=== PATIENT | male | born 1940 | race Caucasian/White ===

== ENCOUNTER → 2017-11-06 | Outpatient (CLI) | payer MEDICARE, OTHER ==
--- NOTE | 2017-11-06 08:10 | CT ---
EXAMINATION TYPE: CT chest wo con DATE OF EXAM: 11/06/2017 COMPARISON: 12/09/2012 HISTORY: Pulmonary Fibrosis CT DLP: 1036.7 mGycm. Automated Exposure Control for Dose Reduction was Utilized. TECHNIQUE: CT scan of the thorax is performed without IV contrast. FINDINGS: LUNGS: There are peripheral areas of groundglass consolidation involving both lungs. Interlobular sep katherine thickening noted at the lung bases. Mild central and basilar bronchiectasis noted. There is no pn eumothorax. 3 mm nodule left upper lobe. MEDIASTINUM: Lack of IV contrast is noted to limit evaluation for mediastinal and especially hilar ad enopathy. Heart is enlarged. Coronary artery calcification and atherosclerotic change of the aorta. A stefano appears of normal caliber.. OTHER: No additional significant abnormality is seen. IMPRESSION: 1. Findings compatible with chronic interstitial lung disease correlate for pulmonary fibrosis. 2. There are peripheral groundglass changes involving both lungs which can occasionally be seen with atelectasis correlate for alveolitis or pneumonitis. 3. Cardiomegaly with coronary artery calcification. 4. There is a 3 mm nodule within the left upper lobe on axial image 16 correlate with 6 month follow- up CT scan to confirm stability.
== END | disposition home or self-care (01) ==
LOC: RADCTMAIN 06:50
PROVIDERS: ATTEND Internal Medicine Critical Care Medicine
DX: R91.8 Other nonspecific abnormal finding of lung field (principal); I51.7 Cardiomegaly; I25.10 Atherosclerotic heart disease of native coronary artery without angina pectoris; Z88.8 Allergy status to other drugs, medicaments and biological substances
CPT/HCPCS: 71250

== ENCOUNTER → 2017-12-07 | Outpatient (CLI) | payer MEDICARE, OTHER ==
[2017-12-07 12:11] LABS: Basophils % (A) 0 %; Eosinophils # (A) 0.2 k/uL (0-0.7); Eosinophils % (A) 3 %; HCT 41.2 % (39.0-53.0); HGB 13.1 gm/dL (13.0-17.5); Hypochromasia Slight; Lymphocytes # (A) 1.7 k/uL (1.0-4.8); Lymphocytes % (A) 22 %; MCH 25.8 pg (25.0-35.0); MCHC 31.8 g/dL (31.0-37.0); MCV 81.3 fL (80.0-100.0); Mean Platelet Volume 8.3; Monocytes # (A) 0.5 k/uL (0-1.0); Monocytes % (A) 7 %; Neutrophils # (A) 5.2 k/uL (1.3-7.7); Neutrophils % (A) 67 %; Platelet Count 290 k/uL (150-450); RBC 5.07 m/uL (4.30-5.90); RDW 15.2 % (11.5-15.5); WBC 7.7 k/uL (3.8-10.6)
[2017-12-07 12:20] LABS: Potassium 4.5 mmol/L (3.5-5.1)
[2017-12-07 14:26] LABS: Appearance,Urine Clear (Clear); Bilirubin,Urine Negative (Negative); Blood,Urine Negative (Negative); Color,Urine Light Yellow; Glucose,Urine (UA) Negative (Negative); Ketones,Urine Negative (Negative); Leukocyte Esterase,Urine Negative (Negative); Nitrite,Urine Negative (Negative); Protein,Urine Negative (Negative); Urobilinogen,Urine <2.0 mg/dL (<2.0)
== END | disposition home or self-care (01) ==
LOC: LABPAT 11:35
PROVIDERS: ATTEND Thoracic Surgery (Cardiothoracic Vascular Surgery)
DX: Z01.812 Encounter for preprocedural laboratory examination (principal); J84.9 Interstitial pulmonary disease, unspecified
CPT/HCPCS: 36415; 80051; 81003; 82565; 84520; 85025

== ENCOUNTER 2017-12-14 05:45 | Inpatient (IN) | payer MEDICARE, OTHER ==
[~2017-12-14 05:45] MED LIST: DEXAMETHASONE SOD PHOSPHATE 10 MG/ML 1 ML VIAL IV ONE; ONDANSETRON ODT 4 MG TAB PO ONE; ceFAZolin IN SWFI 2 GM/20 ML SYRINGE IVP ONE
[2017-12-14] MEDS: LACTATED RINGERS 1,000 ML IV SCH (06:37)
[2017-12-14] MEDS ORDERED: LIDOCAINE 1% 20 ML VIAL (10MG/ML) FOR IV START INTRADERMA ONE (06:37)
[2017-12-14] MEDS ORDERED: GLYCOPYRROLATE 0.2 MG/ML 2 ML VIAL ONE (07:37)
[2017-12-14] MEDS ORDERED: PROPOFOL 10 MG/ML 20 ML VIAL IV ONE (07:37)
[2017-12-14] MEDS ORDERED: fentaNYL (PF) 50 MCG/ML 2 ML AMP ONE (07:37)
[2017-12-14] MEDS ORDERED: SUCCINYLCHOLINE CHLORIDE 100 MG/5 ML SYR IV ONE (07:37)
[2017-12-14] MEDS ORDERED: NEOSTIGMINE 1 MG/ML 10 ML VIAL ONE (07:37)
[2017-12-14] MEDS ORDERED: ePHEDrine SULFATE/0.9% NACL/PF 50 MG/5 ML SYRINGE IV ONE (07:37)
[2017-12-14] MEDS ORDERED: ROCURONIUM BROMIDE 10 MG/ML 10 ML VIAL IV ONE (07:37)
[2017-12-14] MEDS ORDERED: LIDOCAINE 1% INJ 10MG/ML (20 ML MDV) ONE (07:37)
[2017-12-14] MEDS ORDERED: MIDAZOLAM 2 MG/2 ML VIAL ONE (07:37)
[2017-12-14] MEDS ORDERED: BUPIVACAINE (PF) 0.5% 30 ML VIAL SQ ONE ×2 (08:17)
[2017-12-14] MEDS ORDERED: IPRATROPIUM-ALBUTEROL 3 ML NEB IH PRN (09:01)
[2017-12-14] MEDS ORDERED: BISACODYL 10 MG SUPP RECTAL PRN (09:01)
[2017-12-14] MEDS ORDERED: ONDANSETRON 4 MG/2 ML VIAL IVP PRN (09:01)
[2017-12-14] MEDS ORDERED: traMADol 50 MG TAB PO PRN (09:10)
--- NOTE | 2017-12-14 09:16 | P.OP ---
Date of Procedure: 12/14/17 Preoperative Diagnosis: Bilateral pulmonary infiltrates Postoperative Diagnosis: Same Procedure(s) Performed: Left thoracoscopic lung biopsy Anesthesia: GETA Surgeon: John Lee Estimated Blood Loss (ml): 10 IV fluids (ml): 700 Urine output (ml): 0 Pathology: other (Biopsies of left upper and left lower lobe was sent for pathology as well as cultures.) Disposition: PACU Indications for Procedure: 77-year-old male with exertional dyspnea and bilateral interstitial infiltrates and pulmonary fibrosis. Diagnostic biopsy was indicated for prognosis and possible therapy. Operative Findings: The lung was pink with scattered areas of anthracotic pigmentation. Lung compliance was poor. Description of Procedure: The patient was brought to the operating room, placed supine on the operating table, anesthetized and intubated with a double-lumen endotracheal tube. The airway was quite collapsible consistent with COPD. There were no endobronchial lesions noted. Double-lumen endotracheal tube was positioned with the bronchoscope and secured. Patient was turned in the right lateral decubitus position and the left chest sterilely prepped and draped. 3 one-inch incisions were made in the left chest and the left pleural space was entered. The left lung was deflated. Wedge biopsies of the inferior portion of the left lower and left upper lobe were obtained with multiple firings of Endo TERESA stapler. The lung specimens were split on the back table a small portion was sent for culture and the remainder for path. 28-Japanese chest tube was placed through separate stab incision and positioned posterior apically. Was secured with 0 Ethibond suture. Rib blocks were performed at the level of the incisions with half percent Marcaine. Incisions were closed with layers of Vicryl suture. Sterile dressings were applied and the patient was turned supine and extubated and transferred to recovery in stable condition.
--- NOTE | 2017-12-14 09:37 | XR ---
EXAMINATION TYPE: XR chest 1V DATE OF EXAM: 12/14/2017 COMPARISON: CT thorax dated 11/06/2017 HISTORY: Postop lung biopsy TECHNIQUE: Single frontal view of the chest is obtained. FINDINGS: There is a newly placed left-sided thoracostomy tube. No residual thorax is identified. Mi ld reactive pleural thickening is seen along the periphery of the costophrenic angle. There are overa ll low lung volumes and right basilar linear airspace disease that likely represents atelectasis. Car diomediastinal silhouette is exaggerated secondary to low lung volumes. Multilevel moderate degenerat esther changes of the thoracic spine and mild acromioclavicular arthropathy are seen. IMPRESSION: Interval insertion of the left-sided thoracostomy tube status post left-sided lung biops y with no residual pneumothorax. Right basilar airspace disease likely represents atelectasis.
[2017-12-14] MEDS: MORPHINE SULFATE 4 MG/ML SYRINGE IV PRN ×4 (10:34→12:10)
[2017-12-14] MEDS ORDERED: diphenhydrAMINE 50 MG/ML 1 ML VIAL IVP ONE (12:09)
[2017-12-14] MEDS: ACETAMINOPHEN IV (For NPO) 1,000 MG in EMPTY BAG 1 BAG IVPB SCH ×3 (12:42→23:06)
[2017-12-14] MEDS: KETOROLAC 30 MG/ML 1 ML VIAL IVP SCH ×3 (13:32→23:10)
[2017-12-14] MEDS: DEXTROSE 5%-0.45% NACL 1,000 ML IV SCH (14:05)
[2017-12-14] MEDS: IPRATROPIUM-ALBUTEROL 3 ML NEB IH SCH ×3 (14:06→20:06)
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
[2017-12-14] MEDS: ceFAZolin IN SWFI 2 GM/20 ML SYRINGE IVP SCH ×2 (18:17→23:07)
[2017-12-14] MEDS: GABAPENTIN 300 MG CAP PO SCH ×2 (18:18→21:35)
[2017-12-14] MEDS: HEPARIN SODIUM,PORCINE 5,000 UNIT/ML 1 ML VIAL SQ SCH ×2 (18:18→23:09)
[2017-12-14] MEDS ORDERED: traZODone HCL 100 MG TAB PO SCH (21:00)
[2017-12-15] MEDS: LACTATED RINGERS 1,000 ML IV SCH (06:04)
[2017-12-15] MEDS: KETOROLAC 30 MG/ML 1 ML VIAL IVP SCH ×2 (06:09→12:46)
[2017-12-15] MEDS: ACETAMINOPHEN IV (For NPO) 1,000 MG in EMPTY BAG 1 BAG IVPB SCH (06:10)
[2017-12-15 06:30] LABS: Basophils % (A) 0 %; Eosinophils # (A) 0.2 k/uL (0-0.7); Eosinophils % (A) 3 %; HCT 39.1 % (39.0-53.0); HGB 12.3 gm/dL (13.0-17.5); Hypochromasia Slight; Lymphocytes % (A) 12 %; MCH 25.9 pg (25.0-35.0); MCHC 31.5 g/dL (31.0-37.0); MCV 82.3 fL (80.0-100.0); Mean Platelet Volume 7.9; Monocytes # (A) 0.6 k/uL (0-1.0); Monocytes % (A) 7 %; Neutrophils # (A) 6.9 k/uL (1.3-7.7); Neutrophils % (A) 77 %; Platelet Count 237 k/uL (150-450); RBC 4.75 m/uL (4.30-5.90); RDW 15.2 % (11.5-15.5); WBC 8.9 k/uL (3.8-10.6)
[2017-12-15 06:47] LABS: Albumin 3.6 g/dL (3.5-5.0); Potassium 4.2 mmol/L (3.5-5.1); Total Bilirubin 0.6 mg/dL (0.2-1.3); Total Protein 6.1 g/dL (6.3-8.2)
[2017-12-15] MEDS ORDERED: PANTOPRAZOLE 40 MG TABLET PO SCH (07:30)
--- NOTE | 2017-12-15 07:46 | XR ---
EXAMINATION TYPE: XR chest 1V DATE OF EXAM: 12/15/2017 CLINICAL HISTORY: Left lung biopsy with chest tube progress study. TECHNIQUE: Single AP portable foraminal view of the chest is obtained. COMPARISON: Chest x-ray from one day earlier. CT chest November 06, 2017. FINDINGS: There is persistent left apical chest tube. There is chronic parenchymal change with worse donny left lower lung opacity. There is persistent improving patchy right basilar opacity. Cardiac herber houette size is stable and upper limits of normal. Osseous structures are intact. No sizable pneumoth orax is seen. IMPRESSION: Chronic parenchymal changes with increasing left mid to lower lung atelectasis and/or inf iltrate. Improving right basilar atelectasis and/or infiltrate is noted. Stable left apical chest tub e without sizable pneumothorax.
[2017-12-15 08:32] VITALS: TEMP 97.3
[2017-12-15] MEDS: IPRATROPIUM-ALBUTEROL 3 ML NEB IH SCH ×4 (08:49→15:38)
[2017-12-15] MEDS: GABAPENTIN 300 MG CAP PO SCH (08:58)
[2017-12-15] MEDS: HEPARIN SODIUM,PORCINE 5,000 UNIT/ML 1 ML VIAL SQ SCH (08:58)
[2017-12-15] MEDS: DEXTROSE 5%-0.45% NACL 1,000 ML IV SCH (08:59)
[2017-12-15] MEDS ORDERED: FUROSEMIDE 40 MG TAB PO SCH (09:00)
[2017-12-15] MEDS ORDERED: METOPROLOL TARTRATE 50 MG TAB PO SCH (09:00)
--- NOTE | 2017-12-15 09:50 | P.PN ---
Subjective Progress Note Date: 12/15/17 Principal diagnosis: Bilateral pulmonary infiltrates, interstitial lung disease / pulmonary fibrosis , history of coronary artery disease, history of CVA/TIA, hearing disorder, GERD , vitamin D deficiency, gout, hypertension, hyperlipidemia, history of myocardial infarction, and history of neuropathy. POD #1 left thoracoscopic lung biopsy. Patient is sitting up to the bedside chair eating his breakfast. He is in no acute distress. He denies any complaints of shortness of breath or pain at this time. His left pleural chest tube remains to low continuous wall suction - 20 cm H2O. No air leak present. He is tolerating use of his incentive spirometry and is achieving 1250 mL with encouragement. Objective - Vital Signs Vital signs: Vital Signs Temp 97.3 F L 12/15/17 08:00 Pulse 78 12/15/17 08:00 Resp 17 12/15/17 08:00 BP 142/84 12/15/17 08:00 Pulse Ox 92 L 12/15/17 08:00 Intake & Output 12/14/17 12/15/17 12/15/17 18:59 06:59 18:59 Intake Total 550 320 Output Total 225 605 150 Balance 325 -285 -150 Weight 101.5 kg Intake: IV 550 Intake, IV Titration 320 Amount Dextrose 5%-0.45% NaCl 1, 320 000 ml @ 40 mls/hr IV . Q24H [facility] Rx#:[id number] Output: Chest Tube Drainage 45 Left Lateral Chest 45 Drainage 210 Left Chest 210 Urine 200 350 150 Estimated Blood Loss 25 Other: Voiding Method Urinal Urinal # Voids 1 - Constitutional General appearance: Present: cooperative, no acute distress, obese - Respiratory Details: Lung sounds essentially clear to his bilateral upper lobes, few scattered crackles to his bilateral bases. Respirations are symmetrical and nonlabored. Oxygen saturation are 92% on 2 L nasal cannula. He is achieving 1250 mL on his incentive spirometry with encouragement. Left pleural chest tube remains intact to low continuous wall suction -20 cm H2O. There is no air leak present. Draining thin serosanguineous drainage. 210 mL output since surgery. - Cardiovascular Details: Regular rhythm and rate. S1 and S2 present, negative for S3, gallop or murmur. Remote telemetry showing normal sinus rhythm heart rate 90. No edema present. Knee-high sequential compression devices in place to his bilateral lower extremities. - Gastrointestinal Gastrointestinal Comment(s): Abdomen is soft, nontender nondistended. Active bowel sounds all 4 abdominal quadrants. Tolerating oral intake. - Genitourinary Genitourinary Comment(s): Voiding clear yellow urine. Adequate urine output. 500 mL output in the last 8 hours. - Integumentary Integumentary Comment(s): Skin is warm and dry. No clubbing or cyanosis present. Left chest incisions clean dry and approximated. No drainage or redness present. Dressings clean and dry. - Neurologic Neurologic: Present: CNII-XII intact - Musculoskeletal Musculoskeletal: Present: gait normal, strength equal bilaterally - Psychiatric Psychiatric: Present: A&O x's 3, appropriate affect - Allied health notes Allied health notes reviewed: nursing - Labs CBC & Chem 7: 12/15/17 05:39 12/15/17 05:39 Labs: Abnormal Lab Results - Last 24 Hours (Table) 12/15/17 12/15/17 Range/Units 05:39 05:39 Hgb 12.3 L (13.0-17.5) gm/dL Chloride 97 L (98-107) mmol/L BUN 25 H (9-20) mg/dL Glucose 138 H (74-99) mg/dL Alkaline Phosphatase 133 H (38-126) U/L Total Protein 6.1 L (6.3-8.2) g/dL Microbiology - Last 24 Hours (Table) 12/14/17 08:32 Acid Fast Bacilli Smear - Final Lung - Left Acid Fast Bacilli Culture - Preliminary 12/14/17 08:32 Acid Fast Bacilli Smear - Final Lung - Left Acid Fast Bacilli Culture - Preliminary 12/14/17 08:32 Gram Stain - Preliminary Lung - Left Tissue Culture - Preliminary 12/14/17 08:32 Gram Stain - Preliminary Lung - Left Tissue Culture - Preliminary 12/14/17 08:32 Anaerobic Culture - Preliminary Lung - Left 12/14/17 08:32 Anaerobic Culture - Preliminary Lung - Left - Imaging and Cardiology Chest x-ray: report reviewed, image reviewed Assessment and Plan (1) Interstitial lung disease Current Visit: Yes Status: Acute Code(s): J84.9 - INTERSTITIAL PULMONARY DISEASE, UNSPECIFIED SNOMED Code(s): 455778295 (2) Hypertension Current Visit: Yes Status: Acute Code(s): I10 - ESSENTIAL (PRIMARY) HYPERTENSION SNOMED Code(s): 90101868 (3) Hyperlipidemia Current Visit: Yes Status: Acute Code(s): E78.5 - HYPERLIPIDEMIA, UNSPECIFIED SNOMED Code(s): 75695184 (4) Gout Current Visit: Yes Status: Acute Code(s): M10.9 - GOUT, UNSPECIFIED SNOMED Code(s): 12505895 (5) GERD (gastroesophageal reflux disease) Current Visit: Yes Status: Acute Code(s): K21.9 - GASTRO-ESOPHAGEAL REFLUX DISEASE WITHOUT ESOPHAGITIS SNOMED Code(s): 537188107 (6) Neuropathy Current Visit: Yes Status: Acute Code(s): G62.9 - POLYNEUROPATHY, UNSPECIFIED SNOMED Code(s): 649765853 (7) History of coronary artery disease Current Visit: Yes Status: Acute Code(s): Z86.79 - PERSONAL HISTORY OF OTHER DISEASES OF THE CIRCULATORY SYSTEM SNOMED Code(s): 671473214 (8) History of myocardial infarction Current Visit: Yes Status: Acute Code(s): I25.2 - OLD MYOCARDIAL INFARCTION SNOMED Code(s): 571040266 (9) Hearing disorder Current Visit: Yes Status: Acute Code(s): H91.90 - UNSPECIFIED HEARING LOSS , UNSPECIFIED EAR SNOMED Code(s): 089457658 Plan: 1. We will place his left pleural chest tube to waterseal this morning, repeat chest x-ray 2 hours after and if there is no sign of air leak or pneumothorax we will discontinue his chest tube. 2. Encourage use of his incentive spirometry every hour while awake. 3. Pulmonary recommendations per Dr. Stone 4. More recommendations to follow based on the patient's clinical course. Possible discharge home today. Time with Patient: Greater than 30
--- NOTE | 2017-12-15 10:22 | P.PN ---
Subjective Progress Note Date: 12/15/17 Principal diagnosis: Interstitial lung disease, of unclear etiology, status post thoracoscopic lung biopsy Pulmonary consult dated 12/14/2017 77-year-old male who underwent a video-assisted thoracoscopic lung biopsy seen by Dr. John Lee. The patient came to me with complaints of shortness of breath and dry nonproductive cough. The symptoms have been present for quite some time. The patient was evaluated with a 6 minute walk distance a pulmonary function test and a high-resolution computed tomography scan. Everything suggested evidence of interstitial lung disease/pulmonary fibrosis. He says diagnosis, the patient was sent for a thoracoscopic lung biopsy. It was done today. Was on the left side. The patient is resting comfortably. No major complaints other than for some mild pain. Not short of breath. The patient has a history of gastroesophageal reflux disease hypertension vitamin D deficiency and gout. His current active medications are reviewed. On 12/15/2017 he seen in follow-up on selective care unit. He is sitting up in the chair, denies any acute distress, denies any worsening dyspnea. He is seems to be quite comfortable at rest. Chest x-ray from this morning shows chronic parenchymal changes with increasing left mid to lower lung atelectasis and/or infiltrate. There is improving right basilar atelectasis noted. And stable left apical chest tube without sizable pneumothorax. Cardiothoracic surgery is anticipated to remove the left sided chest tube today. Vital signs remain stable, is currently on room air with O2 sat at 92%. Patient's are even and nonlabored, lung sounds are positive for bibasilar mid to end expiratory velcro crackles. Left pleural chest tube remains to low continuous wall suction -20 cm water, no air leak present. Patient is able to achieve 1250 ML on his incentive spirometry. Denies any shortness of breath or pain at this time. Lung wedge biopsy still pending at this time Objective - Vital Signs Vital signs: Vital Signs Temp 97.3 F L 12/15/17 08:00 Pulse 78 12/15/17 08:00 Resp 17 12/15/17 08:00 BP 142/84 12/15/17 08:00 Pulse Ox 92 L 12/15/17 08:00 Intake & Output 12/14/17 12/15/17 12/15/17 18:59 06:59 18:59 Intake Total 550 320 Output Total 225 605 150 Balance 325 -285 -150 Weight 101.5 kg Intake: IV 550 Intake, IV Titration 320 Amount Dextrose 5%-0.45% NaCl 1, 320 000 ml @ 40 mls/hr IV . Q24H [facility] Rx#:[id number] Output: Chest Tube Drainage 45 Left Lateral Chest 45 Drainage 210 Left Chest 210 Urine 200 350 150 Estimated Blood Loss 25 Other: Voiding Method Urinal Urinal # Voids 1 - Exam No acute distress, oriented 3. HEENT examination is grossly unremarkable. Mucous membranes are moist. No oral lesions. Neck supple. Full range of motion. No adenopathy thyromegaly or neck vein distention. Cardiovascular examination reveals regular rhythm rate. S1-S2 normal. No S3 or S4. No discernible murmur noted. Lungs reveal bibasilar crackles. There are Velcro in quality. He is somewhat restricted in his breathing. No rhonchi or wheezes. Breath sounds are equal bilaterally.. Left pleural chest tube is in place to wall suction, -20 cm of water, no air leak present Abdomen soft bowel sounds are heard. No masses or tenderness. Extremities are intact. No cyanosis clubbing or edema. Skin is without rash or lesion. Neurologic examination is brief but nonfocal. - Labs CBC & Chem 7: 12/15/17 05:39 12/15/17 05:39 Labs: Abnormal Lab Results - Last 24 Hours (Table) 12/15/17 12/15/17 Range/Units 05:39 05:39 Hgb 12.3 L (13.0-17.5) gm/dL Chloride 97 L (98-107) mmol/L BUN 25 H (9-20) mg/dL Glucose 138 H (74-99) mg/dL Alkaline Phosphatase 133 H (38-126) U/L Total Protein 6.1 L (6.3-8.2) g/dL Microbiology - Last 24 Hours (Table) 12/14/17 08:32 Gram Stain - Preliminary Lung - Left Tissue Culture - Preliminary 12/14/17 08:32 Gram Stain - Preliminary Lung - Left Tissue Culture - Preliminary 12/14/17 08:32 Acid Fast Bacilli Smear - Final Lung - Left Acid Fast Bacilli Culture - Preliminary 12/14/17 08:32 Acid Fast Bacilli Smear - Final Lung - Left Acid Fast Bacilli Culture - Preliminary 12/14/17 08:32 Anaerobic Culture - Preliminary Lung - Left 12/14/17 08:32 Anaerobic Culture - Preliminary Lung - Left Assessment and Plan Plan: Assessment: Interstitial lung disease, of unclear etiology, postop day #1, status post thoracoscopic lung biopsy History of CAD History of hyperlipidemia History of chronic kidney disease History of elevated PSA Rule out pneumoconiosis versus asbestosis as the patient has a significant occupational history. Plan: Patient remains stable from pulmonary standpoint, lung wedge biopsy still pending at this time, denies any dyspnea, denies any pain. CT surgery is planned and put in the left pleural chest tube to waterseal, and possibly removing it later on today there is no pneumothorax. Encouraged to use of incentive spirometry. Patient will need outpatient follow-up with Dr. Stone in the office regarding the results of his lung wedge biopsy, and the preliminary biopsy report will be done at this facility, and the final report will be done at the [facility] by Dr. Fransico Zavala. I performed a history & physical examination of the patient and discussed their management with my nurse practitioner, Eli Ayala. I reviewed the nurse practitioner's note and agree with the documented findings and plan of care. Lung sounds are positive for bibasilar mid to end expiratory Velcro crackles. The findings and the impression was discussed with the patient. I attest to the documentation by the nurse practitioner. Time with Patient: Less than 30
--- NOTE | 2017-12-15 10:28 | XR ---
EXAMINATION TYPE: XR chest 2V DATE OF EXAM: 12/15/2017 COMPARISON: Chest x-ray from earlier today. HISTORY: Left lung biopsy progress study. Chest tube. TECHNIQUE: Frontal and lateral views of the chest are obtained. FINDINGS: There is persistent left apical chest tube. There is persistent bilateral lower lung opaci ties. No large pleural effusion or pneumothorax is seen bilaterally. The cardiac silhouette size is s table and upper limits of normal. Multilevel spurring and spine is redemonstrated. IMPRESSION: Persistent left greater than right bilateral lower lung atelectasis and/or infiltrate. L eft-sided chest tube without sizable pneumothorax. No significant change from earlier today.
[2017-12-15 12:03] VITALS: BP 118/64; PULSE 71; RESP 15
--- NOTE | 2017-12-20 10:03 | P.DS ---
Providers Date of admission: 12/14/17 05:45 Expected date of discharge: 12/15/17 Attending physician: John Lee Consults: 12/14/17 09:01 Consult Physician Routine Consulting Provider: Phoenix Stone Reason/Comments: Pulmonary management Do you want consulting provider notified?: Already Contacted Primary care physician: Chago Fuller - Discharge Diagnosis(es) (1) Interstitial lung disease Current Visit: Yes Status: Acute (2) Hypertension Current Visit: Yes Status: Acute (3) Hyperlipidemia Current Visit: Yes Status: Acute (4) Gout Current Visit: Yes Status: Acute (5) GERD (gastroesophageal reflux disease) Current Visit: Yes Status: Acute (6) Neuropathy Current Visit: Yes Status: Acute (7) History of coronary artery disease Current Visit: Yes Status: Acute (8) History of myocardial infarction Current Visit: Yes Status: Acute (9) Hearing disorder Current Visit: Yes Status: Acute Hospital Course: FINAL DIAGNOSIS: 1. Bilateral pulmonary infiltrates 2. Interstitial lung disease/pulmonary fibrosis 3. History of coronary artery disease 4. History of CVA/TIA 5. Hearing disorder 6. GERD 7. Vitamin D deficiency 8. Hypertension 9. Hyperlipidemia 10. History of myocardial infarction 11. History of neuropathy PRINCIPAL PROCEDURE: 1. Left thoracoscopic lung biopsy HISTORY OF PRESENT ILLNESS: This is a 77-year-old gentleman who is followed by Dr. Phoenix Stone from pulmonary medicine on an outpatient basis. Recently, the patient has had complaints of progressive shortness of breath with a dry nonproductive cough. 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 A computed tomography scan of his chest was completed on an outpatient basis which demonstrated patchy areas of pulmonary fibrosis consistent with interstitial lung disease. Subsequently due to the patient's progressive shortness of breath and computed tomography scan results a consult was placed for cardiothoracic surgery for possible lung biopsy and diagnosis. Dr. Lee met with the patient and reviewed the computed tomography scan results with the patient and recommended an elective left thoracoscopic lung biopsy. HOSPITAL COURSE: The patient was admitted to the hospital and after obtaining consent he was taken to the operating room where he underwent elective left thoracoscopic lung biopsy performed by Dr. John Lee. The patient was recovered and subsequently transferred to [address] [place] [address] where he was further monitored. Patient's oxygen was weaned off and he was up ambulating in the hallway with minimal assistance. The patient has received written and verbal instructions regarding his medications, any activity restrictions, signs and symptoms requiring physician noted complications and his follow-up appointments. COMPLICATIONS: There were no postoperative complications. CONSULTATIONS: 1. Dr. Stone for pulmonary management. Plan - Discharge Summary Discharge Rx Participant: Yes New Discharge Prescriptions: No Action Nitroglycerin Sl Tabs [Nitrostat] 0.4 mg SUBLINGUAL Q5M PRN PRN Reason: Chest Pain Metoprolol Tartrate [Lopressor] 50 mg PO QAM Gabapentin 600 mg PO TID Omeprazole 40 mg PO QAM traZODone HCL 100 mg PO HS Furosemide [Lasix] 40 mg PO QAM Ergocalciferol (Vitamin D2) [Vitamin D2] 50,000 unit PO SA Allopurinol [Zyloprim] 100 mg PO BID Aspirin EC [Ecotrin Low Dose] 81 mg PO DAILY Discharge Medication List Metoprolol Tartrate [Lopressor] 50 mg PO QAM 03/26/14 [History] Nitroglycerin Sl Tabs [Nitrostat] 0.4 mg SUBLINGUAL Q5M PRN 03/26/14 [History] Gabapentin 600 mg PO TID 07/14/14 [History] Omeprazole 40 mg PO QAM 07/10/17 [History] Allopurinol [Zyloprim] 100 mg PO BID 12/12/17 [History] Ergocalciferol (Vitamin D2) [Vitamin D2] 50,000 unit PO SA 12/12/17 [History] Furosemide [Lasix] 40 mg PO QAM 12/12/17 [History] traZODone HCL 100 mg PO HS 12/12/17 [History] Aspirin EC [Ecotrin Low Dose] 81 mg PO DAILY 12/14/17 [History] Follow up Appointment(s)/Referral(s): John Lee MD [STAFF PHYSICIAN] - 01/11/18 2:00 pm Phoenix Stone DO [Doctor of Osteopathic Medicine] - 12/22/17 11:00 am Patient Instructions/Handouts: Chronic Lung Disease and Infection Prevention ( DC), Video Assisted Thoracoscopic Surgery (DC) Discharge Disposition: HOME WITH HOME HEALTH SERVICES
== END 2017-12-15 16:36 | disposition home health service (06) | DRG 164 ==
LOC: 2ORMAIN 05:45 → 6SEL 13:45
PROVIDERS: ADMIT Thoracic Surgery (Cardiothoracic Vascular Surgery); ATTEND Thoracic Surgery (Cardiothoracic Vascular Surgery)
PROC: 0BBJ0ZX Excision of Left Lower Lung Lobe, Open Approach, Diagnostic (ICD-10-PCS; principal; 2017-12-14 07:30)
PROC: 0BBG0ZX Excision of Left Upper Lung Lobe, Open Approach, Diagnostic (ICD-10-PCS; principal; 2017-12-14 07:30)
DX: J84.10 Pulmonary fibrosis, unspecified (principal); J98.11 Atelectasis; E78.5 Hyperlipidemia, unspecified; G62.9 Polyneuropathy, unspecified; H91.90 Unspecified hearing loss, unspecified ear; I12.9 Hypertensive chronic kidney disease with stage 1 through stage 4 chronic kidney disease, or unspecified chronic kidney disease; I25.10 Atherosclerotic heart disease of native coronary artery without angina pectoris; I25.2 Old myocardial infarction; K21.9 Gastro-esophageal reflux disease without esophagitis; M10.9 Gout, unspecified; N18.9 Chronic kidney disease, unspecified; Z79.899 Other long term (current) drug therapy; Z83.3 Family history of diabetes mellitus; Z86.73 Personal history of transient ischemic attack (TIA), and cerebral infarction without residual deficits; Z87.891 Personal history of nicotine dependence; Z96.641 Presence of right artificial hip joint; Z77.090 Contact with and (suspected) exposure to asbestos; Z88.8 Allergy status to other drugs, medicaments and biological substances; Z80.3 Family history of malignant neoplasm of breast; Z79.1 Long term (current) use of non-steroidal anti-inflammatories (NSAID); Z79.82 Long term (current) use of aspirin; E66.9 Obesity, unspecified; Z68.30 Body mass index [BMI] 30.0-30.9, adult; E55.9 Vitamin D deficiency, unspecified; Z86.14 Personal history of Methicillin resistant Staphylococcus aureus infection; Z95.5 Presence of coronary angioplasty implant and graft
CPT/HCPCS: 71045; 71046; 80053; 85025; 87070; 87075; 87077; 87116; 87186; 87205; 87206; 88307; 94640; 94760

== ENCOUNTER 2018-03-20 09:34 | Emergency (ER) | payer MEDICARE, OTHER ==
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
[2018-03-20 12:36] VITALS: BP 176/90; PULSE 54; RESP 16; TEMP 97.1
== END 2018-03-20 12:37 | disposition home or self-care (01) ==
LOC: EC 09:34
DX: M54.2 Cervicalgia (principal); R53.1 Weakness; I25.10 Atherosclerotic heart disease of native coronary artery without angina pectoris; H91.90 Unspecified hearing loss, unspecified ear; E78.5 Hyperlipidemia, unspecified; I10 Essential (primary) hypertension; I25.2 Old myocardial infarction; G62.9 Polyneuropathy, unspecified; Z86.73 Personal history of transient ischemic attack (TIA), and cerebral infarction without residual deficits; Z87.19 Personal history of other diseases of the digestive system; Z86.14 Personal history of Methicillin resistant Staphylococcus aureus infection; Z87.891 Personal history of nicotine dependence; Z95.5 Presence of coronary angioplasty implant and graft; Z96.641 Presence of right artificial hip joint; Z98.890 Other specified postprocedural states; Z79.82 Long term (current) use of aspirin; Z79.899 Other long term (current) drug therapy; V49.59XA Passenger injured in collision with other motor vehicles in traffic accident, initial encounter
CPT/HCPCS: 70450; 72125; 99284

== ENCOUNTER 2018-05-26 13:58 | Inpatient (IN) | payer MEDICARE, OTHER ==
[2018-05-26] MEDS ORDERED: VANCOMYCIN IV PER PHARMACY 1 EACH MISC MISCELLANE PRN (15:14)
[2018-05-26] MEDS ORDERED: HYDROcodone/APAP 5-325MG 1 EACH TAB PO STA (15:17)
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
[2018-05-26] MEDS ORDERED: VANCOMYCIN 1,750 MG in SODIUM CHLORIDE 0.9% 500 ML 500 ML IVPB STA (15:22)
[2018-05-26 15:48] LABS: Basophils % (A) 0 %; Eosinophils # (A) 0.4 k/uL (0-0.7); Eosinophils % (A) 4 %; HCT 43.1 % (39.0-53.0); HGB 13.5 gm/dL (13.0-17.5); Hypochromasia Slight; Lymphocytes # (A) 2.1 k/uL (1.0-4.8); Lymphocytes % (A) 23 %; MCH 25.9 pg (25.0-35.0); MCHC 31.4 g/dL (31.0-37.0); MCV 82.6 fL (80.0-100.0); Mean Platelet Volume 8.9; Monocytes # (A) 0.6 k/uL (0-1.0); Monocytes % (A) 7 %; Neutrophils # (A) 5.9 k/uL (1.3-7.7); Neutrophils % (A) 64 %; Platelet Count 296 k/uL (150-450); RBC 5.22 m/uL (4.30-5.90); RDW 15.4 % (11.5-15.5); WBC 9.2 k/uL (3.8-10.6)
[2018-05-26 15:55] LABS: Potassium 4.6 mmol/L (3.5-5.1)
[2018-05-26 16:00] LABS: Albumin 3.8 g/dL (3.5-5.0); C Reactive Protein 8.4 mg/L (<10.0); Calcium 9.7 mg/dL (8.4-10.2); Total Bilirubin 0.4 mg/dL (0.2-1.3); Total Protein 6.7 g/dL (6.3-8.2)
--- NOTE | 2018-05-26 16:31 | XR ---
EXAMINATION TYPE: XR ankle limited LT, XR tibia fibula LT DATE OF EXAM: 05/26/2018 CLINICAL HISTORY: Open wound outer left leg. TECHNIQUE: Frontal and lateral images of the left leg and ankle are obtained. COMPARISON: None. FINDINGS: No acute fracture or dislocation in left tibia or fibula is seen. Some demineralization is present. There is mild tricompartment joint space loss and spurring at level of knee. Posterior vascu lar calcification is present. Some demineralization is seen. There is no acute fracture/dislocation evident in the left ankle. The ankle mortise appears within normal limits. Small inferior calcaneal spur is noted. Mild diffuse subcutaneous edema is present. Ir regularity over lateral malleolus likely reflects open wound or ulcer. No suspicious adjacent cortica l destruction or periosteal reaction is noted to suggest acute osteomyelitis. IMPRESSION: As above.
[2018-05-26] MEDS ORDERED: NALOXONE 0.4 MG/ML 1 ML VIAL IV PRN (17:06)
[2018-05-26 19:57] VITALS: BMI 28.8
[2018-05-26] MEDS ORDERED: MELATONIN 5 MG TABLET PO PRN (20:17)
[2018-05-26] MEDS ORDERED: ATORVASTATIN 40 MG TAB PO SCH (21:00)
[2018-05-26] MEDS ORDERED: traZODone HCL 50 MG TAB PO SCH (21:00)
[2018-05-26] MEDS: METOPROLOL TARTRATE 50 MG TAB PO SCH (21:58)
[2018-05-26] MEDS: GABAPENTIN 300 MG CAP PO SCH (21:58)
[2018-05-27] MEDS: HYDROcodone/APAP 5-325MG 1 EACH TAB PO PRN ×4 (00:10→19:58)
[2018-05-27] MEDS: SODIUM CHLORIDE 0.9% 1,000 ML IV SCH ×2 (05:45→13:11)
[2018-05-27 06:50] LABS: Basophils % (A) 1 %; Eosinophils # (A) 0.2 k/uL (0-0.7); Eosinophils % (A) 4 %; HCT 39.4 % (39.0-53.0); HGB 12.4 gm/dL (13.0-17.5); Lymphocytes # (A) 1.2 k/uL (1.0-4.8); Lymphocytes % (A) 20 %; MCH 25.5 pg (25.0-35.0); MCHC 31.4 g/dL (31.0-37.0); MCV 81.2 fL (80.0-100.0); Mean Platelet Volume 8.2; Monocytes # (A) 0.4 k/uL (0-1.0); Monocytes % (A) 6 %; Neutrophils % (A) 68 %; Platelet Count 260 k/uL (150-450); RBC 4.85 m/uL (4.30-5.90); RDW 15.4 % (11.5-15.5); WBC 5.9 k/uL (3.8-10.6)
[2018-05-27 07:03] LABS: Anion Gap 5 mmol/L; Blood Urea Nitrogen 20 mg/dL (9-20); Calcium 8.9 mg/dL (8.4-10.2); Carbon Dioxide 28 mmol/L (22-30); Chloride 107 mmol/L (98-107); Glucose 95 mg/dL (74-99); Potassium 4.2 mmol/L (3.5-5.1); Sodium 140 mmol/L (137-145)
[2018-05-27] MEDS: METOPROLOL TARTRATE 50 MG TAB PO SCH ×2 (08:34→20:04)
[2018-05-27] MEDS: GABAPENTIN 300 MG CAP PO SCH ×3 (08:34→23:01)
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
[2018-05-27] MEDS: VANCOMYCIN 1,750 MG in SODIUM CHLORIDE 0.9% 500 ML 500 ML IVPB SCH ×3 (15:39)
[2018-05-27] MEDS: ATORVASTATIN 40 MG TAB PO SCH (20:03)
[2018-05-27] MEDS: traZODone HCL 50 MG TAB PO SCH (20:04)
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
[2018-05-28] MEDS: SODIUM CHLORIDE 0.9% 1,000 ML IV SCH ×2 (05:11→21:47)
[2018-05-28 07:57] LABS: Calcium 9.1 mg/dL (8.4-10.2); Potassium 4.4 mmol/L (3.5-5.1)
[2018-05-28] MEDS: COLLAGENASE 250 UNIT/GM OINTMENT 30 GM TUBE TOPICAL SCH (08:23)
[2018-05-28] MEDS: VANCOMYCIN 1,750 MG in SODIUM CHLORIDE 0.9% 500 ML 500 ML IVPB SCH ×2 (08:23→23:37)
[2018-05-28] MEDS: GABAPENTIN 300 MG CAP PO SCH ×3 (08:24→21:47)
[2018-05-28] MEDS: METOPROLOL TARTRATE 50 MG TAB PO SCH ×2 (08:24→21:46)
[2018-05-28] MEDS: ENOXAPARIN 40 MG/0.4 ML SYRINGE SQ SCH (08:24)
--- NOTE | 2018-05-28 19:31 | P.PN ---
Subjective Progress Note Date: 05/28/18 Principal diagnosis: Left lower extremity cellulitis Mr. Panchal is a 78-year-old male with a past medical history of coronary artery disease, hyperlipidemia, hypertension, [place], Pulmonary fibrosis coming to the hospital with a chief complaint of a nonhealing ulcer on his left foot. The patient states that he has the left foot ulcer for more than couple of years and he has been living with wound care clinic and also it seems to be healing but keeps coming back again. For the past 1 week patient states that his ulcer has been worsening and his pain has been progressively worsening that he had to come to the ER. Today patient is sitting up in his bed appears to be in acute distress. Patient states that he has been getting dressing for his lower extremity cellulitis. Patient denies having any fevers chills or rigors. No cough or difficulty in breathing. No chest pain or palpitations. No abdominal pain nausea vomiting or diarrhea. No dysuria or hematuria. Patient's medications have been reviewed Objective - Vital Signs Vital signs: Vital Signs Temp 97.3 F L 05/28/18 12:00 Pulse 59 L 05/28/18 12:00 Resp 22 05/28/18 12:00 BP 147/81 05/28/18 12:00 Pulse Ox 97 05/28/18 12:00 Intake & Output 05/28/18 05/28/18 05/29/18 06:59 18:59 06:59 Intake Total 1080 Balance 1080 Intake: Intake, IV Titration 720 Amount Sodium Chloride 0.9% 1, 720 000 ml @ 60 mls/hr IV . [id number] [facility] Rx#:[id number] Oral 360 Other: Voiding Method Toilet Toilet Urinal Urinal # Voids 2 3 # Bowel Movements 2 - Exam GEN. APPEARANCE: alert, in no apparent distress HEAD EXAM: atraumatic, normocephalic, normal inspection EYE EXAM: normal appearance, PERRL, EOMI. Absent: scleral icterus, conjunctival injection, periorbital swelling NECK EXAM: normal inspection. Absent: tenderness, meningismus, full ROM, lymphadenopathy RESPIRATORY EXAM: Bilateral breath sounds positive. Few crackles at the lower lung bases bilaterally CARDIOVASCULAR EXAM: S1 and S2 heard. No additional sounds. GI/ABDOMINAL EXAM: soft, normal bowel sounds. Absent: distended, tenderness, guarding, rebound, rigid EXTREMITIES EXAM: Right lower extremity within normal limits. Left lower extremity- an ulcer with slough on the lateral aspect of the left foot measuring 6-8 cm in length and also a small one on the medial aspect proximal to the ankle. NEUROLOGICAL EXAM: alert, oriented X3, no focal deficits - Labs CBC & Chem 7: 05/27/18 06:22 05/28/18 06:40 Labs: Microbiology - Last 24 Hours (Table) 05/26/18 15:35 Blood Culture - Preliminary Blood No Growth after 48 hours 05/28/18 00:29 Gram Stain - Preliminary Ankle - Left Wound Culture - Preliminary 05/28/18 00:29 Gram Stain - Preliminary Ankle - Left Wound Culture - Preliminary Assessment and Plan Assessment: ASSESSMENT Left lower extremity cellulitis requiring IV antibiotics History of coronary artery disease Hypertension Hyperlipidemia Hard of hearing Pulmonary fibrosis Chronic left lower extremity nonhealing ulcer PLAN: Patient has been started on IV vancomycin for the nonhealing ulcer of his left lower extremity. ID Dr. Senior has been consulted- who recommends continuing the IV vancomycin until wound cultures are back. Patient has been resumed on his home medications. Further recommendations to follow depending on the progress of the patient.
[2018-05-28] MEDS: traZODone HCL 50 MG TAB PO SCH (21:46)
[2018-05-28] MEDS: ATORVASTATIN 40 MG TAB PO SCH (21:46)
[2018-05-28] MEDS: HYDROcodone/APAP 5-325MG 1 EACH TAB PO PRN (21:50)
--- NOTE | 2018-05-28 22:30 | PN ---
PROGRESS NOTE DATE OF SERVICE: 05/28/2018. REASON FOR FOLLOWUP: Left leg wound and cellulitis. INTERVAL HISTORY: The patient is currently afebrile. He is breathing comfortably. Denies having any chest pain, shortness of breath, cough, abdominal pain. No pain to the left leg area. Redness is slightly decreased. EXAMINATION: Blood pressure is 150/98 with a pulse of 57, temperature 97, he is 95% on room air. GENERAL DESCRIPTION: An elderly male lying in bed in no distress. RESPIRATORY SYSTEM: Unlabored breathing. Clear to auscultation anteriorly. HEART: S1, S2 regular rate and rhythm. ABDOMEN: Soft. EXTREMITIES: Left leg swelling and redness slightly decreased. No drainage. LABS: BUN of 17, creatinine 0.95. Wound cultures currently pending. DIAGNOSTIC IMPRESSION AND PLAN: Patient with left leg nonhealing wound with secondary cellulitis, previous history of MRSA infection. The patient is to continue with vancomycin while waiting for the culture to finalize. Local care to continue with Santyl followed by moist dressing. Continue supportive care. MMODL / IJN: [id number] /
[2018-05-28] MEDS ORDERED: VANCOMYCIN TROUGH DUE 1 EACH MISC MISCELLANE ONE (23:00)
[2018-05-29] MEDS: HYDROcodone/APAP 5-325MG 1 EACH TAB PO PRN ×2 (01:21→20:57)
[2018-05-29 08:11] LABS: Calcium 9.2 mg/dL (8.4-10.2); Potassium 4.6 mmol/L (3.5-5.1)
[2018-05-29] MEDS: ENOXAPARIN 40 MG/0.4 ML SYRINGE SQ SCH (09:38)
[2018-05-29] MEDS: GABAPENTIN 300 MG CAP PO SCH ×3 (09:38→20:57)
[2018-05-29] MEDS: METOPROLOL TARTRATE 50 MG TAB PO SCH ×2 (09:39→20:58)
[2018-05-29] MEDS: COLLAGENASE 250 UNIT/GM OINTMENT 30 GM TUBE TOPICAL SCH (09:51)
[2018-05-29] MEDS: SODIUM CHLORIDE 0.9% 1,000 ML IV SCH (16:07)
[2018-05-29] MEDS: VANCOMYCIN 1,750 MG in SODIUM CHLORIDE 0.9% 500 ML 500 ML IVPB SCH (16:07)
[2018-05-29] MEDS: traZODone HCL 50 MG TAB PO SCH (20:58)
[2018-05-29] MEDS: ATORVASTATIN 40 MG TAB PO SCH (20:58)
--- NOTE | 2018-05-29 23:28 | P.PN ---
Subjective Progress Note Date: 05/29/18 Principal diagnosis: Left lower extremity cellulitis Mr. Panchal is a 78-year-old male with a past medical history of coronary artery disease, hyperlipidemia, hypertension, [place], Pulmonary fibrosis coming to the hospital with a chief complaint of a nonhealing ulcer on his left foot. The patient states that he has the left foot ulcer for more than couple of years and he has been living with wound care clinic and also it seems to be healing but keeps coming back again. For the past 1 week patient states that his ulcer has been worsening and his pain has been progressively worsening that he had to come to the ER. On 05/29/18 - Today patient is sitting up in his bed appears to be in acute distress. Patient denies having any fevers chills or rigors. Pt states improvement in breathing and LE swelling. No cough or difficulty in breathing. No chest pain or palpitations. No abdominal pain nausea vomiting or diarrhea. No dysuria or hematuria. Patient's medications have been reviewed Objective - Vital Signs Vital signs: Vital Signs Temp 97.2 F L 05/29/18 12:36 Pulse 58 L 05/29/18 12:36 Resp 18 05/29/18 12:36 BP 143/80 05/29/18 12:36 Pulse Ox 95 05/29/18 12:36 Intake & Output 05/28/18 05/29/18 05/29/18 18:59 06:59 18:59 Intake Total 1670 Output Total 200 0 Balance 1470 0 Weight 99.337 kg Intake: Intake, IV Titration 480 Amount Sodium Chloride 0.9% 1, 480 000 ml @ 60 mls/hr IV . [id number] [facility] Rx#:[id number] Oral 1190 Output: Urine 200 Stool 0 Other: Voiding Method Toilet Toilet Toilet Urinal Urinal Urinal # Voids 3 4 3 # Bowel Movements 2 1 - Exam GEN. APPEARANCE: alert, in no apparent distress HEAD EXAM: atraumatic, normocephalic, normal inspection EYE EXAM: normal appearance, PERRL, EOMI. Absent: scleral icterus, conjunctival injection, periorbital swelling NECK EXAM: normal inspection. Absent: tenderness, meningismus, full ROM, lymphadenopathy RESPIRATORY EXAM: Bilateral breath sounds positive. Few crackles at the lower lung bases bilaterally CARDIOVASCULAR EXAM: S1 and S2 heard. No additional sounds. GI/ABDOMINAL EXAM: soft, normal bowel sounds. Absent: distended, tenderness, guarding, rebound, rigid EXTREMITIES EXAM: Right lower extremity within normal limits. Left lower extremity- an ulcer with slough on the lateral aspect of the left foot measuring 6-8 cm in length and also a small one on the medial aspect proximal to the ankle. NEUROLOGICAL EXAM: alert, oriented X3, no focal deficits - Labs CBC & Chem 7: 05/27/18 06:22 05/29/18 06:53 Labs: Abnormal Lab Results - Last 24 Hours (Table) 05/29/18 Range/Units 06:53 Chloride 108 H (98-107) mmol/L Microbiology - Last 24 Hours (Table) 05/28/18 00:29 Gram Stain - Preliminary Ankle - Left Wound Culture - Preliminary Presumptive MRSA Strep agalactiae - (group b) Gram Neg Bacilli 05/28/18 00:29 Gram Stain - Preliminary Ankle - Left Wound Culture - Preliminary Presumptive MRSA Strep agalactiae - (group b) 05/26/18 15:35 Blood Culture - Preliminary Blood No Growth after 48 hours Assessment and Plan Assessment: ASSESSMENT Left lower extremity cellulitis requiring IV antibiotics History of coronary artery disease Hypertension Hyperlipidemia Hard of hearing Pulmonary fibrosis Chronic left lower extremity nonhealing ulcer PLAN: Patient has been started on IV vancomycin for the nonhealing ulcer of his left lower extremity. ID Dr. Senior has been consulted- who recommends continuing the IV vancomycin until wound cultures are back.Cultures showing ? MRSA . Patient has been resumed on his home medications. Further recommendations based on the clinical course.
--- NOTE | 2018-05-29 23:49 | PN ---
PROGRESS NOTE DATE OF SERVICE: 05/29/2018 REASON FOR FOLLOWUP: Left leg wound with secondary cellulitis. INTERVAL HISTORY: The patient is currently afebrile. He is feeling slightly better, breathing comfortably. Denies having any chest pain, shortness of breath or cough. No abdominal pain or any worsening pain to the left leg area. PHYSICAL EXAMINATION: Blood pressure is 139/85 with a pulse of 63, temperature 97.1. He is 95% on room air. General description is an elderly male lying in bed in no distress. RESPIRATORY SYSTEM: Unlabored breathing. Clear to auscultation anteriorly. HEART: S1, S2. Regular rate and rhythm. ABDOMEN: Soft. No tenderness. Left leg wound is currently dressed. No obvious drainage on the dressing. The redness has decreased. LABS: Wound culture with MRSA presumptive. BUN of 19, creatinine 1.01. Vancomycin trough is 16.3. DIAGNOSTIC IMPRESSION AND PLAN: Patient with left leg wound with secondary cellulitis, culture positive for methicillin- resistant Staphylococcus aeruginosa. Patient at this time will continue on vancomycin while waiting for the final ID and sensitivity of this pathogen to determine discharge antibiotics. Continue with supportive care. MMODL / IJN: [id number] /
[2018-05-30 07:25] LABS: Calcium 9.1 mg/dL (8.4-10.2); Potassium 4.7 mmol/L (3.5-5.1)
[2018-05-30] MEDS: SODIUM CHLORIDE 0.9% 1,000 ML IV SCH (08:00)
[2018-05-30] MEDS: VANCOMYCIN 1,750 MG in SODIUM CHLORIDE 0.9% 500 ML 500 ML IVPB SCH ×2 (08:02→23:55)
[2018-05-30] MEDS: ENOXAPARIN 40 MG/0.4 ML SYRINGE SQ SCH (08:02)
[2018-05-30] MEDS: GABAPENTIN 300 MG CAP PO SCH ×3 (08:03→21:51)
[2018-05-30] MEDS: METOPROLOL TARTRATE 50 MG TAB PO SCH ×2 (08:03→21:52)
[2018-05-30] MEDS: HYDROcodone/APAP 5-325MG 1 EACH TAB PO PRN ×2 (08:03→21:50)
[2018-05-30] MEDS: COLLAGENASE 250 UNIT/GM OINTMENT 30 GM TUBE TOPICAL SCH (10:05)
[2018-05-30] MEDS: CIPROFLOXACIN HCL 500 MG TAB PO SCH ×2 (13:00→21:51)
[2018-05-30] MEDS: ATORVASTATIN 40 MG TAB PO SCH (21:50)
[2018-05-30] MEDS: traZODone HCL 50 MG TAB PO SCH (21:51)
--- NOTE | 2018-05-30 23:11 | PN ---
PROGRESS NOTE DATE OF SERVICE: 05/30/2018 REASON FOR FOLLOWUP: Left leg wound and cellulitis. INTERVAL HISTORY: The patient is currently afebrile. He is breathing comfortably. Denies having any chest pain, shortness of breath, cough, abdominal pain, or any worsening pain to the left leg area. EXAMINATION: Blood pressure 147/78 with a pulse of 75, temperature 97.1. He is 95% on room air. General description is an elderly male up in the bed in no distress. RESPIRATORY SYSTEM: Unlabored breathing, clear to auscultation anteriorly. HEART: S1, S2. Regular rate and rhythm. ABDOMEN: Soft, no tenderness. Left leg with wound and did have some but the redness is improved, no drainage. LABS: BUN of 19, creatinine 1.0. Vancomycin trough . Wound culture shows MRSA and Klebsiella. DIAGNOSTIC IMPRESSION AND PLAN: Patient with left leg wound with secondary cellulitis with multiple pathogen superficial wound. Recommend keeping the patient on IV vancomycin for the next 24-48 hours and hopefully finish therapy with oral Bactrim DS that should cover both the pathogens. Local care to continue with Santyl followed by moist dressing as that has led to more maceration of the wound. Continue supportive care. Family present at the bedside. Questions answered. MMJORGEL / IJN: [id number] /
[2018-05-31] MEDS: SODIUM CHLORIDE 0.9% 1,000 ML IV SCH ×2 (03:38→18:09)
[2018-05-31 05:56] VITALS: RESP 16
[2018-05-31] MEDS: ENOXAPARIN 40 MG/0.4 ML SYRINGE SQ SCH (07:46)
[2018-05-31] MEDS: CIPROFLOXACIN HCL 500 MG TAB PO SCH ×2 (07:46→21:27)
[2018-05-31] MEDS: METOPROLOL TARTRATE 50 MG TAB PO SCH ×2 (07:46→21:27)
[2018-05-31] MEDS: GABAPENTIN 300 MG CAP PO SCH ×3 (07:46→21:27)
[2018-05-31 09:50] LABS: Calcium 9.8 mg/dL (8.4-10.2); Potassium 4.9 mmol/L (3.5-5.1)
[2018-05-31] MEDS: COLLAGENASE 250 UNIT/GM OINTMENT 30 GM TUBE TOPICAL SCH (11:06)
[2018-05-31] MEDS: VANCOMYCIN 1,750 MG in SODIUM CHLORIDE 0.9% 500 ML 500 ML IVPB SCH (15:19)
[2018-05-31] MEDS: HYDROcodone/APAP 5-325MG 1 EACH TAB PO PRN (19:24)
[2018-05-31] MEDS: traZODone HCL 50 MG TAB PO SCH (21:27)
[2018-05-31] MEDS: ATORVASTATIN 40 MG TAB PO SCH (21:27)
--- NOTE | 2018-05-31 23:45 | PN ---
PROGRESS NOTE DATE OF SERVICE: 05/31/2018. REASON FOR FOLLOWUP: Left leg wound with secondary cellulitis. INTERVAL HISTORY: The patient is currently afebrile. He is breathing comfortably. Denies having any chest pain, shortness of breath, cough, abdominal pain, or any worsening pain to the left leg area. EXAMINATION: Blood pressure 145/75 with a pulse of 72. Temperature 97.4. He is 95% on room air. General description is an elderly male up in the bed in no distress. Respiratory system: Unlabored breathing. Clear to auscultation anteriorly. Heart S1, S2. Regular rate and rhythm. Abdomen soft, no tenderness. The left leg is currently dressed up. No obvious drainage on the dressing. LABS: No new labs have been obtained today. DIAGNOSTIC IMPRESSION AND PLAN: Patient with left leg wound with secondary cellulitis. Culture with multiple pathogens, including strep MRSA and Klebsiella. All of them sensitive . Plan will be to finish therapy with oral Bactrim DS. Local care with Santyl and with close outpatient followup. Continue supportive care. MMODL / IJN: [id number] /
--- NOTE | 2018-06-01 02:51 | P.PN ---
Subjective Progress Note Date: 05/30/18 Principal diagnosis: Left lower extremity cellulitis Mr. Panchal is a 78-year-old male with a past medical history of coronary artery disease, hyperlipidemia, hypertension, [place], Pulmonary fibrosis coming to the hospital with a chief complaint of a nonhealing ulcer on his left foot. The patient states that he has the left foot ulcer for more than couple of years and he has been living with wound care clinic and also it seems to be healing but keeps coming back again. For the past 1 week patient states that his ulcer has been worsening and his pain has been progressively worsening that he had to come to the ER. On 05/29/18 - Today patient is sitting up in his bed appears to be in acute distress. Patient denies having any fevers chills or rigors. Pt states improvement in breathing and LE swelling. 05/30/2018 Patient denied any new complaints today. Cellulitis is improving. Patient is being continued on vancomycin. Ciprofloxacin was added due to culture report. ID is following. No cough or difficulty in breathing. No chest pain or palpitations. No abdominal pain nausea vomiting or diarrhea. No dysuria or hematuria. Patient's medications have been reviewed Objective - Vital Signs Vital signs: Vital Signs Temp 97.2 F L 05/30/18 11:58 Pulse 54 L 05/30/18 11:58 Resp 18 05/30/18 11:58 BP 142/86 05/30/18 11:58 Pulse Ox 94 L 05/30/18 04:58 Intake & Output 05/30/18 05/30/18 05/31/18 06:59 18:59 06:59 Intake Total 500 Output Total 1 Balance 500 -1 Intake: Intake, IV Titration 500 Amount Vancomycin 1,750 mg In 500 Sodium Chloride 0.9% 500 ml 500 ml @ 167 mls/hr IVPB Q16H [facility] Rx#: [id number] Output: Stool 1 Other: Voiding Method Toilet Toilet Urinal Urinal # Voids 3 1 # Bowel Movements 1 - Exam GEN. APPEARANCE: alert, in no apparent distress HEAD EXAM: atraumatic, normocephalic, normal inspection EYE EXAM: normal appearance, PERRL, EOMI. Absent: scleral icterus, conjunctival injection, periorbital swelling NECK EXAM: normal inspection. Absent: tenderness, meningismus, full ROM, lymphadenopathy RESPIRATORY EXAM: Bilateral breath sounds positive. Few crackles at the lower lung bases bilaterally CARDIOVASCULAR EXAM: S1 and S2 heard. No additional sounds. GI/ABDOMINAL EXAM: soft, normal bowel sounds. Absent: distended, tenderness, guarding, rebound, rigid EXTREMITIES EXAM: Right lower extremity within normal limits. Left lower extremity- an ulcer with slough on the lateral aspect of the left foot measuring 6-8 cm in length and also a small one on the medial aspect proximal to the ankle. NEUROLOGICAL EXAM: alert, oriented X3, no focal deficits - Labs CBC & Chem 7: 05/27/18 06:22 05/31/18 08:20 Labs: Microbiology - Last 24 Hours (Table) 05/26/18 15:35 Blood Culture - Preliminary Blood No Growth after 96 hours 05/28/18 00:29 Gram Stain - Final Ankle - Left Wound Culture - Final Methicillin resist S. aureus Strep agalactiae - (group b) 05/28/18 00:29 Gram Stain - Final Ankle - Left Wound Culture - Final Methicillin resist S. aureus Strep agalactiae - (group b) Klebsiella oxytoca Assessment and Plan Assessment: ASSESSMENT Left lower extremity cellulitis requiring IV antibiotics History of coronary artery disease Hypertension Hyperlipidemia Hard of hearing Pulmonary fibrosis Chronic left lower extremity nonhealing ulcer PLAN: Patient has been started on IV vancomycin for the nonhealing ulcer of his left lower extremity. ID Dr. Senior has been consulted- who recommends continuing the IV vancomycin until wound cultures are back.Cultures showing ? MRSA . Added ciprofloxacin due to Klebsiella. Patient has been resumed on his home medications. Further recommendations based on the clinical course. Time with Patient: Greater than 30
--- NOTE | 2018-06-01 02:52 | P.PN ---
Subjective Progress Note Date: 05/31/18 Principal diagnosis: Left lower extremity cellulitis Mr. Panchal is a 78-year-old male with a past medical history of coronary artery disease, hyperlipidemia, hypertension, [place], Pulmonary fibrosis coming to the hospital with a chief complaint of a nonhealing ulcer on his left foot. The patient states that he has the left foot ulcer for more than couple of years and he has been living with wound care clinic and also it seems to be healing but keeps coming back again. For the past 1 week patient states that his ulcer has been worsening and his pain has been progressively worsening that he had to come to the ER. On 05/29/18 - Today patient is sitting up in his bed appears to be in acute distress. Patient denies having any fevers chills or rigors. Pt states improvement in breathing and LE swelling. 05/30/2018 Patient denied any new complaints today. Cellulitis is improving. Patient is being continued on vancomycin. Ciprofloxacin was added due to culture report. ID is following. 05/31/2018 Patient denied any new complaints today. Left lower extremity Cellulitis is improving. Patient is being continued on vancomycin and ciprofloxacin. ID recommends 1-2 days of IV antibiotic therapy. Otherwise no acute overnight issues. No cough or difficulty in breathing. No chest pain or palpitations. No abdominal pain nausea vomiting or diarrhea. No dysuria or hematuria. Patient's medications have been reviewed Objective - Vital Signs Vital signs: Vital Signs Temp 97.4 F L 05/31/18 21:00 Pulse 72 05/31/18 21:00 Resp 16 05/31/18 21:00 BP 145/75 05/31/18 21:00 Pulse Ox 95 05/31/18 21:00 Intake & Output 05/31/18 05/31/18 06/01/18 06:59 18:59 06:59 Intake Total 1040 360 Output Total 1 300 Balance 1040 359 -300 Intake: Intake, IV Titration 1040 Amount Sodium Chloride 0.9% 1, 540 000 ml @ 60 mls/hr IV . [id number] [facility] Rx#:[id number] Vancomycin 1,750 mg In 500 Sodium Chloride 0.9% 500 ml 500 ml @ 167 mls/hr IVPB Q16H [facility] Rx#: [id number] Oral 360 Output: Urine 300 Stool 1 Other: Voiding Method Toilet Toilet Toilet Urinal Urinal # Voids 3 4 # Bowel Movements 1 - Exam GEN. APPEARANCE: alert, in no apparent distress HEAD EXAM: atraumatic, normocephalic, normal inspection EYE EXAM: normal appearance, PERRL, EOMI. Absent: scleral icterus, conjunctival injection, periorbital swelling NECK EXAM: normal inspection. Absent: tenderness, meningismus, full ROM, lymphadenopathy RESPIRATORY EXAM: Bilateral breath sounds positive. Few crackles at the lower lung bases bilaterally CARDIOVASCULAR EXAM: S1 and S2 heard. No additional sounds. GI/ABDOMINAL EXAM: soft, normal bowel sounds. Absent: distended, tenderness, guarding, rebound, rigid EXTREMITIES EXAM: Right lower extremity within normal limits. Left lower extremity- an ulcer with slough on the lateral aspect of the left foot measuring 6-8 cm in length and also a small one on the medial aspect proximal to the ankle. NEUROLOGICAL EXAM: alert, oriented X3, no focal deficits - Labs CBC & Chem 7: 05/27/18 06:22 05/31/18 08:20 Labs: Abnormal Lab Results - Last 24 Hours (Table) 05/31/18 Range/Units 08:20 Glucose 152 H (74-99) mg/dL Microbiology - Last 24 Hours (Table) 05/26/18 15:35 Blood Culture - Preliminary Blood No Growth after 120 hours 05/28/18 00:29 Gram Stain - Final Ankle - Left Wound Culture - Final Methicillin resist S. aureus Strep agalactiae - (group b) Assessment and Plan Assessment: ASSESSMENT Left lower extremity cellulitis requiring IV antibiotics History of coronary artery disease Hypertension Hyperlipidemia Hard of hearing Pulmonary fibrosis Chronic left lower extremity nonhealing ulcer PLAN: Patient has been started on IV vancomycin for the nonhealing ulcer of his left lower extremity. ID Dr. Senior has been consulted- who recommends continuing the IV vancomycin until wound cultures are back.Cultures showing ? MRSA . Added ciprofloxacin due to Klebsiella. Patient has been resumed on his home medications. Further recommendations based on the clinical course.
[2018-06-01] MEDS: VANCOMYCIN 1,750 MG in SODIUM CHLORIDE 0.9% 500 ML 500 ML IVPB SCH (07:58)
[2018-06-01] MEDS: CIPROFLOXACIN HCL 500 MG TAB PO SCH (07:59)
[2018-06-01] MEDS: ENOXAPARIN 40 MG/0.4 ML SYRINGE SQ SCH (07:59)
[2018-06-01] MEDS: GABAPENTIN 300 MG CAP PO SCH (08:00)
[2018-06-01] MEDS: METOPROLOL TARTRATE 50 MG TAB PO SCH (08:00)
[2018-06-01] MEDS: SODIUM CHLORIDE 0.9% 1,000 ML IV SCH (08:01)
[2018-06-01] MEDS: COLLAGENASE 250 UNIT/GM OINTMENT 30 GM TUBE TOPICAL SCH (09:59)
[2018-06-01 12:12] VITALS: BP 165/79; PULSE 53; TEMP 97.9
--- NOTE | 2018-06-01 15:13 | PN ---
PROGRESS NOTE DATE OF SERVICE: 06/01/2018 REASON FOR FOLLOWUP: Left leg wound with secondary cellulitis MRSA. INTERVAL HISTORY: The patient was seen on rounds early this afternoon. The patient has been afebrile. He is breathing comfortably. Denies having any chest pain, shortness of breath, cough, no abdominal pain, or any worsening pain to the left leg area. PHYSICAL EXAMINATION: Blood pressure 165/79 with a pulse of 53 temperature 97.9 he is 95% on room air. General description is an elderly male, lying in bed in no distress. RESPIRATORY SYSTEM: Unlabored breathing, clear to auscultation anteriorly. HEART: S1, S2. Regular rate and rhythm. ABDOMEN: Soft, no tenderness. Left leg wound with minimal stiffness. Soft tissue surrounding redness has improved. LABS: BUN of 17, creatinine 1.0. DIAGNOSTIC IMPRESSION AND PLAN: Patient with left leg wound with secondary cellulitis, culture with methicillin- resistant Staphylococcus aureus and Klebsiella. Patient to finish therapy with oral Bactrim DS 1 b.i.d. for 10 days local to continue with Cristianyl. Will follow up in the office in 1 week. Continue supportive care. MMODL / IJN: [id number] /
== END 2018-06-01 13:28 | disposition home health service (06) | DRG 593 ==
LOC: EC 13:58 → 5MS5E 17:06 → 3NMEDONC 05-27 12:24 → 5MS5E 05-27 12:24 → 3NMEDONC 05-30 11:02
PROVIDERS: ADMIT Internal Medicine; ATTEND Internal Medicine
DX: L97.529 Non-pressure chronic ulcer of other part of left foot with unspecified severity (principal); L03.116 Cellulitis of left lower limb; E78.5 Hyperlipidemia, unspecified; H91.90 Unspecified hearing loss, unspecified ear; I10 Essential (primary) hypertension; I25.10 Atherosclerotic heart disease of native coronary artery without angina pectoris; J84.10 Pulmonary fibrosis, unspecified; L42 Pityriasis rosea; Z96.641 Presence of right artificial hip joint; B96.1 Klebsiella pneumoniae [K. pneumoniae] as the cause of diseases classified elsewhere; B95.62 Methicillin resistant Staphylococcus aureus infection as the cause of diseases classified elsewhere; Z80.9 Family history of malignant neoplasm, unspecified; Z83.3 Family history of diabetes mellitus; Z86.14 Personal history of Methicillin resistant Staphylococcus aureus infection; Z86.73 Personal history of transient ischemic attack (TIA), and cerebral infarction without residual deficits; Z87.891 Personal history of nicotine dependence; I25.2 Old myocardial infarction; Z79.1 Long term (current) use of non-steroidal anti-inflammatories (NSAID); Z79.82 Long term (current) use of aspirin; Z79.891 Long term (current) use of opiate analgesic; Z79.899 Other long term (current) drug therapy
CPT/HCPCS: 36415; 80048; 80053; 80202; 83605; 85025; 86140; 87040; 87070; 87077; 87186; 87205; 96365; 96366; 99284

== ENCOUNTER → 2018-12-10 | Outpatient (CLI) | payer MEDICARE, OTHER ==
--- NOTE | 2018-12-10 10:07 | US ---
Exam: Ultrasound venous Doppler duplex lower extremity left, LOWER EXTREMITY VENOUS INSUFFICIENCY DATE: 12/10/2018. HISTORY: 78 year-old male right leg pain, left leg pain FINDINGS: SIDE PERFORMED: Left Patient has extensive swelling from pop fossa and inferior. 1) Color flow is present and patency is documented in the following vessels. No DVT or SVT is noted . EIV Common Femoral Vein Deep Femoral Vein Femoral Vein Popliteal Vein Proximal Calf Veins, patent color flow but too small to doppler Greater Saph Vein Upper Small Saph Vein 2) There is venous reflux noted at the following venous levels: Left: mild reflux seen at EIV, CFV, FV and SSV IMPRESSION: No evidence for DVT within the left lower extremity imaged from the groin to the upper calf. Mild ean ous reflux in the left lower extremity as above.
--- NOTE | 2018-12-12 10:10 | P.ARTDOP ---
Arterial Doppler LOWER EXTREMITY ARTERIAL DOPPLER: DATE OF SERVICE: 12/10/2018 Reason for study: Right leg pain. Doppler waveforms: Multiphasic bilaterally throughout. Pulse volume recording: []. Pressure gradients: None. Ankle-brachial indices: Greater than 1 bilaterally. Toe pressures: 118 on the right, 69 on the left Impression: Normal study.
== END ==
LOC: RADUSWWP 08:10
PROVIDERS: ATTEND Internal Medicine Infectious Disease
DX: I87.2 Venous insufficiency (chronic) (peripheral) (principal)
CPT/HCPCS: 93923

== ENCOUNTER 2019-01-15 10:20 | Observation (INO) | payer MEDICARE, OTHER ==
[2019-01-15] MEDS ORDERED: SODIUM CHLORIDE 0.9% 500 ML 500 ML IV SCH (10:45)
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
[2019-01-15 11:50] LABS: Calcium 9.3 mg/dL (8.4-10.2); Potassium 4.5 mmol/L (3.5-5.1); Total Bilirubin 0.5 mg/dL (0.2-1.3); Total Protein 6.9 g/dL (6.3-8.2)
[2019-01-15 11:51] LABS: Basophils # (A) 0.1 k/uL (0-0.2); Basophils % (A) 1 %; Eosinophils # (A) 0.4 k/uL (0-0.7); Eosinophils % (A) 6 %; HCT 35.8 % (39.0-53.0); HGB 11.1 gm/dL (13.0-17.5); Hypochromasia Slight; Lymphocytes # (A) 1.5 k/uL (1.0-4.8); Lymphocytes % (A) 20 %; MCH 25.5 pg (25.0-35.0); MCHC 30.9 g/dL (31.0-37.0); MCV 82.3 fL (80.0-100.0); Monocytes # (A) 0.5 k/uL (0-1.0); Monocytes % (A) 7 %; Neutrophils # (A) 4.7 k/uL (1.3-7.7); Neutrophils % (A) 65 %; Platelet Count 284 k/uL (150-450); RBC 4.35 m/uL (4.30-5.90); RDW 14.4 % (11.5-15.5); WBC 7.1 k/uL (3.8-10.6)
--- NOTE | 2019-01-15 11:53 | XR ---
EXAMINATION TYPE: XR tibia fibula LT DATE OF EXAM: 01/15/2019 CLINICAL HISTORY: Lower chimney pain and open wounds TECHNIQUE: Two views of the left leg are obtained. 3 views of the left foot were obtained. COMPARISON: None. FINDINGS: There is no acute fracture or dislocation seen in the left tibia, fibula normal left foot. The left knee and ankle joints appear aligned. The overlying soft tissue appears unremarkable. The re is no specific periosteal reaction of the posterior distal tibial metaphysis. Distal soft tissue s welling over the metaphysis of the tibia and fibula and ankle are noted. No radiopaque foreign body i s seen. Very small tibiotalar joint effusion is present. Small plantar heel spur is seen. There is di ffuse osseous demineralization. No subcutaneous emphysema. No focal erosion of the left foot. Flexion deformities of the toes limit evaluation although there appears to be moderate arthropathy of the fo refoot. IMPRESSION: 1. No acute fracture or dislocation of the left tibia, fibula, or left foot. 2. Multifocal soft tissue swelling of the distal left lower extremity and ankle and nonspecific perio steal reaction of the posterior distal tibial metaphysis. No cortical erosions. Diffuse osseous demin eralization. .
[2019-01-15 11:54] LABS: INR 0.9 (<1.2); Prothrombin Time 9.9 sec (9.0-12.0)
[2019-01-15] MEDS ORDERED: NALOXONE 0.4 MG/ML 1 ML VIAL IV PRN (12:46)
[2019-01-15] MEDS ORDERED: HYDROmorphone 0.5 MG/0.5 ML SYRINGE IVP PRN (12:46)
[2019-01-15] MEDS ORDERED: ACETAMINOPHEN TAB 325 MG TAB PO PRN (12:46)
[2019-01-15] MEDS: SODIUM CHLORIDE 0.9% 1,000 ML IV SCH (12:53)
[2019-01-15] MEDS ORDERED: VANCOMYCIN IV PER PHARMACY 1 EACH MISC MISCELLANE PRN (13:58)
[2019-01-15] MEDS ORDERED: VANCOMYCIN 2,000 MG in SODIUM CHLORIDE 0.9% 500 ML 500 ML IVPB ONE (15:00)
[2019-01-15] MEDS: SILVER GEL 44.4 APPLIC/44.4 ML TUBE TOPICAL SCH (18:28)
[2019-01-15] MEDS ORDERED: ONDANSETRON 4 MG/2 ML VIAL IVP STA (18:37)
[2019-01-15] MEDS ORDERED: diphenhydrAMINE 50 MG/ML 1 ML VIAL IVP STA (18:37)
[2019-01-15] MEDS ORDERED: NITROGLYCERIN SL TABS 0.4 MG TAB SUBLINGUAL PRN (22:01)
[2019-01-15] MEDS ORDERED: IBUPROFEN 400 MG TAB PO PRN (22:01)
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
[2019-01-15] MEDS: traZODone HCL 100 MG TAB PO SCH (22:53)
[2019-01-15] MEDS: GABAPENTIN 300 MG CAP PO SCH (22:53)
[2019-01-15] MEDS: METOPROLOL TARTRATE 50 MG TAB PO SCH (22:53)
[2019-01-15] MEDS: ATORVASTATIN 40 MG TAB PO SCH (22:53)
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
[2019-01-16] MEDS: HYDROcodone/APAP 10-325MG 1 EACH TAB PO PRN ×2 (00:54→17:31)
[2019-01-16] MEDS: SODIUM CHLORIDE 0.9% 1,000 ML IV SCH ×2 (04:52→16:05)
[2019-01-16] MEDS: VANCOMYCIN 1,750 MG in SODIUM CHLORIDE 0.9% 500 ML 500 ML IVPB SCH ×3 (05:27→23:09)
[2019-01-16] MEDS: GABAPENTIN 300 MG CAP PO SCH ×3 (07:23→22:29)
[2019-01-16] MEDS: ASPIRIN 81 MG PO SCH (07:23)
[2019-01-16] MEDS: FUROSEMIDE 40 MG TAB PO SCH (07:23)
[2019-01-16] MEDS: TAMSULOSIN 0.4 MG CAP.ER.24H PO SCH (07:23)
[2019-01-16] MEDS: PANTOPRAZOLE 40 MG TABLET PO SCH (07:23)
[2019-01-16] MEDS: METOPROLOL TARTRATE 50 MG TAB PO SCH ×2 (07:24→22:29)
[2019-01-16] MEDS: SILVER GEL 44.4 APPLIC/44.4 ML TUBE TOPICAL SCH (07:26)
[2019-01-16 15:46] VITALS: BMI 29.0
[2019-01-16] MEDS: traZODone HCL 100 MG TAB PO SCH (22:29)
[2019-01-16] MEDS: ATORVASTATIN 40 MG TAB PO SCH (22:29)
[2019-01-17] MEDS: HYDROcodone/APAP 10-325MG 1 EACH TAB PO PRN ×3 (03:46→20:27)
[2019-01-17] MEDS: SODIUM CHLORIDE 0.9% 1,000 ML IV SCH ×2 (06:11→20:37)
--- NOTE | 2019-01-17 06:39 | PN ---
PROGRESS NOTE DATE OF SERVICE: 01/16/2019 PRESENTING COMPLAINT: Left foot wound. INTERVAL HISTORY: This patient presented with left foot wound from underlying peripheral arterial disease. Wound care is per Dr. De La Paz. The patient is sitting up in a chair. Did tolerate a diet. The patient's daughter is visiting. REVIEW OF SYSTEMS: Done for constitutional, cardiovascular, GI, pulmonary; relevant findings as above. CURRENT MEDICATIONS: Current medications are reviewed that include IV ceftriaxone and vancomycin. PHYSICAL EXAMINATION: On examination, temperature 98.6, pulse 71, respiration 20, blood pressure 104/50, pulse ox 97% on 2 L. GENERAL APPEARANCE: Sitting up, awake. EYES: Pupils equal. Conjunctivae normal. NECK: JVD not raised. Mass not palpable. RESPIRATORY: Effort normal. LUNGS: Decreased breath sounds. CARDIOVASCULAR: First and second sounds normal. No edema. ABDOMEN: Soft, nontender. Liver and spleen not palpable. PSYCHIATRY: Alert and oriented x3. Mood and affect normal. Left foot in a dressing and Pardeep wrap. INVESTIGATIONS: No blood work from today. Wound is growing presumptive MRSA. ASSESSMENT: 1. Acute on chronic left foot wound and ulcers from peripheral arterial disease with initial cultures growing presumptive methicillin-resistant Staphylococcus aureus. 2. Coronary artery disease, prior history of stent. 3. Chronic obstructive pulmonary disease in an ex-smoker. 4. Chronic pulmonary fibrosis. 5. Hyperlipidemia. 6. Essential hypertension. 7. Peripheral neuropathy, idiopathic. 8. Chronic gait dysfunction, uses a walker. PLAN: Continue current medication and treatment plan. Check labs in the morning. Wound care to continue per Dr. De La Paz. We will also consult Vascular Surgery to see if anything can be done to improve his vascular status. MMODL / IJN: [id number] /
[2019-01-17] MEDS: PANTOPRAZOLE 40 MG TABLET PO SCH (07:39)
[2019-01-17] MEDS: METOPROLOL TARTRATE 50 MG TAB PO SCH ×2 (07:39→20:28)
[2019-01-17] MEDS: ASPIRIN 81 MG PO SCH (07:40)
[2019-01-17] MEDS: FUROSEMIDE 40 MG TAB PO SCH (07:40)
[2019-01-17] MEDS: GABAPENTIN 300 MG CAP PO SCH ×3 (07:40→20:29)
[2019-01-17] MEDS: TAMSULOSIN 0.4 MG CAP.ER.24H PO SCH (07:40)
[2019-01-17] MEDS: SILVER GEL 44.4 APPLIC/44.4 ML TUBE TOPICAL SCH (07:41)
[2019-01-17 09:03] LABS: Basophils # (A) 0.1 k/uL (0-0.2); Basophils % (A) 1 %; Eosinophils # (A) 0.5 k/uL (0-0.7); Eosinophils % (A) 8 %; HCT 35.4 % (39.0-53.0); HGB 10.5 gm/dL (13.0-17.5); Hypochromasia Marked; Lymphocytes # (A) 1.5 k/uL (1.0-4.8); Lymphocytes % (A) 21 %; MCH 25.5 pg (25.0-35.0); MCHC 29.8 g/dL (31.0-37.0); MCV 85.6 fL (80.0-100.0); Mean Platelet Volume 7.9; Monocytes # (A) 0.4 k/uL (0-1.0); Monocytes % (A) 6 %; Neutrophils # (A) 4.5 k/uL (1.3-7.7); Neutrophils % (A) 62 %; Platelet Count 236 k/uL (150-450); RBC 4.13 m/uL (4.30-5.90); RDW 14.2 % (11.5-15.5); WBC 7.1 k/uL (3.8-10.6)
[2019-01-17 09:12] LABS: Calcium 9.1 mg/dL (8.4-10.2); Potassium 4.9 mmol/L (3.5-5.1)
[2019-01-17] MEDS: traZODone HCL 100 MG TAB PO SCH (20:28)
[2019-01-17] MEDS: ATORVASTATIN 40 MG TAB PO SCH (20:28)
--- NOTE | 2019-01-17 23:59 | PN ---
PROGRESS NOTE DATE OF SERVICE: 01/17/2019 PRESENTING COMPLAINT: Left foot wound. INTERVAL HISTORY: This patient presents with acute left foot wound from underlying peripheral artery disease. Pain is controlled. Wound care to continue per Dr. De La Paz. Otherwise, tolerating a diet. No new issues. Daughter is visiting. REVIEW OF SYSTEMS: Done for constitutional, cardiovascular, GI and pulmonary, musculoskeletal: Relevant findings as above. CURRENT MEDICATIONS: Reviewed that include IV ceftriaxone. PHYSICAL EXAMINATION: Temperature 98.2, pulse 54, respiration 20, blood pressure 130/71, pulse ox 93 percent on room air. GENERAL: He was sitting up, comfortable. EYES pupils normal. Conjunctivae normal. NECK JVD not raised. Mass not palpable. RESPIRATORY effort normal. LUNGS: Decreased breath sounds. CARDIOVASCULAR: First and seconds normal. No edema. ABDOMEN: Soft, nontender. Liver and spleen not palpable. PSYCHIATRY: Alert and oriented x3. Mood and affect normal. INVESTIGATIONS: White count 7.1, hemoglobin 10.5, potassium 4.9, BUN 21, creatinine is 0.97. Wound cultures suggestive for MRSA. ASSESSMENT: 1. Acute on chronic left foot wound ulcer from peripheral artery disease with initial cultures growing presumptive MRSA. 2. Coronary artery prior history of stent. 3. Chronic obstructive pulmonary disease in an ex-smoker. 4. Chronic pulmonary fibrosis. 5. Hyperlipidemia. 6. Essential hypertension. 7. Peripheral neuropathy idiopathic. 8. Chronic gait dysfunction uses a walker. PLAN: Continue current medication and treatment plan. Antibiotics will be coordinated by Dr. De La Paz. We will wait opinion by Dr. Parks. MMODL / IJN: [id number] /
[2019-01-18 06:05] VITALS: BP 130/71; PULSE 58; RESP 20; TEMP 98.5
[2019-01-18] MEDS: GABAPENTIN 300 MG CAP PO SCH (07:58)
[2019-01-18] MEDS: FUROSEMIDE 40 MG TAB PO SCH (07:58)
[2019-01-18] MEDS: TAMSULOSIN 0.4 MG CAP.ER.24H PO SCH (07:59)
[2019-01-18] MEDS: METOPROLOL TARTRATE 50 MG TAB PO SCH (07:59)
[2019-01-18] MEDS: PANTOPRAZOLE 40 MG TABLET PO SCH (07:59)
[2019-01-18] MEDS: ASPIRIN 81 MG PO SCH (07:59)
[2019-01-18] MEDS: SILVER GEL 44.4 APPLIC/44.4 ML TUBE TOPICAL SCH (08:00)
[2019-01-18] MEDS: SODIUM CHLORIDE 0.9% 1,000 ML IV SCH (08:00)
[2019-01-18 10:24] LABS: Calcium 9.9 mg/dL (8.4-10.2); Potassium 4.8 mmol/L (3.5-5.1)
[2019-01-18] MEDS: HYDROcodone/APAP 10-325MG 1 EACH TAB PO PRN (11:41)
--- NOTE | 2019-01-24 19:31 | DS ---
DISCHARGE SUMMARY DATE OF ADMISSION: January 15, 2019. DATE OF DISCHARGE: January 18, 2019. FINAL DIAGNOSES: 1. Acute on chronic left foot wound ulcer from peripheral artery disease with initial cultures growing possible MRSA. 2. Coronary artery disease, history of stent. 3. Chronic obstructive pulmonary disease in an ex-smoker. 4. Chronic pulmonary fibrosis. 5. Hyperlipidemia. 6. Essential hypertension. 7. Peripheral neuropathy idiopathic. 8. Chronic gait dysfunction uses a walker. HOSPITAL COURSE: A 78-year-old patient follows with [facility] with multiple medical problems. Does go to the Wound Care Center, has wounds on the left lower extremity that started getting worse and started draining. Wound was managed by Dr. De La Paz. Cultures finally came back showing MRSA and Alcaligenes faecalis. The patient is doing better by the time of discharge. Keen to go home. CONSULTATION: Dr. Demetris De La Paz from [place]. PHYSICAL EXAMINATION: Temperature 98.5, pulse 58, respiration 20, blood pressure 130/71, pulse ox 96 percent on room air. Lungs decreased breath sounds. Wound of the left lower extremity. INVESTIGATIONS: White count 7.1, hemoglobin 10.5, BUN 23, creatinine 1.03. DISCHARGE MEDICATIONS: 1. Nitrostat 0.4 sublingual q.5 p.r.n. 2. Omeprazole 40 mg daily. 3. Aspirin 81 mg p.o. daily. 4. Lipitor 40 mg at bedtime. 5. Lopressor 50 mg b.i.d. 6. Trazodone 150 mg q.h.s. 7. Lasix 40 mg p.o. daily. 8. Gabapentin 600 mg t.i.d. 9. [place] 10 1 tablet t.i.d. p.r.n. 10.Flomax 0.4 mg p.o. daily. 11.Tylenol 1000 mg q.6 p.r.n. 12.Motrin 400 mg q.6 p.r.n. 13.Bactrim DS 1 tablet p.o. q.12. Local wound care per Dr. De La Paz. Follow up with Dr. De La Paz in 1 week. Follow up with Dr. [facility] on January 22, 2019. Aquacel AG gel daily to left lower leg dressing. Copy to visiting physician Dr. Fuller. MMODL / IJN: [id number] /
== END 2019-01-18 14:25 | disposition home health service (06) ==
LOC: EC 10:20 → UNDOADMOB 12:42 → 4MS4W 12:42 → INTOOBSV 01-17 18:39 → OBSVTOIN 01-17 18:39 → UNDODISOB 01-18 14:25
PROVIDERS: ADMIT Hospitalist; ATTEND Hospitalist
DX: L97.829 Non-pressure chronic ulcer of other part of left lower leg with unspecified severity (principal); L97.529 Non-pressure chronic ulcer of other part of left foot with unspecified severity; L08.9 Local infection of the skin and subcutaneous tissue, unspecified; I73.9 Peripheral vascular disease, unspecified; I10 Essential (primary) hypertension; J84.10 Pulmonary fibrosis, unspecified; J44.9 Chronic obstructive pulmonary disease, unspecified; I25.10 Atherosclerotic heart disease of native coronary artery without angina pectoris; G62.9 Polyneuropathy, unspecified; E78.5 Hyperlipidemia, unspecified; N42.9 Disorder of prostate, unspecified; R26.9 Unspecified abnormalities of gait and mobility; Z79.82 Long term (current) use of aspirin; Z79.84 Long term (current) use of oral hypoglycemic drugs; Z79.1 Long term (current) use of non-steroidal anti-inflammatories (NSAID); Z79.899 Other long term (current) drug therapy; Z88.1 Allergy status to other antibiotic agents; Z86.73 Personal history of transient ischemic attack (TIA), and cerebral infarction without residual deficits; I25.2 Old myocardial infarction; Z86.718 Personal history of other venous thrombosis and embolism; Z86.14 Personal history of Methicillin resistant Staphylococcus aureus infection; Z95.5 Presence of coronary angioplasty implant and graft; Z96.641 Presence of right artificial hip joint; Z87.828 Personal history of other (healed) physical injury and trauma; Z83.3 Family history of diabetes mellitus; Z80.9 Family history of malignant neoplasm, unspecified
CPT/HCPCS: 96361 ×3; 96366 ×3; 96367; 96375 ×2; 96365; 99285; 36415; 80053; 80048 ×2; 83605; 85025 ×2; 85610; 85730; 87040; 87070; 87205; 87077; 87186; 73590; 73630; G0378 ×4; J3370; J1200; J2405; J0696 ×4; J1170

== ENCOUNTER 2019-02-08 11:06 | Observation (INO) | payer MEDICARE, OTHER ==
[2019-02-08] MEDS ORDERED: SODIUM CHLORIDE 0.9% 500 ML 500 ML IV STA (11:51)
[2019-02-08] MEDS ORDERED: SODIUM CHLORIDE 0.9% 1,000 ML IV STA (11:51)
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
[2019-02-08 12:36] LABS: Basophils % (A) 1 %; Eosinophils # (A) 0.5 k/uL (0-0.7); Eosinophils % (A) 6 %; HCT 38.8 % (39.0-53.0); HGB 11.9 gm/dL (13.0-17.5); Lymphocytes # (A) 1.5 k/uL (1.0-4.8); Lymphocytes % (A) 20 %; MCH 25.9 pg (25.0-35.0); MCHC 30.7 g/dL (31.0-37.0); MCV 84.3 fL (80.0-100.0); Mean Platelet Volume 8.9; Monocytes # (A) 0.4 k/uL (0-1.0); Monocytes % (A) 5 %; Neutrophils % (A) 66 %; Platelet Count 312 k/uL (150-450); RDW 14.6 % (11.5-15.5); WBC 7.6 k/uL (3.8-10.6)
[2019-02-08 12:47] LABS: INR 0.9 (<1.2); Prothrombin Time 10.1 sec (9.0-12.0)
--- NOTE | 2019-02-08 12:52 | XR ---
EXAMINATION TYPE: XR chest 2V DATE OF EXAM: 02/08/2019 COMPARISON: 12/15/2017 HISTORY: 78-year-old male with weakness TECHNIQUE: AP and lateral views FINDINGS: Heart upper limits of normal in size. Mild patchy density throughout the peripheral mid and lower farooq gs redemonstrated. No sizable pleural effusion. IMPRESSION: Similar patchy and interstitial peripheral mid and lower lung densities. Some differential considerat ions include underlying chronic fibrosis, NSIP, SUPERVISORY HISTORIAN, eosinophilic pneumonia, and atypical infections. Clinically correlate.
[2019-02-08 12:53] LABS: Albumin 4.5 g/dL (3.5-5.0); Potassium 4.2 mmol/L (3.5-5.1); Total Bilirubin 0.2 mg/dL (0.2-1.3); Total Protein 7.5 g/dL (6.3-8.2)
--- NOTE | 2019-02-08 12:55 | CT ---
EXAMINATION TYPE: CT brain wo con DATE OF EXAM: 02/08/2019 COMPARISON: March 20, 2018 HISTORY: Rt sided weakness CT DLP: 1099.[address] of the brain was performed. The ventricles, basal cisterns and sulci overlying the cerebral convexities demonstrate mild enlargem ent. There is no evidence for intracranial hemorrhage or sulcal effacement. There is decreased attenuation about the periventricular white matter and deep white matter of both c erebral hemispheres, compatible with chronic small vessel ischemia. Differential diagnosis does inclu de demyelination. No mass effects are seen.No midline shift. Osseous calvarium is intact. If symptoms persist consider MRI. IMPRESSION: 1. Age related atrophic and chronic small vessel ischemic change without acute intracranial process s een at this time.
[2019-02-08] MEDS ORDERED: ASPIRIN 325 MG TAB PO STA (13:24)
[2019-02-08] MEDS ORDERED: ACETAMINOPHEN TAB 325 MG TAB PO PRN (13:25)
[2019-02-08] MEDS ORDERED: NALOXONE 0.4 MG/ML 1 ML VIAL IV PRN (13:25)
[2019-02-08] MEDS ORDERED: ERGOCALCIFEROL 50,000 UNIT CAP PO SCH (13:30)
[2019-02-08 13:43] LABS: Appearance,Urine Clear (Clear); Bilirubin,Urine Negative (Negative); Blood,Urine Negative (Negative); Color,Urine Light Yellow; Glucose,Urine (UA) Negative (Negative); Ketones,Urine Negative (Negative); Leukocyte Esterase,Urine Negative (Negative); Nitrite,Urine Negative (Negative); Protein,Urine Negative (Negative); Specific Gravity,Urine 1.012 (1.001-1.035); Urobilinogen,Urine <2.0 mg/dL (<2.0)
[2019-02-08] MEDS ORDERED: 0.9% NACL WITH KCL 20 MEQ/L 1,000 ML IV SCH (15:00)
[2019-02-08] MEDS ORDERED: SODIUM CHLORIDE 0.9% 1,000 ML IV SCH (15:00)
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
--- NOTE | 2019-02-08 20:14 | CT ---
EXAMINATION TYPE: CT angio head neck with contrast and with 3-D reconstruction renderings DATE OF EXAM: 02/08/2019 HISTORY: CVA. COMPARISON: CT 02/08/2019 at 12:[address] DLP: 455.7 mGycm. Automated Exposure Control for Dose Reduction was Utilized. TECHNIQUE: CTA scan of the neck is performed with IV Contrast, patient injected with 50ml mL of Isov ue 370, axial images are obtained, coronal and sagittal reformatted images are reviewed. Three-D addis nstructed images are created on an independent workstation and reviewed. FINDINGS: The bilateral carotid arterial systems are bilaterally tortuous, and significant for hemod ynamically significant stenosis involving the proximal right ICA. There are no other hemodynamically significant stenoses. The intracranial anterior circulation is widely patent and without focal stenos is or aneurysm. 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 The left vertebral artery appears to terminate as the left PICA, congenital variant scarlett orion. The intracranial posterior circulation is patent, negative for focal stenosis or aneurysm. The venous structures within the neck and the dural venous sinuses are widely patent. No incidental soft tissue neck findings or incidental intracranial/intraspinal findings. IMPRESSION: Moderate-plus CHUNG origin stenosis noted.
[2019-02-08 23:34] VITALS: RESP 18
[2019-02-08] MEDS: HYDROcodone/APAP 10-325MG 1 EACH TAB PO PRN (23:49)
[2019-02-09] MEDS ORDERED: ERGOCALCIFEROL 50,000 UNIT CAP PO SCH (00:24)
[2019-02-09 04:39] LABS: Cholesterol 101 mg/dL (<200); HDL Cholesterol 34 mg/dL (40-60); LDL Cholesterol,Calculated 41 mg/dL (0-99); Triglycerides 129 mg/dL (<150)
[2019-02-09] MEDS: ALBUTEROL NEBULIZED 2.5 MG/3 ML INHALATION SCH ×4 (04:58→19:17)
[2019-02-09] MEDS: ATORVASTATIN 40 MG TAB PO SCH ×2 (06:55→21:18)
[2019-02-09] MEDS: METOPROLOL TARTRATE 50 MG TAB PO SCH ×3 (06:55→21:18)
[2019-02-09] MEDS: GABAPENTIN 300 MG CAP PO SCH ×4 (06:55→21:18)
[2019-02-09] MEDS: traZODone HCL 50 MG TAB PO SCH ×2 (06:56→21:17)
[2019-02-09] MEDS: NINTEDANIB ESYLATE 150 MG PO SCH ×2 (07:12→07:13)
[2019-02-09] MEDS ORDERED: FAMOTIDINE 20 MG TAB PO SCH (09:00)
[2019-02-09] MEDS ORDERED: FUROSEMIDE 40 MG TAB PO SCH (09:00)
[2019-02-09] MEDS: CYANOCOBALAMIN 500 MCG TAB PO SCH (09:02)
[2019-02-09] MEDS: HYDROcodone/APAP 10-325MG 1 EACH TAB PO PRN ×2 (09:03→17:04)
[2019-02-09] MEDS: TAMSULOSIN 0.4 MG CAP.ER.24H PO SCH (09:03)
[2019-02-09] MEDS: ASPIRIN 81 MG PO SCH (09:03)
--- NOTE | 2019-02-09 14:05 | MR ---
EXAMINATION TYPE: MR brain wo con DATE OF EXAM: 02/09/2019 1:50 PM. COMPARISON: NONE. HISTORY: Right sided weakness. Technique: Multiplanar, multiecho imaging of the brain was obtained without intravenous contrast. FINDINGS: There is a partially empty sella. Midline structures are otherwise unremarkable. There is a normal craniocervical junction. Echoplanar diffusion imaging is normal. There are normal vascular flow voids. The orbits are normal. There is no evidence of a CP angle mass lesion. There is no acute focal lesion, mass effect or midline shift identified. I do not see evidence of int racranial blood. A 2 mm high signal lesion is noted in the FLAIR dataset but not noticed any other se quence. I'm uncertain the etiology and significance of this. There is a 1 cm retention cyst or polyp involving the anterior aspect of the right sphenoid sinus. IMPRESSION: 1. NO ACUTE INTRACRANIAL ABNORMALITY. 2. PARTIALLY EMPTY SELLA. 3. RETENTION CYST OR POLYP IN THE ANTERIOR ASPECT OF THE RIGHT SPHENOID SINUS.
[2019-02-09] MEDS: LACTATED RINGERS 1,000 ML IV SCH (15:30)
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
--- NOTE | 2019-02-09 18:08 | CONS ---
CONSULTATION This is a 78-year-old gentleman known to me from the past from the office. The patient presented with history of TIA affecting right arm with complete recovery and some facial numbness. According to the patient, this lasted for a short time, then patient has been admitted. No history of amaurosis fugax. No history of diplopia. No history of dysphagia. The patient had a stroke workup including a CT of the head, which was age-related small-vessel disease. The patient had MRI and no acute focal lesion seen. CT of the neck showed right side has stenosis. Left side has no significant stenosis. PAST MEDICAL HISTORY: History of coronary artery disease, history of COPD, TIA in the past, history of deep vein thrombosis, history of hypertension, history of myocardial infarction. PHYSICAL EXAMINATION: Patient was seen in his room. He is sitting. His vital signs stable. The patient has neck no bruit appreciated. Chest has a few crackles at the lung bases. ABDOMEN: Soft. Femorals are present. Patient has a very strong motor function of the right and left lower extremity. IMPRESSION: History of transient ischemic attack affecting right arm with complete recovery. Patient was seen by Neurology, started on antiplatelet therapy and statin therapy. The patient is scheduled to have control of the blood pressure and stroke education has been given by the Neurology. We will follow with you. At this point, left carotid has no hemodynamically significant stenosis. Right side has some stenosis. We will discuss with Internal Medicine. We will follow with you. The patient also has a history of chronic wound of the left lower extremity under care of Dr. De La Paz for local wound care. Thank you very much for the consultation. MMODL / ERICN: [id number] /
[2019-02-10] MEDS: HYDROcodone/APAP 10-325MG 1 EACH TAB PO PRN ×2 (03:29→09:50)
[2019-02-10] MEDS: NINTEDANIB ESYLATE 150 MG PO SCH ×2 (03:30→08:42)
[2019-02-10] MEDS: LACTATED RINGERS 1,000 ML IV SCH (06:58)
[2019-02-10 07:20] LABS: African American GFR (CKD) >90 (>60 ml/min/1.73 sqM); Anion Gap 10 mmol/L; Blood Urea Nitrogen 26 mg/dL (9-20); Calcium 9.6 mg/dL (8.4-10.2); Carbon Dioxide 26 mmol/L (22-30); Chloride 102 mmol/L (98-107); Glucose 108 mg/dL (74-99); Potassium 4.4 mmol/L (3.5-5.1); Sodium 138 mmol/L (137-145)
--- NOTE | 2019-02-10 07:29 | ECHOF ---
Referral Reason:CVA MEASUREMENTS -------- HEIGHT: 182.9 cm WEIGHT: 89.8 kg BP: RVIDd: 3.5 cm (< 3.3) IVSd: 1.0 cm (0.6 - 1.1) LVIDd: 5.2 cm (3.9 - 5.3) LVPWd: 1.1 cm (0.6 - 1.1) IVSs: 1.4 cm LVIDs: 3.5 cm LVPWs: 1.6 cm LA Diam: 3.3 cm (2.7 - 3.8) LAESV Index (A-L): 28.49 ml/m Ao Diam: 3.0 cm (2.0 - 3.7) AV Cusp: 2.0 cm (1.5 - 2.6) MV EXCURSION: 12.364 mm (> 18.000) MV EF SLOPE: 47 mm/s (70 - 150) EPSS: 1.4 cm MV E [place]: 0.96 m/s MV DecT: 185 ms MV A [place]: 0.97 m/s MV E/A Ratio: 0.99 AV maxP.66 mmHg AV meanP.30 mmHg AR PHT: 1032 ms RAP: 5.00 mmHg RVSP: 35.45 mmHg FINDINGS -------- Sinus rhythm. This was a technically adequate study. The left ventricular size is normal. There is borderline concentric left ventricular hypertrophy. Overall left ventricular systolic function is normal with, an EF between 55 - 60 %. The right ventricle is mildly enlarged. Normal LA size by volume 22+/-6 ml/m2. The right atrium is normal in size. Interatrial and interventricular septum intact. There is mild aortic valve sclerosis. There is mild aortic regurgitation. There is mild aortic st enosis present. Peak/mean gradient across the Aortic Valve is 14.66mmHg / 7.30mmHg. The mitral valve leaflets are mildly thickened. Mild mitral annular calcification present. Mild m itral regurgitation is present. Mild tricuspid regurgitation present. There is mild pulmonary hypertension. The right ventricular systolic pressure, as measured by Doppler, is 35.45mmHg. The pulmonic valve was not well visualized. The aortic root size is normal. Normal inferior vena cava with normal inspiratory collapse consistent with estimated right atrial pre ssure of 5 mmHg. There is no pericardial effusion. CONCLUSIONS -------- 1. Sinus rhythm. 2. This was a technically adequate study. 3. The left ventricular size is normal. 4. There is borderline concentric left ventricular hypertrophy. 5. Overall left ventricular systolic function is normal with, an EF between 55 - 60 %. 6. The right ventricle is mildly enlarged. 7. Normal LA size by volume 22+/-6 ml/m2. 8. The right atrium is normal in size. 9. Interatrial and interventricular septum intact. 10. There is mild aortic valve sclerosis. 11. There is mild aortic regurgitation. 12. There is mild aortic stenosis present. 13. Peak/mean gradient across the Aortic Valve is 14.66mmHg / 7.30mmHg. 14. The mitral valve leaflets are mildly thickened. 15. Mild mitral annular calcification present. 16. Mild mitral regurgitation is present. 17. Mild tricuspid regurgitation present. 18. There is mild pulmonary hypertension. 19. The right ventricular systolic pressure, as measured by Doppler, is 35.45mmHg. 20. The pulmonic valve was not well visualized. 21. The aortic root size is normal. 22. Normal inferior vena cava with normal inspiratory collapse consistent with estimated right atrial pressure of 5 mmHg. 23. There is no pericardial effusion. CABINET WORKER: Luisa Cruz RDCS
[2019-02-10] MEDS: CYANOCOBALAMIN 500 MCG TAB PO SCH (08:42)
[2019-02-10] MEDS: TAMSULOSIN 0.4 MG CAP.ER.24H PO SCH (08:42)
[2019-02-10] MEDS: ASPIRIN 81 MG PO SCH (08:42)
[2019-02-10] MEDS: GABAPENTIN 300 MG CAP PO SCH (08:42)
[2019-02-10] MEDS: METOPROLOL TARTRATE 50 MG TAB PO SCH (08:42)
[2019-02-10] MEDS ORDERED: FAMOTIDINE 20 MG TAB PO SCH (09:00)
[2019-02-10] MEDS: ALBUTEROL NEBULIZED 2.5 MG/3 ML INHALATION SCH ×2 (09:11→13:57)
[2019-02-10 11:10] VITALS: BP 117/56; TEMP 97.6
[2019-02-10 14:04] VITALS: PULSE 72
[2019-02-10 14:05] VITALS: BMI 27.3
--- NOTE | 2019-02-11 00:20 | P.DS ---
Providers Date of admission: 02/08/19 13:25 Expected date of discharge: 02/10/19 Attending physician: Khalif Gorman Consults: 02/08/19 13:25 Consult Physician Stat Consulting Provider: Cristin Ortega Consult Reason/Comments: TIA Do you want consulting provider notified?: Yes 02/09/19 10:24 Consult Physician Routine Consulting Provider: Garett Parks Consult Reason/Comments: ICA stenosis Do you want consulting provider notified?: Yes Primary care physician: Chago Fuller Hospital Course: Discharge diagnoses: -acute renal failure probably prerenal crit has gone from 1.03-1.39 -Chronic left foot wound from peripheral artery disease -Coronary artery disease with history of stent -COPD in an ex-smoker -Chronic pulmonary fibrosis -Hyperlipidemia -Essential hypertension -Peripheral neuropathy idiopathic -Chronic kidney dysfunction uses a walker -Right internal carotid artery stenosis moderate --This patient presents with increased generalized weakness. His weakness on the right side is not new. Hence I'm not too concerned about her new neurological deficit. Neurologically workup was initiated in the ER. Patient's symptoms probably more from asthenia from acute renal failure. Hospital course: This is a pleasant 78-year-old patient of Dr. fuller from visiting physicians. Chronic stable medical conditions include coronary coronary artery disease, COPD, hyperlipidemia, hypertension, pulmonary fibrosis, peripheral neuropathy. Patient also could've wound of the left lower extremity for which she follows with Dr. De La Paz.. Patient has good chronic weakness on the right arm and the right leg from prior episodes of stroke. Patient lives with several family members. Just felt unwell and out of sorts yesterday. No fever no chills. Appetite was decreased. Just felt rundown. There is no increased weakness on the right side. No change in bowel or urine pattern. Patient denies weakness was felt to be from acute renal failure. Was given fluids. Patient went back to his baseline. Patient should have a neurological workup. Did have a MRI of the brain, 2-D echo, CT of the brain. Workup was unremarkable. Patient was seen by neurologist. Patient feels back to his baseline. Patient's creatinine on admission was 1.39. Hydration did come down to 0.90. Lasix was discontinued. [employer]: Dr. Ortega/neurologist Physical examination: VITAL SIGNS: 97.6, 85, 18, 117/56, 93% room air r GENERAL: Average built, sitting up at the age of the bed, comfortable. EYES: Pupils equal. Conjunctiva normal. HEENT: External appearance of nose and ears normal, oral cavity grossly normal. NECK: JVD not raised; masses not palpable. HEART: First and second heart sounds are normal; no edema. LUNGS: Respiratory rate normal; decreased breath sounds. ABDOMEN: Soft, nontender, liver spleen not palpable, no masses palpable. PSYCH: Alert and oriented x3; mood and affect normal. NEUROLOGICAL: Cranial nerves grossly intact; no facial asymmetry, weakness on the right side power 4/5 Extremities: Dressing over the left foot. Investigations, reviewed in the clinical context: White count 7.6, hemoglobin 11.9, potassium 4.2, when necessary 23, creatinine 1.39 Patient. Creatinine was 23/1.03 on January 18 Chest x-ray film personally reviewed by me shows some pulmonary infiltrates Computed tomography scan of the brain shows age related changes CT angiogram of the head and neck shows moderate plus right internal coronary artery origin stenosis Disposition: Home Patient Condition at Discharge: Fair Plan - Discharge Summary Discharge Rx Participant: No New Discharge Prescriptions: Continue Nitroglycerin Sl Tabs [Nitrostat] 0.4 mg SUBLINGUAL Q5M PRN PRN Reason: Chest Pain Omeprazole 40 mg PO QAM Aspirin EC [Ecotrin Low Dose] 81 mg PO DAILY Metoprolol Tartrate [Lopressor] 50 mg PO BID Atorvastatin Calcium [Lipitor] 40 mg PO HS traZODone HCL 150 mg PO HS HYDROcodone/APAP 10-325MG [[place] 10-325] 1 tab PO TID PRN PRN Reason: Pain Gabapentin 600 mg PO TID Tamsulosin [Flomax] 0.4 mg PO DAILY Albuterol Nebulized [Ventolin Nebulized] 2.5 mg INHALATION RT-TID Ergocalciferol (Vitamin D2) [Drisdol] 50,000 unit PO Q7D Cyanocobalamin (Vitamin B-12) [Vitamin B-12] 1,000 mcg PO DAILY Melatonin 5 mg PO HS PRN PRN Reason: Insomnia Nintedanib Esylate [Ofev] 150 mg PO BID Discontinued Furosemide [Lasix] 40 mg PO DAILY Discharge Medication List Nitroglycerin Sl Tabs [Nitrostat] 0.4 mg SUBLINGUAL Q5M PRN 03/26/14 [History] Omeprazole 40 mg PO QAM 07/10/17 [History] Aspirin EC [Ecotrin Low Dose] 81 mg PO DAILY 12/14/17 [History] Atorvastatin Calcium [Lipitor] 40 mg PO HS 03/20/18 [History] Metoprolol Tartrate [Lopressor] 50 mg PO BID 03/20/18 [History] traZODone HCL 150 mg PO HS 03/20/18 [History] Gabapentin 600 mg PO TID 05/26/18 [History] HYDROcodone/APAP 10-325MG [[place] 10-325] 1 tab PO TID PRN 05/26/18 [History] Tamsulosin [Flomax] 0.4 mg PO DAILY 11/06/18 [History] Albuterol Nebulized [Ventolin Nebulized] 2.5 mg INHALATION RT-TID 02/08/19 [History] Cyanocobalamin (Vitamin B-12) [Vitamin B-12] 1,000 mcg PO DAILY 02/08/19 [History] Ergocalciferol (Vitamin D2) [Drisdol] 50,000 unit PO Q7D 02/08/19 [History] Melatonin 5 mg PO HS PRN 02/08/19 [History] Nintedanib Esylate [Ofev] 150 mg PO BID 02/08/19 [History] Follow up Appointment(s)/Referral(s): Chago Fuller MD [Primary Care Provider] - 1-2 days (Offices are closed, please call to make a follow up appointment when offices open Monday.) Garett Parks MD [STAFF PHYSICIAN] - 1 Week (Offices are closed, please call to make a follow up appointment when offices open Monday. ) Patient Instructions/Handouts: Transient Ischemic Attack (DC), COPD (Chronic Obstructive Pulmonary Disease) (DC) Discharge Disposition: HOME SELF-CARE
[2019-02-13] MEDS ORDERED: ERGOCALCIFEROL 50,000 UNIT CAP PO SCH (09:00)
== END 2019-02-10 15:48 | disposition home or self-care (01) ==
LOC: EC 11:06 → SUPCPDRO 11:06 → 3SCARD 13:25 → INTOOBSV 13:25
PROVIDERS: ADMIT Hospitalist; ATTEND Hospitalist
DX: G45.9 Transient cerebral ischemic attack, unspecified (principal); E78.5 Hyperlipidemia, unspecified; I65.21 Occlusion and stenosis of right carotid artery; J44.9 Chronic obstructive pulmonary disease, unspecified; I12.9 Hypertensive chronic kidney disease with stage 1 through stage 4 chronic kidney disease, or unspecified chronic kidney disease; I25.10 Atherosclerotic heart disease of native coronary artery without angina pectoris; N17.9 Acute kidney failure, unspecified; I73.9 Peripheral vascular disease, unspecified; J84.10 Pulmonary fibrosis, unspecified; G62.9 Polyneuropathy, unspecified; Z95.5 Presence of coronary angioplasty implant and graft; Z87.891 Personal history of nicotine dependence; I25.2 Old myocardial infarction; N18.9 Chronic kidney disease, unspecified; Z79.82 Long term (current) use of aspirin; Z79.899 Other long term (current) drug therapy; Z83.3 Family history of diabetes mellitus; Z96.641 Presence of right artificial hip joint; Z86.73 Personal history of transient ischemic attack (TIA), and cerebral infarction without residual deficits
CPT/HCPCS: 96361 ×3; 96360; 99285; 36415; 94640 ×4; 93005; 93306; 80061; 80053; 80048; 82550; 83605; 84443; 84484; 85025; 85610; 85730; 81003; 71046; 70496; 70450; 70498; 70551; G0378 ×3; Q9967

== ENCOUNTER 2019-12-01 23:14 | Inpatient (IN) | payer MEDICARE, OTHER ==
[2019-12-02] MEDS ORDERED: SODIUM CHLORIDE 0.9% 1,000 ML IV STA (00:03)
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
[2019-12-02 00:22] LABS: Basophils # (A) 0.1 k/uL (0-0.2); Basophils % (A) 1 %; Eosinophils # (A) 0.4 k/uL (0-0.7); Eosinophils % (A) 5 %; HCT 43.3 % (39.0-53.0); Hypochromasia Slight; Lymphocytes # (A) 2.1 k/uL (1.0-4.8); Lymphocytes % (A) 23 %; MCH 24.7 pg (25.0-35.0); Mean Platelet Volume 11.3; Monocytes # (A) 0.8 k/uL (0-1.0); Monocytes % (A) 8 %; Neutrophils # (A) 5.7 k/uL (1.3-7.7); Neutrophils % (A) 62 %; Platelet Count 279 k/uL (150-450); RBC 5.28 m/uL (4.30-5.90); RDW 15.1 % (11.5-15.5); WBC 9.3 k/uL (3.8-10.6)
--- NOTE | 2019-12-02 00:27 | XR ---
EXAMINATION TYPE: XR chest 1V DATE OF EXAM: 12/02/2019 COMPARISON: 01/31/2019 HISTORY: Mass. Fall. TECHNIQUE: FINDINGS: There is coarse interstitial infiltrates and atelectasis in the mid and lower lung byrne. There is no heart failure. Heart size is normal. There is no pleural effusion or pneumothorax. There is poor inspiration. IMPRESSION: Increased pulmonary interstitial infiltrates and atelectasis consistent with combined fib rosis and atelectasis that is worse than old exam. No heart failure seen.
--- NOTE | 2019-12-02 00:28 | XR ---
EXAMINATION TYPE: XR pelvis AP view DATE OF EXAM: 12/02/2019 COMPARISON: 03/26/2014 HISTORY: Fall. Pain. TECHNIQUE: FINDINGS: There is right hip prosthesis. Pelvic ring appears intact. Sacroiliac joints appear normal. Proximal left femur and hip joint appear intact. IMPRESSION: No acute abnormality of the pelvis. No fracture seen. No change compared to old exam.
[2019-12-02 00:30] LABS: INR 0.9 (<1.2); Partial Thromboplastin Time 22.1 sec (22.0-30.0); Prothrombin Time 9.7 sec (9.0-12.0)
--- NOTE | 2019-12-02 00:40 | CT ---
EXAMINATION TYPE: CT brain tamikoine wo con DATE OF EXAM: 12/02/2019 COMPARISON: 03/20/2018 HISTORY: head and neck pain after fall. CT DLP: 825.8 mGycm Automated exposure control for dose reduction was used. There is cerebral cortical atrophy. There is no mass effect nor midline shift. There is no sign of in tracranial hemorrhage. There is no evidence of cortical infarct. Calvarium is intact. Cervical vertebra have normal alignment. There is degenerative disc space narrowing throughout the ce rvical spine. Facet joints are intact. The skull base is intact. There is no evidence of cervical spi ne fracture. IMPRESSION: Multilevel spondylotic changes in the cervical spine. No fracture. Multilevel cervical bony spinal st enosis due to endplate spur formation. Cerebral atrophy. No acute intracranial abnormality. No change compared to old exam.
--- NOTE | 2019-12-02 00:43 | CT ---
EXAMINATION TYPE: CT facial bones wo con DATE OF EXAM: 12/02/2019 COMPARISON: None HISTORY: head and neck pain after fall. CT DLP: 451.7 mGycm Automated exposure control for dose reduction was used. Images were obtained from the bottom of the mandible to the top of the frontal sinuses with no contra st. The mandibular ring is intact. Temporomandibular joints appear intact. The maxilla is intact. There is no evidence of a blowout fracture. Zygomatic arches appear normal. Or bital margins are intact. There is no evidence of retro-orbital mass. I see no focal bone destruction . There is normal aeration of the temporal bones. There is fairly normal aeration of the paranasal si nuses. There is 1 cm mucous retention cyst in the right side sphenoid sinus. Nasal bone is intact. Th ere is some spurring at the temporomandibular joints. There is mild subcutaneous soft tissue swelling over the right frontal bone. IMPRESSION: No evidence of acute traumatic injury of the facial bones.
[2019-12-02 00:49] LABS: Albumin 4.1 g/dL (3.5-5.0); Calcium 9.9 mg/dL (8.4-10.2); Magnesium 1.8 mg/dL (1.6-2.3); Phosphorus 3.1 mg/dL (2.5-4.5); Potassium 4.9 mmol/L (3.5-5.1); Total Bilirubin 0.4 mg/dL (0.2-1.3)
[2019-12-02] MEDS ORDERED: HEPARIN SODIUM,PORCINE 5,000 UNIT/ML 1 ML VIAL IV PRN (01:36)
[2019-12-02] MEDS ORDERED: ASPIRIN 81 MG PO STA (01:36)
[2019-12-02] MEDS ORDERED: HEPARIN SODIUM,PORCINE 5,000 UNIT/ML 1 ML VIAL IV ONE (01:36)
[2019-12-02] MEDS ORDERED: NITROGLYCERIN SL TABS 0.4 MG TAB SUBLINGUAL PRN ×3 (01:36→16:00)
[2019-12-02] MEDS ORDERED: HEPARIN SOD,PORK IN 0.45% NACL 25,000 UNIT in 0.45% NACL 1 250ML.BAG IV SCH (01:45)
[2019-12-02 05:36] LABS: Mean Platelet Volume 10.3; Platelet Count 220 k/uL (150-450)
[2019-12-02] MEDS ORDERED: MELATONIN 5 MG TABLET PO PRN (08:23)
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
[2019-12-02] MEDS ORDERED: ASPIRIN 325 MG TAB PO STA (08:43)
[2019-12-02] MEDS ORDERED: SODIUM CHLORIDE 0.9% 1,000 ML in EMPTY BAG 1 BAG IV ONE (08:43)
[2019-12-02] MEDS ORDERED: ATORVASTATIN 80 MG TAB PO STA (08:43)
[2019-12-02] MEDS ORDERED: ALPRAZolam 0.5 MG TAB PO PRN (08:43)
[2019-12-02] MEDS ORDERED: ALPRAZolam 0.25 MG TAB PO PRN (08:43)
[2019-12-02] MEDS ORDERED: NON FORMULARY DRUG (Aspirin Ec 81 MG) PO SCH (09:00)
[2019-12-02] MEDS: NINTEDANIB ESYLATE 150 MG PO SCH ×2 (10:14→20:50)
[2019-12-02] MEDS: CYANOCOBALAMIN 500 MCG TAB PO SCH (10:18)
[2019-12-02] MEDS: PANTOPRAZOLE 40 MG TABLET PO SCH (10:18)
[2019-12-02] MEDS: METOPROLOL TARTRATE 50 MG TAB PO SCH ×2 (10:18→20:48)
[2019-12-02] MEDS: TAMSULOSIN 0.4 MG CAP.ER.24H PO SCH (10:18)
[2019-12-02] MEDS: GABAPENTIN 300 MG CAP PO SCH ×3 (10:18→20:49)
--- NOTE | 2019-12-02 10:37 | CONS ---
CONSULTATION Mr. Panchal is an 79-year-old male with a history of coronary artery disease, history of cerebrovascular accident, history of hypertension, hyperlipidemia, who presented after a fall. He had elevation of his troponin. According to him, he did not have syncope. It appears to be an orthostatic hypotension fall. No chest discomfort. No change in his breathing. No palpitation. He was in sinus mechanism on presentation. His past history is remarkable for history of stenting, although the details of that and not available to me. He has no history of recent CHF in the past. His systolic function was normal. MEDICATION: His medications at home include aspirin, Lipitor 40 mg daily, vitamin D, vitamin B, gabapentin, , metoprolol tartrate 50 mg twice a day, omeprazole, Flomax and trazodone. REVIEW OF SYSTEMS: RESPIRATORY SYSTEM: He has no documented history of asthma, emphysema or bronchitis. GI SYSTEM: No recent GI bleeding. No peptic ulcer disease. SYSTEM: No dysuria or hematuria. NERVOUS SYSTEM: He had a history of TIA. Past history is remarkable for the history of coronary artery disease as well history of ulceration on the left leg and history of pulmonary fibrosis with chronic dyspnea on exertion. The patient is limited in his activity. He has peripheral neuropathy. PHYSICAL EXAMINATION: He is an 79-year-old male, alert, oriented, in no apparent distress. Blood pressure 140/60 with a heart rate in the 60s. HEAD: Normocephalic. EYES: Sclerae nonicteric. NECK: Good upstroke, no bruit, no jugular venous distention. LUNGS: Clear to auscultation. HEART: Regular rate and rhythm. S1, S2. No S3. No rub appreciated. ABDOMEN: Soft, nontender, positive bowel sounds, no organomegaly. EXTREMITIES: No edema on the right side, evidence of dressing on the left side. LAB DATA: Revealed a troponin of 1.00 and then 0.820. BUN and creatinine of 25 and 0.93, potassium 4.9, hemoglobin of 13. EKG revealed a sinus mechanism, normal axis, intervals, left ventricular hypertrophy with nonspecific ST-T wave changes. Face CAT scan shows no evidence of fractures. Chest x-ray shows pulmonary interstitial infiltrate consistent with his fibrosis. No evidence of heart failure. IMPRESSION: 1. Elevation of troponin with no clear chest discomfort, rule out [id number] myocardial infarction. 2. Falls, could be related to hypotension. 3. History of pulmonary fibrosis. 4. History of transient ischemic attack. .. 5. History of coronary artery disease, status post stenting. 6. Hypertension. 7. Hyperlipidemia. RECOMMENDATION: I would recommend to obtain an echocardiogram with Doppler to evaluate the left ventricular systolic function. I had a long discussion with him about both options of clinical observation versus cardiac catheterization. The patient is in favor of cardiac catheterization. The procedures, risks, and complications were discussed with the patient who is in full understanding and agreement. Will proceed with the procedure today and depending on the results of testing, further recommendation will be made. Thank you for this consult. Will follow with you. MMODL / IJN: [id number] /
[2019-12-02] MEDS: ALBUTEROL HFA INHALER INHALATION SCH ×2 (11:32→20:07)
--- NOTE | 2019-12-02 12:01 | ECHOF ---
Referral Reason:elevTrop MEASUREMENTS -------- HEIGHT: 182.9 cm WEIGHT: 76.7 kg BP: 116/56 RVIDd: 3.7 cm (< 3.3) IVSd: 1.4 cm (0.6 - 1.1) LVIDd: 4.6 cm (3.9 - 5.3) LVPWd: 1.5 cm (0.6 - 1.1) IVSs: 1.5 cm LVIDs: 3.3 cm LVPWs: 2.1 cm LAESV Index (A-L): 43.00 ml/m Ao Diam: 3.5 cm (2.0 - 3.7) AV Cusp: 2.0 cm (1.5 - 2.6) MV EXCURSION: 18.048 mm (> 18.000) MV EF SLOPE: 98 mm/s (70 - 150) EPSS: 0.6 cm MV E [place]: 1.01 m/s MV DecT: 194 ms MV A [place]: 1.11 m/s MV E/A Ratio: 0.92 AR PHT: 475 ms RAP: 5.00 mmHg RVSP: 50.35 mmHg FINDINGS -------- Sinus rhythm. This was a technically adequate study. The left ventricular size is normal. There is moderate concentric left ventricular hypertrophy. O verall left ventricular systolic function is normal with, an EF between 55 - 60 %. Increased Lap Gr jer II Diastolic Dysfunction. The right ventricle is mildly enlarged. LA is moderately dilated 34-39 ml/m2 The right atrial size is normal. Interatrial and interventricular septum intact. There is mild aortic valve sclerosis. There is mild aortic regurgitation. There is no evidence of aortic stenosis. Xaii-pi-dnnchpic mitral regurgitation is present. Moderate tricuspid regurgitation present. There is moderate pulmonary hypertension. The right ean tricular systolic pressure, as measured by Doppler, is 50.35mmHg. There is no pulmonic regurgitation present. The aortic root size is normal. IVC Not well visulized. There is no pericardial effusion. CONCLUSIONS -------- 1. Sinus rhythm. 2. This was a technically adequate study. 3. The left ventricular size is normal. 4. There is moderate concentric left ventricular hypertrophy. 5. Overall left ventricular systolic function is normal with, an EF between 55 - 60 %. 6. Increased Lap Grade II Diastolic Dysfunction. 7. The right ventricle is mildly enlarged. 8. LA is moderately dilated 34-39 ml/m2 9. The right atrial size is normal. 10. Interatrial and interventricular septum intact. 11. There is mild aortic valve sclerosis. 12. There is mild aortic regurgitation. 13. There is no evidence of aortic stenosis. 14. Fieb-rs-goxathbk mitral regurgitation is present. 15. Moderate tricuspid regurgitation present. 16. There is moderate pulmonary hypertension. 17. The right ventricular systolic pressure, as measured by Doppler, is 50.35mmHg. 18. There is no pulmonic regurgitation present. 19. The aortic root size is normal. 20. IVC Not well visulized. 21. There is no pericardial effusion. PROTECTIVE SERVICE SPECIALIST: Gladys Pires RDCS
[2019-12-02 12:09] LABS: Appearance,Urine Clear (Clear); Bacteria,Urine Rare /hpf; Bilirubin,Urine Negative (Negative); Blood,Urine Negative (Negative); Color,Urine Yellow; Glucose,Urine (UA) Negative (Negative); Ketones,Urine Negative (Negative); Leukocyte Esterase,Urine Moderate (Negative); Nitrite,Urine Negative (Negative); PH, Urine 5.5 (5.0-8.0); Protein,Urine Negative (Negative); RBC,Urine 1 /hpf (0-5); Specific Gravity,Urine 1.019 (1.001-1.035); Squamous Epithelial Cell,Urine <1 /hpf (0-4); Urobilinogen,Urine <2.0 mg/dL (<2.0); WBC,Urine 23 /hpf (0-5)
[2019-12-02] MEDS ORDERED: IV FLUID CONTINUATION 1,000 ML IV ONE (14:38)
[2019-12-02] MEDS ORDERED: VERAPAMIL 2.5 MG/ML 2 ML AMP ONE (14:46)
[2019-12-02] MEDS ORDERED: fentaNYL (PF) 50 MCG/ML 2 ML AMP ONE (14:46)
[2019-12-02] MEDS ORDERED: LIDOCAINE 1% INJ 10MG/ML (20 ML MDV) ONE (14:46)
[2019-12-02] MEDS ORDERED: fentaNYL (PF) 50 MCG/ML 2 ML AMP IV ONE (14:48)
[2019-12-02] MEDS ORDERED: LIDOCAINE 1% INJ 10MG/ML (20 ML MDV) SQ ONE (14:49)
[2019-12-02] MEDS ORDERED: VERAPAMIL SYRINGE (5 MG/10 ML) INTRAARTER ONE ×2 (14:50→14:52)
[2019-12-02] MEDS ORDERED: MIDAZOLAM 2 MG/2 ML VIAL IV ONE (14:57)
[2019-12-02] MEDS ORDERED: TICAGRELOR 90 MG TAB ONE (15:06)
[2019-12-02] MEDS ORDERED: BIVALIRUDIN BOLUS 250 MG/50 ML IV ONE (15:07)
[2019-12-02] MEDS ORDERED: BIVALIRUDIN 250 MG in SODIUM CHLORIDE 0.9% 50 ML IV ONE (15:09)
[2019-12-02] MEDS ORDERED: TICAGRELOR 90 MG TAB PO ONE (15:09)
[2019-12-02] MEDS ORDERED: NITROGLYCERIN 1000MCG/10ML SYRINGE INTRACORON ONE ×2 (15:11→15:35)
[2019-12-02] MEDS ORDERED: IOPAMIDOL-370 125ML BTL INJ ONE (15:32)
[2019-12-02] MEDS ORDERED: IOPAMIDOL-370 100ML BTL INJ ONE ×2 (15:36→15:44)
[2019-12-02] MEDS ORDERED: RX INFO: IV CONTRAST WAS GIVEN 1 EACH MISC MISCELLANE PRN (16:00)
[2019-12-02] MEDS ORDERED: MAG HYDROX/AL HYDROX/SIMETH 30 ML CUP PO PRN (16:00)
[2019-12-02] MEDS ORDERED: SODIUM CHLORIDE 0.9% 1,000 ML IV SCH (16:00)
[2019-12-02] MEDS ORDERED: ATROPINE SULFATE 0.1 MG/ML 10ML SYRINGE IV PRN (16:00)
[2019-12-02] MEDS ORDERED: ZOLPIDEM 5 MG TAB PO PRN (16:00)
--- NOTE | 2019-12-02 16:19 | CC ---
CARDIAC CATHETERIZATION REPORT Mr. Panchal is an 79-year-old male with a known history of coronary artery disease, history of hyperlipidemia, who presented to the emergency room after a fall and had elevation of his troponin. There was no significant EKG changes. Because of his presentation recommendation made regarding cardiac catheterization. The procedures, risks, and complications were discussed with the patient who is in full understanding and agreement. PROCEDURE: Patient was brought to the labor trainer in a fasting semi-sedated state after receiving fentanyl and Benadryl and achieving moderate conscious sedated state. Using Xylocaine anesthesia and Seldinger technique, a 6-Haitian sheath was introduced in the right radial artery. Selective right and left coronary angiography was performed using 5- Haitian 3.5 bend right and left Carina catheter, multiple views of the coronary artery including hemiaxial views were obtained. Following that a 5-Haitian left Carina was used to cross the aortic valve and left ventricular end-diastolic pressure was calculated. Following that, catheters were removed, images were reviewed. FINDINGS: LEFT MAIN: This is a large-sized vessel, bifurcating into left circumflex, left anterior descending artery. Left main coronary artery has no evidence of high-grade stenosis. LEFT ANTERIOR DESCENDING ARTERY: This is a large-sized vessel, reaching toward the apex, tapers down distal third, giving rise to 2 diagonal branch, after the takeoff of first diagonal branch in the proximal segment, there is 99% stenosis. The rest of the vessel has no high-grade stenosis. LEFT CIRCUMFLEX: This is a large nondominant vessel, giving rise to two obtuse marginal branches. The stented segment in the left circumflex is patent with no evidence of significant in-stent stenosis. RIGHT CORONARY ARTERY: This is a large dominant vessel, bifurcating distally into PDA and posterolateral segment and branches. The mid right coronary artery has 20% to 30% plaque. It bifurcates distally PDA and a PLV. The PDA is subtotally occluded with minimal antegrade flow. COLLATERALS: There is collateral from the left anterior descending artery toward the right PDA. LEFT VENTRICULOGRAM: Left ventriculogram was not performed. HEMODYNAMICS: There was no gradient across the aortic valve. The left ventricular end- diastolic pressure was 16 mmHg. CONCLUSION: 1. Critical stenosis involving the proximal LAD. 2. Subtotally occluded right PDA. 3. Patent stent in the left circumflex. RECOMMENDATION: In view of finding anatomy, I recommend proceeding with angioplasty and stenting of the left anterior descending artery and the right coronary artery. The procedures, risks, and complication were discussed with the patient who is in full understanding and agreement. MMJORGEL / IJN: [id number] /
--- NOTE | 2019-12-02 16:21 | PTCA ---
PERCUTANEOUSTRANS CORORONARY ANGIOGRAPHY Mr. Panchal is an 79-year-old male with known history of coronary artery disease who presented with a fall and evidence of non ST-segment elevation by enzymatic changes. In view of that, he underwent cardiac catheterization, was found to have critical stenosis involving the proximal LAD and subtotally occluded right PDA. Recommendation was made regarding angioplasty and stenting. The procedures, risks, and complication were discussed with the patient who is in full understanding and agreement. PROCEDURE: A 6-Egyptian FL 3.5 guiding catheter introduced into the system after cannulating the left main, a 0.014 balanced medium weight J-wire was advanced across the LAD and positioned distally. Subsequently, a 2.5 x 12 mm Trek balloon was advanced and multiple inflation at 10 atmospheres were done. Following that, the balloon was removed and 3.0 x 15 mm Xience Susana stent was deployed, postdilated at 16 atmospheres after the last inflation, after appropriate wait, the balloon and the guidewire were withdrawn back in the guiding catheter. Images were obtained and repeated. Those images reveal stable successful stenting. At that point, the guiding catheter, the balloon and the guidewire removed and a 6-Egyptian FR4 guiding catheter introduced into the system. After cannulating the right coronary ostium, a 0.014 balanced medium J-wire was advanced across the subtotal occlusion, positioned distally with the help of a straight Fine Cross. Following that, the Fine Cross was removed and a 2.4 x 12 mm Mini Trek balloon was advanced and multiple inflation at 10 atmospheres were done. Following that, the balloon was removed and a 2.5 x 18 mm Xience Susana stent was deployed, post dilated at 16 atmospheres. After the last inflation, after appropriate wait, the balloon and the guidewire were withdrawn back in the guiding catheter. Images were obtained and repeated. Those images reveal stable successful stenting. At that point, the guiding catheter, the balloon and the guidewire were removed. The sheath was removed. Hemostasis was obtained with deployment of a TR band. There was no immediate complication. Patient is returned to his room in stable condition. Of note, the patient received Angiomax per protocol as well as oral loading dose of Brilinta. He had EKG changes with the inflation of the LAD, but no significant chest discomfort. RESULTS: 1. Successful stenting of the proximal LAD with reduction of stenosis from 99% to 0%. 2. Successful stenting of the right PDA with reduction of stenosis from 99% to 0%. RECOMMENDATION: Patient will be continued on aspirin, Brilinta, statin. Aggressive risks modification will be continued. The results were discussed with the patient who was in full understanding and agreement. Duration of the procedure is 62 minutes. TALIA / ERICN: [id number] / MTDGina
--- NOTE | 2019-12-02 16:28 | LTR ---
DATE OF SERVICE: 12/02/2019 RE: Ashok Panchal Dear Dr. Patel; I had the pleasure to perform cardiac catheterization and coronary angioplasty and stenting on Mr. Panchal at [facility] on December 02, 2019 and a full copy of the procedure note will be forwarded to you. In brief, he was found to have critical stenosis involving the proximal LAD and the right PDA and underwent successful stenting of both vessels. I am hopeful that this procedure will stabilize his status and thank you again for allowing me to participate in this patient's care. Please feel free to call for any questions. Sincerely yours, MD TALIA Jenkins / ERICN: [id number] /
[2019-12-02] MEDS: traZODone HCL 100 MG TAB PO SCH (20:47)
[2019-12-02] MEDS: TICAGRELOR 90 MG TAB PO SCH (20:48)
[2019-12-03] MEDS: PANTOPRAZOLE 40 MG TABLET PO SCH (06:39)
[2019-12-03 07:22] LABS: HCT 38.9 % (39.0-53.0); HGB 12.5 gm/dL (13.0-17.5); MCH 26.7 pg (25.0-35.0); MCHC 32.1 g/dL (31.0-37.0); Mean Platelet Volume 10.5; Platelet Count 249 k/uL (150-450); RBC 4.68 m/uL (4.30-5.90); RDW 15.4 % (11.5-15.5); WBC 9.5 k/uL (3.8-10.6)
[2019-12-03 07:43] LABS: Albumin 3.5 g/dL (3.5-5.0); Calcium 9.3 mg/dL (8.4-10.2); Potassium 4.5 mmol/L (3.5-5.1); Total Bilirubin 0.6 mg/dL (0.2-1.3); Total Protein 6.5 g/dL (6.3-8.2)
[2019-12-03] MEDS: ALBUTEROL HFA INHALER INHALATION SCH ×3 (08:14→20:29)
--- NOTE | 2019-12-03 08:18 | P.PN ---
Subjective Progress Note Date: 12/03/19 Principal diagnosis: CAD and mobility issues This is a continue progress note an 79-year-old white male essentially been for acute coronary syndrome. Status post PTCA. The patient is now resting in bed. We need to test ambulation due to history of falls. Question element of need of rehab. Objective - Vital Signs Vital signs: Vital Signs Temp 98.5 F 12/03/19 04:00 Pulse 61 12/03/19 04:00 Resp 17 12/03/19 04:00 BP 121/67 12/03/19 04:00 Pulse Ox 98 12/03/19 04:00 Intake & Output 12/02/19 12/03/19 12/03/19 18:59 06:59 18:59 Intake Total 558 300 Output Total 650 725 Balance -92 -425 Weight 77.3 kg Intake: IV 117 Intake, IV Titration 201 300 Amount Heparin Sod,Pork in 0.45% 47 NaCl 25,000 unit In 0.45 % NaCl 1 250ml.bag @ 12 UNITS/KG/HR 9.253 mls/hr IV .Q24H [facility] Rx#: [id number] Sodium Chloride 0.9% 1, 300 000 ml @ 100 mls/hr IV . Q10H [facility] Rx#:[id number] Sodium Chloride 0.9% 1, 154 000 ml In Empty Bag 1 bag @ 1 ML/KG/HR 77 mls/hr IV .Q13H ONE Rx#: [id number] Oral 240 Output: Urine 650 725 Other: Voiding Method Urinal Urinal # Voids 1 1 # Bowel Movements 1 - Constitutional General appearance: Present: average body habitus - EENT Eyes: Absent: abnormal pupil - Neck Neck: Absent: lymphadenopathy - Respiratory Respiratory: bilateral: CTA - Cardiovascular Rhythm: regular Heart sounds: normal: S1, S2 Abnormal Heart Sounds: Absent: S3 Gallop - Gastrointestinal General gastrointestinal: Absent: tenderness - Integumentary Integumentary: Absent: cellulitis - Neurologic Neurologic: Present: CNII-XII intact. Absent: focal deficits - Musculoskeletal Musculoskeletal: Present: generalized weakness - Labs CBC & Chem 7: 12/03/19 06:39 12/03/19 06:39 Labs: Abnormal Lab Results - Last 24 Hours (Table) 12/02/19 12/03/19 12/03/19 Range/Units 11:55 06:39 06:39 Hgb 12.5 L (13.0-17.5) gm/dL Hct 38.9 L (39.0-53.0) % Sodium 136 L (137-145) mmol/L Carbon Dioxide 20 L (22-30) mmol/L Glucose 109 H (74-99) mg/dL Ur Leukocyte Esterase Moderate H (Negative) Urine WBC 23 H (0-5) /hpf Urine Bacteria Rare H (None) /hpf Microbiology - Last 24 Hours (Table) 12/02/19 11:55 Urine Culture - Preliminary Urine,Voided Assessment and Plan (1) Facial laceration Current Visit: Yes Status: Acute Code(s): S01.81XA - LACERATION W/O FOREIGN BODY OF OTH PART OF HEAD, INIT ENCNTR SNOMED Code(s): 466881671 (2) Recurrent falls Current Visit: Yes Status: Acute Code(s): R29.6 - REPEATED FALLS SNOMED Code(s): 214225927 (3) History of myocardial infarction Current Visit: No Status: Acute Code(s): I25.2 - OLD MYOCARDIAL INFARCTION SNOMED Code(s): 238880087 (4) Hyperlipidemia Current Visit: No Status: Acute Code(s): E78.5 - HYPERLIPIDEMIA, UNSPECIFIED SNOMED Code(s): 42069215 (5) Hypertension Current Visit: No Status: Acute Code(s): I10 - ESSENTIAL (PRIMARY) HYPERTENSION SNOMED Code(s): 12708288 Plan: Rule out myocardial infarction. Discharge planning for possible rehab. Consult PT and OT if not done. status post PTCA. Anticipate discharge in next 24 hours if ambulating properly
[2019-12-03] MEDS ORDERED: ASPIRIN 81 MG PO SCH (09:00)
[2019-12-03] MEDS ORDERED: ASPIRIN 325 MG TAB PO SCH (09:00)
[2019-12-03] MEDS: GABAPENTIN 300 MG CAP PO SCH ×3 (09:17→20:08)
[2019-12-03] MEDS: TAMSULOSIN 0.4 MG CAP.ER.24H PO SCH (09:18)
[2019-12-03] MEDS: CYANOCOBALAMIN 500 MCG TAB PO SCH (09:18)
[2019-12-03] MEDS: METOPROLOL TARTRATE 50 MG TAB PO SCH ×2 (09:18→20:09)
[2019-12-03] MEDS: SULFAMETHOX-TMP 800-160MG 1 EACH TAB PO SCH ×2 (09:18→20:08)
[2019-12-03] MEDS: ASPIRIN 81 MG PO SCH (09:18)
[2019-12-03] MEDS: TICAGRELOR 90 MG TAB PO SCH ×2 (09:19→20:09)
--- NOTE | 2019-12-03 09:38 | PN ---
PROGRESS NOTE Mr. Panchal is an 79-year-old male with known history of coronary artery disease who presented with a fall and elevation of troponin, underwent cardiac catheterization was found to have critical stenosis in the proximal LAD as well as subtotally occluded right PDA, underwent stenting of both vessels. He is doing well this morning. He is feeling weak, but no chest pain. His breathing is stable. He denies any dizziness or palpitation and he is hemodynamically stable, in sinus mechanism. He continues on aspirin 81 mg daily, Lipitor 80 mg daily, gabapentin 600 mg 3 times a day, metoprolol tartrate 50 mg twice a day, Brilinta 90 mg twice a day, Flomax and trazodone. PHYSICAL EXAMINATION: Blood pressure 120/60 with a heart rate in the 60s. LUNGS: Clear. HEART: Regular rate and rhythm, S1, S2. No S3 with systolic murmur, no diastolic murmur, no rub. ABDOMEN: Soft, nontender. EXTREMITIES: No edema. Dressing noted on the left leg. Right radial pulse intact. EKG revealed no acute changes. LAB DATA: Revealed BUN and creatinine 20 and 1.01, potassium 4.5. Echocardiogram performed yesterday revealed an ejection fraction of 55%-60% with mild to moderate mitral and moderate tricuspid regurgitation with moderate pulmonary hypertension. IMPRESSION: 1. Status post stenting of the LAD and to the right coronary artery with a patent stent to the left circumflex. 2. Kjz-CQ-faczxldhb myocardial infarction. 3. Hyperlipidemia. 4. Falls. 5. Neuropathy. RECOMMENDATION: From the cardiac standpoint, will continue present therapy. If he is stable, he may be able to be discharged home today and follow up as an outpatient. MMODL / IJN: [id number] /
[2019-12-03 09:47] VITALS: BMI 23.1
[2019-12-03] MEDS: NINTEDANIB ESYLATE 150 MG PO SCH ×2 (13:34→19:54)
[2019-12-03] MEDS: traZODone HCL 100 MG TAB PO SCH (20:08)
[2019-12-03] MEDS: ATORVASTATIN 80 MG TAB PO SCH (20:08)
[2019-12-03] MEDS ORDERED: ATORVASTATIN 40 MG TAB PO SCH (21:00)
[2019-12-04] MEDS: PANTOPRAZOLE 40 MG TABLET PO SCH (06:04)
[2019-12-04] MEDS: ALBUTEROL HFA INHALER INHALATION SCH ×3 (08:23→19:54)
--- NOTE | 2019-12-04 08:23 | P.DS ---
Providers Date of admission: 12/02/19 01:36 Attending physician: Lenard Patel Consults: 12/02/19 01:36 Consult Physician Urgent Consulting Provider: Indu Chavez Consult Reason/Comments: nstemi Do you want consulting provider notified?: Yes 12/02/19 16:01 Consult Physician Routine Consulting Provider: [facility] Consult Reason/Comments: Post Interventional patient Do you want consulting provider notified?: Already Contacted Primary care physician: Lenard Patel - Discharge Diagnosis(es) (1) Facial laceration Current Visit: Yes Status: Acute (2) Recurrent falls Current Visit: Yes Status: Acute (3) History of myocardial infarction Current Visit: No Status: Acute (4) Hyperlipidemia Current Visit: No Status: Acute (5) Hypertension Current Visit: No Status: Acute Hospital Course: The patient is an 79-year-old white male essentially been for acute coronary syndrome and had appropriate PTCA. Due to his multiple falls and general immobility and cognitive decline, he will be transferred to [facility] for appropriate rehab for gait training and strength improvement. He has had multiple falls at home and will follow-up with me once he is discharged from [facility]. Patient Condition at Discharge: Stable Plan - Discharge Summary Discharge Rx Participant: No New Discharge Prescriptions: New Ticagrelor [Brilinta] 90 mg PO BID #180 tab Atorvastatin [Lipitor] 80 mg PO HS #90 tab Mag Hydrox/Al Hydrox/Simeth [Maalox] 30 ml PO Q4HR PRN ml PRN Reason: Heartburn Nintedanib Esylate [Ofev] 150 mg PO BID Albuterol Inhaler [Ventolin Hfa Inhaler] 2 puff INHALATION RT-TID puff Cyanocobalamin [Vitamin B-12] 1,000 mcg PO DAILY #30 tab Ergocalciferol [Vitamin D2 (DRISDOL)] 50,000 unit PO Q7D #5 cap Continue Nitroglycerin Sl Tabs [Nitrostat] 0.4 mg SUBLINGUAL Q5M PRN PRN Reason: Chest Pain Omeprazole 40 mg PO DAILY Aspirin EC [Ecotrin Low Dose] 81 mg PO DAILY Metoprolol Tartrate [Lopressor] 50 mg PO BID traZODone HCL 150 mg PO HS Gabapentin 600 mg PO DAILY PRN PRN Reason: Pain Tamsulosin [Flomax] 0.4 mg PO DAILY Melatonin 5 mg PO HS PRN PRN Reason: Insomnia Ibuprofen 800 mg PO Q8H PRN PRN Reason: Pain Furosemide [Lasix] 40 mg PO DAILY Discontinued Atorvastatin Calcium [Lipitor] 40 mg PO HS Cholecalciferol [Vitamin D3 (25 Mcg = 1000 Iu)] 1,000 unit PO DAILY Discharge Medication List Nitroglycerin Sl Tabs [Nitrostat] 0.4 mg SUBLINGUAL Q5M PRN 03/26/14 [History] Omeprazole 40 mg PO DAILY 07/10/17 [History] Aspirin EC [Ecotrin Low Dose] 81 mg PO DAILY 12/14/17 [History] Metoprolol Tartrate [Lopressor] 50 mg PO BID 03/20/18 [History] traZODone HCL 150 mg PO HS 03/20/18 [History] Gabapentin 600 mg PO DAILY PRN 05/26/18 [History] Tamsulosin [Flomax] 0.4 mg PO DAILY 11/06/18 [History] Melatonin 5 mg PO HS PRN 02/08/19 [History] Furosemide [Lasix] 40 mg PO DAILY 12/02/19 [History] Ibuprofen 800 mg PO Q8H PRN 12/02/19 [History] Atorvastatin [Lipitor] 80 mg PO HS #90 tab 12/03/19 [Rx] Ticagrelor [Brilinta] 90 mg PO BID #180 tab 12/03/19 [Rx] Albuterol Inhaler [Ventolin Hfa Inhaler] 2 puff INHALATION RT-TID puff 12/04/19 [Rx] Cyanocobalamin [Vitamin B-12] 1,000 mcg PO DAILY #30 tab 12/04/19 [Rx] Ergocalciferol [Vitamin D2 (DRISDOL)] 50,000 unit PO Q7D #5 cap 12/04/19 [Rx] Mag Hydrox/Al Hydrox/Simeth [Maalox] 30 ml PO Q4HR PRN ml 12/04/19 [Rx] Nintedanib Esylate [Ofev] 150 mg PO BID 12/04/19 [Rx] Follow up Appointment(s)/Referral(s): Indu Chavez MD [STAFF PHYSICIAN] - 1 Week ([employer]) [facility] [NON-STAFF] - (After discharge, you will follow-up with your appraiser personal property. Once you have obtained a prescription for cardiac rehab, please call [phone] to set up an evaluation.) Lenard Patel MD [Primary Care Provider] - 1-2 days Patient Instructions/Handouts: *Surgery [facility] - After Heart Catheterization - Broiler Supervisor Instructions, Heart Healthy Diet (DC), Fall Prevention for Older Adults (DC)
[2019-12-04] MEDS: METOPROLOL TARTRATE 50 MG TAB PO SCH ×2 (08:30→22:09)
[2019-12-04] MEDS: ASPIRIN 81 MG PO SCH (08:30)
[2019-12-04] MEDS: GABAPENTIN 300 MG CAP PO SCH ×3 (08:30→22:09)
[2019-12-04] MEDS: TAMSULOSIN 0.4 MG CAP.ER.24H PO SCH (08:30)
[2019-12-04] MEDS: CYANOCOBALAMIN 500 MCG TAB PO SCH (08:30)
[2019-12-04] MEDS: SULFAMETHOX-TMP 800-160MG 1 EACH TAB PO SCH ×2 (08:31→22:09)
[2019-12-04] MEDS: TICAGRELOR 90 MG TAB PO SCH ×2 (08:31→22:09)
[2019-12-04] MEDS: NINTEDANIB ESYLATE 150 MG PO SCH ×2 (09:11→22:00)
--- NOTE | 2019-12-04 10:31 | PN ---
PROGRESS NOTE Mr. Panchal is an 79-year-old male who presented with a fall and was found to have evidence of non STEMI, underwent cardiac catheterization and stenting of the proximal LAD and the right PDA. He is doing well this morning. He feels weak, fatigued. He is scheduled to be transferred to rehab. He is denying any chest pain. No dizziness. No palpitation. No nausea. He continues to be on aspirin once a day, Lipitor 80 mg daily, gabapentin 600 mg 3 times a day, metoprolol tartrate 50 mg twice a day, tamsulosin, Brilinta 90 mg daily, trazodone. PHYSICAL EXAMINATION: Blood pressure 111/60 with a heart rate in the 60s. LUNGS: Clear. HEART: Regular rate and rhythm, S1, S2. No S3. No rub. ABDOMEN: Soft nontender. EXTREMITIES: No edema. IMPRESSION: 1. Non ST-segment elevation myocardial infarction with stenting of the LAD and the right PDA. 2. Episode of fall. 3. Hyperlipidemia. 4. Neuropathy. RECOMMENDATION: Patient will be transferred to rehab today. He will be followed as an outpatient in the office and depending on his progress, further recommendation will be made. MMODL / IJN: [id number] /
[2019-12-04] MEDS: ATORVASTATIN 80 MG TAB PO SCH (22:09)
[2019-12-04] MEDS: traZODone HCL 100 MG TAB PO SCH (22:09)
[2019-12-05] MEDS: PANTOPRAZOLE 40 MG TABLET PO SCH (06:58)
[2019-12-05] MEDS: ALBUTEROL HFA INHALER INHALATION SCH ×2 (07:45→12:13)
[2019-12-05 09:15] VITALS: TEMP 97.8
[2019-12-05] MEDS: TAMSULOSIN 0.4 MG CAP.ER.24H PO SCH (09:16)
[2019-12-05] MEDS: SULFAMETHOX-TMP 800-160MG 1 EACH TAB PO SCH (09:16)
[2019-12-05] MEDS: ASPIRIN 81 MG PO SCH (09:16)
[2019-12-05] MEDS: TICAGRELOR 90 MG TAB PO SCH (09:16)
[2019-12-05] MEDS: METOPROLOL TARTRATE 50 MG TAB PO SCH (09:16)
[2019-12-05] MEDS: CYANOCOBALAMIN 500 MCG TAB PO SCH (09:16)
[2019-12-05] MEDS: GABAPENTIN 300 MG CAP PO SCH (09:17)
[2019-12-05] MEDS: NINTEDANIB ESYLATE 150 MG PO SCH (09:17)
--- NOTE | 2019-12-05 10:48 | PN ---
PROGRESS NOTE Mr. Panchal is an 79-year-old male who presented with a fall and non ST-segment elevation myocardial infarction, was found to have critical stenosis involving the proximal LAD and the right PDA, underwent stenting of both vessels. He is doing well this morning. His breathing is stable. He denies any chest pain. No dizziness. He feels weak. He is scheduled to be transferred to rehab. He continues to be on aspirin once a day, Lipitor 80 mg daily, metoprolol tartrate 50 mg twice a day, Brilinta 90 mg twice a day. PHYSICAL EXAMINATION: Blood pressure 133/70 with a heart rate in the 80s. LUNGS: Clear. HEART: Regular rate and rhythm. S1, S2. No S3. No rub. ABDOMEN: Soft, obese, nontender. EXTREMITIES: No edema. IMPRESSION: 1. Status post fall with generalized weakness and neuropathy. 2. Non ST-segment elevation myocardial infarction and stenting of the proximal LAD and the right PDA. 3. Hyperlipidemia. 4. Neuropathy. RECOMMENDATION: From the cardiac standpoint, he will be transferred to rehab and then followed in the office in one week. MMODL / IJN: [id number] /
[2019-12-05 11:02] VITALS: BP 121/73; PULSE 69; RESP 18
[2019-12-09] MEDS ORDERED: ERGOCALCIFEROL 50,000 UNIT CAP PO SCH (09:00)
== END 2019-12-05 14:11 | DRG 247 ==
LOC: EC 23:14 → 3SCARD 12-02 01:36
PROVIDERS: ADMIT Family Medicine; ATTEND Family Medicine
PROC: 0HQ1XZZ Repair Face Skin, External Approach (ICD-10-PCS; 2019-12-02)
PROC: 027135Z Dilation of Coronary Artery, Two Arteries with Two Drug-eluting Intraluminal Devices, Percutaneous Approach (ICD-10-PCS; principal; 2019-12-02 14:30)
PROC: 4A023N7 Measurement of Cardiac Sampling and Pressure, Left Heart, Percutaneous Approach (ICD-10-PCS; 2019-12-02 14:30)
PROC: B2111ZZ Fluoroscopy of Multiple Coronary Arteries using Low Osmolar Contrast (ICD-10-PCS; 2019-12-02 14:30)
DX: I21.4 Non-ST elevation (NSTEMI) myocardial infarction (principal); L97.829 Non-pressure chronic ulcer of other part of left lower leg with unspecified severity; I25.10 Atherosclerotic heart disease of native coronary artery without angina pectoris; R29.6 Repeated falls; J44.9 Chronic obstructive pulmonary disease, unspecified; E78.5 Hyperlipidemia, unspecified; J84.10 Pulmonary fibrosis, unspecified; G62.9 Polyneuropathy, unspecified; S01.81XA Laceration without foreign body of other part of head, initial encounter; I11.9 Hypertensive heart disease without heart failure; N42.9 Disorder of prostate, unspecified; I25.2 Old myocardial infarction; W01.0XXA Fall on same level from slipping, tripping and stumbling without subsequent striking against object, initial encounter; Z71.3 Dietary counseling and surveillance; Z79.82 Long term (current) use of aspirin; Z79.899 Other long term (current) drug therapy; Z86.73 Personal history of transient ischemic attack (TIA), and cerebral infarction without residual deficits; Z96.641 Presence of right artificial hip joint; Z86.14 Personal history of Methicillin resistant Staphylococcus aureus infection; Z95.5 Presence of coronary angioplasty implant and graft; Z87.891 Personal history of nicotine dependence; Z98.890 Other specified postprocedural states; Z88.1 Allergy status to other antibiotic agents; Z88.8 Allergy status to other drugs, medicaments and biological substances; Z80.9 Family history of malignant neoplasm, unspecified; Z83.3 Family history of diabetes mellitus
CPT/HCPCS: 12011; 36415; 70450; 70486; 71045; 72125; 72170; 80053; 81001; 83735; 84100; 84484; 85025; 85027; 85049; 85347; 85610; 85730; 87086; 93005; 93306; 93458; 94640; 96365; 96366; 96368; 96376; 99285

== ENCOUNTER 2020-08-26 16:34 | Inpatient (IN) | payer MEDICARE, OTHER ==
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
--- NOTE | 2020-08-26 17:37 | XR ---
EXAMINATION TYPE: XR chest 1V portable DATE OF EXAM: 08/26/2020 COMPARISON: 12/02/2019. HISTORY: Shortness of breath. TECHNIQUE: Single frontal view of the chest is obtained. FINDINGS: There is moderate left basilar opacity. No significant pleural effusion, or pneumothorax s een. The cardiac silhouette size is within normal limits. The osseous structures are intact. IMPRESSION: Left basilar infiltrate.
[2020-08-26 18:01] LABS: Basophils # (A) 0.1 k/uL (0-0.2); Basophils % (A) 1 %; Eosinophils # (A) 0.1 k/uL (0-0.7); Eosinophils % (A) 1 %; HCT 44.2 % (39.0-53.0); HGB 13.6 gm/dL (13.0-17.5); Hypochromasia Slight; Lymphocytes # (A) 0.9 k/uL (1.0-4.8); Lymphocytes % (A) 8 %; MCH 27.1 pg (25.0-35.0); MCHC 30.7 g/dL (31.0-37.0); MCV 88.4 fL (80.0-100.0); Mean Platelet Volume 9.2; Monocytes % (A) 9 %; Neutrophils # (A) 9.3 k/uL (1.3-7.7); Neutrophils % (A) 80 %; Platelet Count 224 k/uL (150-450); RDW 14.4 % (11.5-15.5); WBC 11.6 k/uL (3.8-10.6)
[2020-08-26 18:21] LABS: INR 1.1 (<1.2); Partial Thromboplastin Time 22.5 sec (22.0-30.0); Prothrombin Time 11.1 sec (9.0-12.0)
[2020-08-26 18:24] LABS: Albumin 3.9 g/dL (3.5-5.0); Calcium 10.1 mg/dL (8.4-10.2); Potassium 4.4 mmol/L (3.5-5.1); Total Bilirubin 0.6 mg/dL (0.2-1.3); Total Protein 7.6 g/dL (6.3-8.2)
[2020-08-26 18:28] LABS: D-Dimer 26.71 mg/L FEU (<0.60)
[2020-08-26 18:37] LABS: C Reactive Protein 143.5 mg/L (<10.0)
[2020-08-26] MEDS ORDERED: HEPARIN SODIUM,PORCINE 10,000 UNIT/ML 1 ML VIAL IV ONE (18:51)
[2020-08-26] MEDS ORDERED: HEPARIN SODIUM,PORCINE 5,000 UNIT/ML 1 ML VIAL IV PRN (18:51)
--- NOTE | 2020-08-26 19:22 | CT ---
EXAMINATION TYPE: CT chest wo con DATE OF EXAM: 08/26/2020 COMPARISON: 11/06/2017. HISTORY: SOB CT DLP: 472.6 mGycm. Automated Exposure Control for Dose Reduction was Utilized. TECHNIQUE: CT scan of the thorax is performed without IV contrast. FINDINGS: LUNGS: There is bilateral diffuse moderate peripheral based, patchy ground glass opacities. There i s no pleural effusion or pneumothorax seen. MEDIASTINUM: Lack of IV contrast is noted to limit evaluation for mediastinal and especially hilar ad enopathy. There are no definitive greater than 1 cm hilar or mediastinal lymph nodes. No cardiomega ly or pericardial effusion is seen. There is advanced coronary and moderate thoracic aorta atheroscle rotic disease. OTHER: Questionable mild right hydronephrosis. IMPRESSION: Bilateral moderate patchy groundglass opacities, concerning for Covid pneumonia. Questionable mild right hydronephrosis.
[2020-08-26] MEDS: HEPARIN SOD,PORK IN 0.45% NACL 25,000 UNIT in 0.45% NACL 1 250ML.BAG IV SCH (19:28)
[2020-08-26] MEDS ORDERED: PIPERACILLIN-TAZOBACTAM 3.375 GM in SODIUM CHLORIDE 0.9% 100 ML IVPB STA (21:13)
[2020-08-26] MEDS ORDERED: ONDANSETRON 4 MG/2 ML VIAL IVP PRN (21:26)
[2020-08-26] MEDS ORDERED: NALOXONE 0.4 MG/ML 1 ML VIAL IV PRN (21:26)
[2020-08-26] MEDS: PANTOPRAZOLE 40 MG/10 ML VIAL IV SCH (22:26)
[2020-08-27] MEDS: SODIUM CHLORIDE 0.9% 1,000 ML IV SCH ×2 (02:42→20:07)
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
[2020-08-27] MEDS ORDERED: MAG HYDROX/AL HYDROX/SIMETH 30 ML CUP PO PRN (08:15)
[2020-08-27] MEDS ORDERED: BISMUTH SUBSALICYLATE 4,192 MG/240 ML BOTTLE PO PRN (08:15)
[2020-08-27] MEDS ORDERED: NITROGLYCERIN SL TABS 0.4 MG TAB SUBLINGUAL PRN (08:15)
[2020-08-27] MEDS ORDERED: HYDROcodone/APAP 7.5-325MG 1 EACH TAB PO PRN (08:15)
[2020-08-27 08:45] LABS: Basophils # (A) 0.1 k/uL (0-0.2); Basophils % (A) 1 %; Eosinophils # (A) 0.1 k/uL (0-0.7); Eosinophils % (A) 1 %; HCT 45.1 % (39.0-53.0); Lymphocytes # (A) 1.5 k/uL (1.0-4.8); Lymphocytes % (A) 12 %; MCH 26.8 pg (25.0-35.0); MCV 86.4 fL (80.0-100.0); Mean Platelet Volume 9.3; Monocytes % (A) 9 %; Neutrophils # (A) 8.9 k/uL (1.3-7.7); Neutrophils % (A) 76 %; Platelet Count 221 k/uL (150-450); RBC 5.22 m/uL (4.30-5.90); RDW 14.3 % (11.5-15.5); WBC 11.8 k/uL (3.8-10.6)
[2020-08-27 08:55] LABS: Calcium 9.9 mg/dL (8.4-10.2); Potassium 3.6 mmol/L (3.5-5.1)
[2020-08-27] MEDS ORDERED: NON FORMULARY DRUG (Omeprazole [Omeprazole] 20 MG Capsule.Dr) PO SCH (09:00)
[2020-08-27] MEDS: SENNOSIDES-DOCUSATE SODIUM 1 EACH TAB PO SCH ×2 (09:13→20:04)
[2020-08-27] MEDS: CYANOCOBALAMIN 500 MCG TAB PO SCH (09:13)
[2020-08-27] MEDS: MIDODRINE 5 MG TAB PO SCH ×2 (09:13→17:51)
[2020-08-27] MEDS: GABAPENTIN 300 MG CAP PO SCH ×2 (09:13→20:03)
[2020-08-27] MEDS: METOPROLOL TARTRATE 50 MG TAB PO SCH ×2 (09:13→20:04)
[2020-08-27] MEDS: ESCITALOPRAM 10 MG TAB PO SCH (09:13)
[2020-08-27] MEDS: ACETAMINOPHEN TAB 325 MG TAB PO SCH ×3 (09:14→20:06)
[2020-08-27] MEDS: PANTOPRAZOLE 40 MG/10 ML VIAL IV SCH (09:14)
[2020-08-27] MEDS: ASPIRIN 81 MG PO SCH (09:14)
[2020-08-27] MEDS: BUDESONIDE 0.5 MG/2 ML NEBU INHALATION SCH ×2 (10:00→19:50)
--- NOTE | 2020-08-27 10:07 | CDI ---
Documentation Clarification Form Date: 08/27/2020 09:28 AM CDS: Bekah Mcdermott RN, CCDS Admit Date: 08/26/2020 Patient Name: Ashok Panchal ATTENTION: The Clinical Documentation Specialists (CDI) and [facility] Coding Staff appreciate your assistance in clarifying documentation. Please respond to the clarification below the line at the bottom and electronically sign. The CDI & [facility] Coding staff will review the response and follow-up if needed. Please note: Queries are made part of the Legal Health Record. If you have any questions, please contact the author of this message via ITS. Dr. Jorge MD The patient is on home medication of Lasix and Lopressor. The patient is also being treated with the same medications while inpatient. History/Risk Factors: 80-year-old male presents to the ED from [facility] for Hypoxia. Medical History: CAD, CVA, DVT, HLD, HTN, MD Clinical Indicators: VS/Pulse OX 08/26: B/P 135/85; HR 114; Temp 98.8 F; RR 18; SpO2 96% 6L nasal cannula BNP 08/26: 25014 Echocardiogram Results 12/02/19: Moderate concentric left ventricular hypertrophy. Left ventricular systolic function is normal with, an EF between 55-60%. Increased Lap Grade II Diastolic dysfunction. Mild to moderate mitral regurgitation is present. Mild aortic valve sclerosis. Mild aortic valve regurgitation. Moderate tricuspid regurgitation is presents. Moderate pulmonary hypertension. Chest X Ray 08/26: Left basilar infiltrate Treatment: 08/27 Lopressor PO BID; Start 08/28 Lasix PO BID [facility]. In your professional opinion, can you please clarify the diagnosis of the treatment? Chronic Diastolic Heart Failure-this is the correct dx Unable to Determine Other, please specify (Last Revision: November 2017) MTDD
--- NOTE | 2020-08-27 10:26 | CDI ---
Documentation Clarification Form Date: 08/27/2020 10:09 AM CDS: Bekah Mcdermott RN, CCDS Admit Date: 08/26/2020 Patient Name: Ashok Panchal ATTENTION: The Clinical Documentation Specialists (CDI) and [facility] Coding Staff appreciate your assistance in clarifying documentation. Please respond to the clarification below the line at the bottom and electronically sign. The CDI & [facility] Coding staff will review the response and follow-up if needed. Please note: Queries are made part of the Legal Health Record. If you have any questions, please contact the author of this message via ITS. Dr Jorge JARRELL The COVID-19 test obtained on 08/26 was reported as Negative on 08/26. Per H&P 08/27: COVID 19 Patient history/risk factors: 80-year-old male sent to ED by [facility] for Hypoxia. Medical History: COPD, Pulmonary fibrosis, 2 L nasal cannula home oxygen use. Tested positive for COVID last month. Clinical Indicators Patient reported shortness of breath. CTA Chest: Bilateral moderate patchy ground-glass opacities VS in ED Triage08/26: B/P 135/85; HR 114; Temp 98.8 F; RR 18; SpO2 96% 6L nasal cannula Labs 08/26: Wbc 11.6, Neutrophils 9.3, Lymphocytes 0.9, D-dimer 26.71, CRP 143.5, Treatment: Ventolin inhaler, Duoneb, and Pulmicort In order to capture the severity of condition, please clarify the COVID-19 status: False negative, treating for COVID-19 infection-this is the correct dx COVID-19 ruled out Other, please specify (Last Form Revision: October 2019) MTDD
[2020-08-27] MEDS: IPRATROPIUM-ALBUTEROL 3 ML NEB INHALATION PRN ×2 (11:10→19:50)
[2020-08-27] MEDS: ALBUTEROL HFA INHALER INHALATION SCH ×2 (11:25→21:03)
[2020-08-27] MEDS: AMMONIUM LACTATE 12% CREAM 140 GM TUBE TOPICAL SCH ×2 (12:19→20:05)
[2020-08-27] MEDS: HEPARIN SOD,PORK IN 0.45% NACL 25,000 UNIT in 0.45% NACL 1 250ML.BAG IV SCH (12:40)
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
--- NOTE | 2020-08-27 18:37 | US ---
EXAMINATION TYPE: US venous doppler duplex LE DATE OF EXAM: 08/27/2020 4:31 PM COMPARISON: NONE CLINICAL HISTORY: elevated d-dimer. covid positive SIDE PERFORMED: Bilateral TECHNIQUE: The lower extremity deep venous system is examined utilizing real time linear array sonog asa with graded compression, doppler sonography and color-flow sonography. VESSELS IMAGED: Common Femoral Vein Deep Femoral Vein Greater Saphenous Vein * Femoral Vein Popliteal Vein Small Saphenous Vein * Proximal Calf Veins (* superficial vessels) Right Leg: Positive for DVT in right CFV involving the proximal femoral vein and deep femoral vein Left Leg: Negative for DVT IMPRESSION: DVT in the right common femoral vein involving the proximal femoral and deep femoral veins. No DVT in the left lower extremity. Findings were reported to NICO Snider by me at time of dictation.
[2020-08-27] MEDS: CYCLOBENZAPRINE 10 MG TAB PO SCH (20:03)
[2020-08-27] MEDS: ATORVASTATIN 80 MG TAB PO SCH (20:04)
[2020-08-27] MEDS: traZODone HCL 100 MG TAB PO SCH (20:04)
[2020-08-27] MEDS: TAMSULOSIN 0.4 MG CAP.ER.24H PO SCH (20:04)
[2020-08-27] MEDS: MELATONIN 5 MG TABLET PO SCH (20:04)
[2020-08-28] MEDS: ACETAMINOPHEN TAB 325 MG TAB PO SCH ×4 (05:11→19:58)
[2020-08-28] MEDS: GABAPENTIN 300 MG CAP PO SCH ×3 (06:22→19:59)
[2020-08-28] MEDS: FUROSEMIDE 20 MG TAB PO SCH (06:22)
[2020-08-28 06:30] LABS: HGB 12.1 gm/dL (13.0-17.5); Hypochromasia Slight; MCH 28.4 pg (25.0-35.0); MCHC 32.7 g/dL (31.0-37.0); MCV 86.9 fL (80.0-100.0); Mean Platelet Volume 9.5; Platelet Count 183 k/uL (150-450); RBC 4.26 m/uL (4.30-5.90); RDW 14.3 % (11.5-15.5)
[2020-08-28 06:54] LABS: Albumin 3.2 g/dL (3.5-5.0); Calcium 9.4 mg/dL (8.4-10.2); Potassium 4.2 mmol/L (3.5-5.1); Total Bilirubin 0.5 mg/dL (0.2-1.3); Total Protein 6.3 g/dL (6.3-8.2)
--- NOTE | 2020-08-28 08:13 | P.PN ---
Subjective Principal diagnosis: Femoral DVT This is a continue pressure 80-year-old white male essentially admitted for hypoxic respiratory failure with the patient is now found to have DVT of the femoral artery. Continue heparin. We will most likely wean him to oral agent. Objective - Vital Signs Vital signs: Vital Signs Temp 97.5 F L 08/28/20 07:25 Pulse 82 08/28/20 07:25 Resp 18 08/28/20 07:25 BP 104/60 08/28/20 07:25 Pulse Ox 96 08/28/20 07:25 Intake & Output 08/27/20 08/28/20 08/28/20 18:59 06:59 18:59 Intake Total 943.146 604.114 Output Total 1800 500 Balance -856.854 104.114 Weight 89.5 kg Intake: IV 20 Invasive Line 1 20 Intake, IV Titration 113.146 129.114 Amount Heparin Sod,Pork in 0.45% 113.146 129.114 NaCl 25,000 unit In 0.45 % NaCl 1 250ml.bag @ 18 UNITS/KG/HR 16.068 mls/hr IV .[id number] [facility] Rx#: [id number] Oral 810 475 Output: Urine 1800 500 Uretheral (Gamble) 900 Other: Voiding Method Indwelling Catheter Indwelling Catheter # Voids 1 # Bowel Movements 0 1 - Constitutional General appearance: Present: average body habitus - EENT Eyes: Absent: abnormal pupil - Neck Neck: Absent: lymphadenopathy - Respiratory Respiratory: bilateral: diminished - Cardiovascular Rhythm: regular Heart sounds: normal: S1, S2 Abnormal Heart Sounds: Absent: S3 Gallop - Gastrointestinal General gastrointestinal: Present: soft. Absent: tenderness - Integumentary Integumentary: Absent: cellulitis - Labs CBC & Chem 7: 08/28/20 05:59 08/28/20 05:59 Labs: Abnormal Lab Results - Last 24 Hours (Table) 08/27/20 08/27/20 08/27/20 Range/Units 08:19 08:19 16:02 WBC 11.8 H (3.8-10.6) k/uL RBC (4.30-5.90) m/uL Hgb (13.0-17.5) gm/dL Hct (39.0-53.0) % Neutrophils # 8.9 H (1.3-7.7) k/uL APTT 74.6 H (22.0-30.0) sec Chloride (98-107) mmol/L BUN 79 H (9-20) mg/dL Creatinine 1.81 H (0.66-1.25) mg/dL Glucose 122 H (74-99) mg/dL AST (17-59) U/L ALT (4-49) U/L Albumin (3.5-5.0) g/dL 08/27/20 08/28/20 08/28/20 Range/Units 21:49 05:59 05:59 WBC 11.0 H (3.8-10.6) k/uL RBC 4.26 L (4.30-5.90) m/uL Hgb 12.1 L (13.0-17.5) gm/dL Hct 37.0 L (39.0-53.0) % Neutrophils # (1.3-7.7) k/uL APTT 109.4 H* (22.0-30.0) sec Chloride 111 H (98-107) mmol/L BUN 79 H (9-20) mg/dL Creatinine 1.56 H (0.66-1.25) mg/dL Glucose 129 H (74-99) mg/dL AST 133 H (17-59) U/L ALT 86 H (4-49) U/L Albumin 3.2 L (3.5-5.0) g/dL 08/28/20 Range/Units 05:59 WBC (3.8-10.6) k/uL RBC (4.30-5.90) m/uL Hgb (13.0-17.5) gm/dL Hct (39.0-53.0) % Neutrophils # (1.3-7.7) k/uL APTT 70.8 H (22.0-30.0) sec Chloride (98-107) mmol/L BUN (9-20) mg/dL Creatinine (0.66-1.25) mg/dL Glucose (74-99) mg/dL AST (17-59) U/L ALT (4-49) U/L Albumin (3.5-5.0) g/dL Assessment and Plan (1) COVID-19 Current Visit: Yes Status: Acute Code(s): U07.1 - COVID-19 SNOMED Code(s): 597717884 (2) Hypoxia Current Visit: Yes Status: Acute Code(s): R09.02 - HYPOXEMIA SNOMED Code(s): 971546793 (3) GERD (gastroesophageal reflux disease) Current Visit: No Status: Acute Code(s): K21.9 - GASTRO-ESOPHAGEAL REFLUX DISEASE WITHOUT ESOPHAGITIS SNOMED Code(s): 547722187 (4) Interstitial lung disease Current Visit: No Status: Acute Code(s): J84.9 - INTERSTITIAL PULMONARY DISEASE, UNSPECIFIED SNOMED Code(s): 409167718 Plan: Most likely weaned to oral agent today. This is dependent on insurance coverage. Otherwise, check CBC and CMP in a.m. Appreciate pulmonology input. Dr. Garcia's group Route covering for the weekend.
[2020-08-28] MEDS: HEPARIN SOD,PORK IN 0.45% NACL 25,000 UNIT in 0.45% NACL 1 250ML.BAG IV SCH (08:42)
[2020-08-28] MEDS: ASPIRIN 81 MG PO SCH (08:43)
[2020-08-28] MEDS: CYANOCOBALAMIN 500 MCG TAB PO SCH (08:43)
[2020-08-28] MEDS: SENNOSIDES-DOCUSATE SODIUM 1 EACH TAB PO SCH ×2 (08:43→19:59)
[2020-08-28] MEDS: ESCITALOPRAM 10 MG TAB PO SCH (08:44)
[2020-08-28] MEDS: MIDODRINE 5 MG TAB PO SCH ×3 (08:44→16:11)
[2020-08-28] MEDS: AMMONIUM LACTATE 12% CREAM 140 GM TUBE TOPICAL SCH ×2 (08:44→19:58)
[2020-08-28] MEDS: METOPROLOL TARTRATE 50 MG TAB PO SCH ×2 (08:44→20:03)
[2020-08-28] MEDS: PANTOPRAZOLE 40 MG/10 ML VIAL IV SCH (08:44)
[2020-08-28] MEDS: ALBUTEROL HFA INHALER INHALATION SCH ×3 (09:32→20:31)
[2020-08-28] MEDS: BUDESONIDE 0.5 MG/2 ML NEBU INHALATION SCH ×2 (09:32→20:31)
--- NOTE | 2020-08-28 14:47 | P.PN ---
Subjective Progress Note Date: 08/28/20 Principal diagnosis: Acute hypoxic respiratory failure, weakness, COVID 19 This is a 80-year-old all white male patient of Dr. Lenard Patel, who is a resident of [facility], with past medical history of multiple medical problems including coronary artery disease with stenting, previous history of CVA/TIA, hypertension, hyperlipidemia, previous myocardial infarction, pulmonary fibrosis, and wounds on his left leg with history of MRSA infection. Patient had a positive COVID 19 test last month. Patient is a poor historian, unclear what his baseline mental status is. Patient was brought in to the emergency department for evaluation of hypoxemia, with a pulse ox on the 80s, and [facility] the patient was brought in for evaluation. Patient is complaining of shortness of breath however not any more than usual, no chest discomfort. He required 6 L of oxygen in the emergency department upon arrival. His lab data revealed d-dimer of 26.71, he had elevated troponin of 1.210. He was started on heparin infu diana. Renal function is impaired, with B1 of 79 and creatinine of 2.17. His chest x-ray shows some moderate left basilar opacity, no significant pleural effusion or pneumothorax. CT chest showed bilateral moderate patchy groundglass opacities concerning for COVID pneumonia, questionable mild right hydronephrosis. EKG showed sinus tachycardia with nonspecific ST and T-wave abnormality with consideration of lateral ischemia. The patient resting comfortably in bed, in no acute distress, he is on 3 L of oxygen is pulse ox 96%, his been afebrile. Is not complaining of any respiratory distress right now. ProBNP was elevated at 10,500, CRP is elevated at 143.5, his repeat COVID 19 PCR was negative On 08/28/2020 patient seen in follow-up on selective care unit, looks comfortable, breathing comfortably currently on 3 L of oxygen pulse ox 100%, no fever or chills, hemodynamically has been stable, remains on heparin, his lower extremity Dopplers revealed DVT in the right common femoral vein involving the proximal femoral vein and deep femoral vein. Left side was negative for DVT. No worsening dyspnea, no cough, no hemoptysis no chest pain. No acute events overnight, his labs have been reviewed, showing until, 11, hemoglobin of 12.1, sodium is 1.2, potassium is 4.2, chloride was 111, B1 17 and creatinine is 1.56. Patient continues on breathing treatments and when necessary albuterol. Objective - Vital Signs Vital signs: Vital Signs Temp 97.4 F L 08/28/20 12:00 Pulse 72 08/28/20 12:00 Resp 20 08/28/20 13:03 BP 110/74 08/28/20 12:00 Pulse Ox 100 08/28/20 12:00 Intake & Output 08/27/20 08/28/20 08/28/20 18:59 06:59 18:59 Intake Total 943.146 604.114 613.925 Output Total 1800 500 Balance -856.854 104.114 613.925 Weight 89.5 kg Intake: IV 20 Invasive Line 1 20 Intake, IV Titration 113.146 129.114 13.925 Amount Heparin Sod,Pork in 0.45% 113.146 129.114 13.925 NaCl 25,000 unit In 0.45 % NaCl 1 250ml.bag @ 18 UNITS/KG/HR 16.068 mls/hr IV .[id number] [facility] Rx#: [id number] Oral 810 475 600 Output: Urine 1800 500 Uretheral (Gamble) 900 Other: Voiding Method Indwelling Catheter Indwelling Catheter Indwelling Catheter # Voids 1 # Bowel Movements 0 1 2 - Exam GENERAL EXAM: Alert, very pleasant, 80-year-old white female, on 3 L of oxygen a pulse ox of 96 %, comfortable in no apparent distress. HEAD: Normocephalic/atraumatic. EYES: Normal reaction of pupils, equal size. Conjunctiva pink, sclera white. NOSE: Clear with pink turbinates. THROAT: No erythema or exudates. NECK: No masses, no JVD, no thyroid enlargement, no adenopathy. CHEST: No chest wall deformity. Symmetrical expansion. LUNGS: Equal air entry with no crackles, wheeze, rhonchi or dullness. CVS: Regular rate and rhythm, normal S1 and S2, no gallops, no murmurs, no rubs ABDOMEN: Soft, nontender. No hepatosplenomegaly, normal bowel sounds, no guard ing or rigidity. EXTREMITIES: No clubbing, no edema, no cyanosis, 2+ pulses and upper and lower extremities. MUSCULOSKELETAL: Muscle strength and tone normal. Chronic wounds on the left leg which is covered with dressing SPINE: No scoliosis or deformity SKIN: No rashes CENTRAL NERVOUS SYSTEM: Alert and oriented -3. No focal deficits, tone is normal in all 4 extremities. PSYCHIATRIC: Alert and oriented -3. Appropriate affect. Intact judgment and insight. - Labs CBC & Chem 7: 08/28/20 05:59 08/28/20 05:59 Labs: Abnormal Lab Results - Last 24 Hours (Table) 08/27/20 08/27/20 08/28/20 Range/Units 16:02 21:49 05:59 WBC 11.0 H (3.8-10.6) k/uL RBC 4.26 L (4.30-5.90) m/uL Hgb 12.1 L (13.0-17.5) gm/dL Hct 37.0 L (39.0-53.0) % APTT 74.6 H 109.4 H* (22.0-30.0) sec Chloride (98-107) mmol/L BUN (9-20) mg/dL Creatinine (0.66-1.25) mg/dL Glucose (74-99) mg/dL AST (17-59) U/L ALT (4-49) U/L Albumin (3.5-5.0) g/dL 08/28/20 08/28/20 08/28/20 Range/Units 05:59 05:59 12:12 WBC (3.8-10.6) k/uL RBC (4.30-5.90) m/uL Hgb (13.0-17.5) gm/dL Hct (39.0-53.0) % APTT 70.8 H 45.8 H (22.0-30.0) sec Chloride 111 H (98-107) mmol/L BUN 79 H (9-20) mg/dL Creatinine 1.56 H (0.66-1.25) mg/dL Glucose 129 H (74-99) mg/dL AST 133 H (17-59) U/L ALT 86 H (4-49) U/L Albumin 3.2 L (3.5-5.0) g/dL Assessment and Plan Plan: Assessment: #1. Acute on chronic hypoxic respiratory failure, possibly related to recent h istory of COVId 19 infection or possibility of pulmonary embolism based on elevated d-dimer. Patient has underlying pulmonary fibrosis, is normally on oxygen, and is normally short of breath. No fever or chills, CT chest without contrast showing bilateral moderate patchy groundglass opacities. Repeat Covid 19 test was negative #2. Elevated d-dimer, related to right common femoral vein DVT, patient is currently on heparin, will be switched to Eliquis #3. Elevated troponin, possibly related to acute hypoxia, possibly a pulmonary embolism, cardiology is following, patient has been started on heparin infusion #4. Positive COVID19 test last month #5. History of coronary artery disease with previous stenting #6. Pulmonary fibrosis #7. 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 We can DC the heparin infusion, wean FiO2, continue with bronchodilators, from pulmonary perspective patient Will be discharged back to ECF when cleared by medicine. I performed a history & physical examination of the patient and discussed their management with my nurse practitioner, Eli Ayala. I reviewed the nurse practitioner's note and agree with the documented findings and plan of care. Lung sounds are positive for diminished breath sounds The findings and the impression was discussed with the patient. I attest to the documentation by the nurse practitioner. Time with Patient: Less than 30
[2020-08-28] MEDS: ATORVASTATIN 80 MG TAB PO SCH (19:58)
[2020-08-28] MEDS: traZODone HCL 100 MG TAB PO SCH (19:58)
[2020-08-28] MEDS: MELATONIN 5 MG TABLET PO SCH (19:59)
[2020-08-28] MEDS: CYCLOBENZAPRINE 10 MG TAB PO SCH (19:59)
[2020-08-28] MEDS: APIXABAN 5 MG TAB PO SCH (19:59)
[2020-08-28] MEDS: TAMSULOSIN 0.4 MG CAP.ER.24H PO SCH (19:59)
[2020-08-28] MEDS: SODIUM CHLORIDE 0.9% 1,000 ML IV SCH (20:04)
[2020-08-28] MEDS: IPRATROPIUM-ALBUTEROL 3 ML NEB INHALATION PRN (20:31)
[2020-08-28] MEDS ORDERED: APIXABAN 5 MG TAB PO SCH ×2 (21:00)
[2020-08-29] MEDS: ACETAMINOPHEN TAB 325 MG TAB PO SCH ×4 (01:56→20:53)
[2020-08-29] MEDS: GABAPENTIN 300 MG CAP PO SCH ×3 (06:09→20:53)
[2020-08-29] MEDS: FUROSEMIDE 20 MG TAB PO SCH (06:09)
[2020-08-29] MEDS: PANTOPRAZOLE 40 MG TABLET PO SCH (06:10)
[2020-08-29 07:31] LABS: Hypochromasia Slight; MCH 27.3 pg (25.0-35.0); MCHC 31.6 g/dL (31.0-37.0); MCV 86.7 fL (80.0-100.0); Mean Platelet Volume 8.9; Platelet Count 200 k/uL (150-450); RBC 4.38 m/uL (4.30-5.90); RDW 14.5 % (11.5-15.5); WBC 9.4 k/uL (3.8-10.6)
[2020-08-29 07:41] LABS: Albumin 3.1 g/dL (3.5-5.0); Calcium 9.4 mg/dL (8.4-10.2); Potassium 4.4 mmol/L (3.5-5.1); Total Bilirubin 0.5 mg/dL (0.2-1.3); Total Protein 6.4 g/dL (6.3-8.2)
[2020-08-29] MEDS: IPRATROPIUM-ALBUTEROL 3 ML NEB INHALATION PRN ×2 (08:22→21:13)
[2020-08-29] MEDS: BUDESONIDE 0.5 MG/2 ML NEBU INHALATION SCH ×2 (08:22→21:13)
[2020-08-29] MEDS: ALBUTEROL HFA INHALER INHALATION SCH ×3 (08:22→21:13)
[2020-08-29] MEDS: METOPROLOL TARTRATE 50 MG TAB PO SCH ×2 (09:16→20:53)
[2020-08-29] MEDS: CYANOCOBALAMIN 500 MCG TAB PO SCH (09:16)
[2020-08-29] MEDS: ESCITALOPRAM 10 MG TAB PO SCH (09:16)
[2020-08-29] MEDS: MIDODRINE 5 MG TAB PO SCH ×3 (09:16→17:50)
[2020-08-29] MEDS: APIXABAN 5 MG TAB PO SCH ×2 (09:16→20:53)
[2020-08-29] MEDS: ASPIRIN 81 MG PO SCH (09:16)
[2020-08-29] MEDS: SENNOSIDES-DOCUSATE SODIUM 1 EACH TAB PO SCH ×2 (09:16→20:53)
[2020-08-29] MEDS: MEGESTROL 400 MG/10 ML CUP PO SCH (11:09)
[2020-08-29] MEDS: AMMONIUM LACTATE 12% CREAM 140 GM TUBE TOPICAL SCH ×2 (11:09→20:58)
--- NOTE | 2020-08-29 13:44 | P.PN ---
Subjective Progress Note Date: 08/29/20 Principal diagnosis: Acute hypoxic respiratory failure secondary to CoVID 19 pneumonia This is a 80-year-old all white male patient of Dr. Lenard Patel, who is a resident of [facility], with past medical history of multiple medical problems including coronary artery disease with stenting, previous history of CVA/TIA, hypertension, hyperlipidemia, previous myocardial infarction, pulmonary fibrosis, and wounds on his left leg with history of MRSA infection. Patient had a positive COVID 19 test last month. Patient is a poor historian, unclear what his baseline mental status is. Patient was brought in to the emergency department for evaluation of hypoxemia, with a pulse ox on the 80s, and his FiO2 requirement continue to increase at the longterm, the [facility] ient was brought in for evaluation. Patient is complaining of shortness of breath however not any more than usual, no chest discomfort. He required 6 L of oxygen in the emergency department upon arrival. His lab data revealed d-dimer of 26.71, he had elevated troponin of 1.210. He was started on heparin infusion. Renal function is impaired, with B1 of 79 and creatinine of 2.17. His chest x-ray shows some moderate left basilar opacity, no significant pleural effusion or pneumothorax. CT chest showed bilateral moderate patchy groundglass opacities concerning for COVID pneumonia, questionable mild right hydronephrosis. EKG showed sinus tachycardia with nonspecific ST and T-wave abnormality with consideration of lateral ischemia. The patient resting comfortably in bed, in no acute distress, he is on 3 L of oxygen is pulse ox 96%, his been afebrile. Is not complaining of any respiratory distress right now. ProBNP was elevated at 10,500, CRP is elevated at 143.5, his repeat COVID 19 PCR was negative On 08/28/2020 patient seen in follow-up on selective care unit, looks comfortab le, breathing comfortably currently on 3 L of oxygen pulse ox 100%, no fever or chills, hemodynamically has been stable, remains on heparin, his lower extremity Dopplers revealed DVT in the right common femoral vein involving the proximal femoral vein and deep femoral vein. Left side was negative for DVT. No worsening dyspnea, no cough, no hemoptysis no chest pain. No acute events overnight, his labs have been reviewed, showing until, 11, hemoglobin of 12.1, sodium is 1.2, potassium is 4.2, chloride was 111, B1 17 and creatinine is 1.56. Patient continues on breathing treatments and when necessary albuterol. The patient is seen today 08/29/2020 follow-up on the selective care unit. He is confused. Alert. Afebrile. Maintaining O2 saturations in the 90s on room air. White count 9.4. Hemoglobin 12.0. Sodium 143. Potassium 4.4. Creatinine 1.36. AST 117. ALT 102. Glucose 117. He remains on bronchodilators, anticoagulated with Eliquis for DVT. Objective - Vital Signs Vital signs: Vital Signs Temp 97.5 F L 08/29/20 12:30 Pulse 77 08/29/20 12:30 Resp 20 08/29/20 12:30 BP 95/65 08/29/20 12:30 Pulse Ox 90 L 08/29/20 12:30 Intake & Output 08/28/20 08/29/20 08/29/20 18:59 06:59 18:59 Intake Total 813.925 650 10 Output Total 700 300 750 Balance 113.925 350 -740 Weight 89.5 kg 88 kg Intake: IV 10 Invasive Line 2 10 Intake, IV Titration 13.925 Amount Heparin Sod,Pork in 0.45% 13.925 NaCl 25,000 unit In 0.45 % NaCl 1 250ml.bag @ 18 UNITS/KG/HR 16.068 mls/hr IV .[id number] [facility] Rx#: [id number] Oral 800 650 Output: Urine 700 300 750 Uretheral (Gamble) 700 750 Other: Voiding Method Indwelling Catheter Indwelling Catheter Indwelling Catheter # Bowel Movements 2 1 - Exam GENERAL EXAM: Alert, 80-year-old male patient, on room air with a pulse ox of 90 %, comfortable in no apparent distress. HEAD: Normocephalic/atraumatic. EYES: Normal reaction of pupils, equal size. Conjunctiva pink, sclera white. NOSE: Clear with pink turbinates. THROAT: No erythema or exudates. NECK: No masses, no JVD, no thyroid enlargement, no adenopathy. CHEST: No chest wall deformity. Symmetrical expansion. LUNGS: Equal air entry with few scattered rhonchi. CVS: Regular rate and rhythm, normal S1 and S2, no gallops, no murmurs, no rubs ABDOMEN: Soft, nontender. No hepatosplenomegaly, normal bowel sounds, no guarding or rigidity. EXTREMITIES: No clubbing, no edema, no cyanosis, 2+ pulses and upper and lower extremities. MUSCULOSKELETAL: Muscle strength and tone normal. Chronic wounds on the left leg which is covered with dressing SPINE: No scoliosis or deformity SKIN: No rashes CENTRAL NERVOUS SYSTEM: No focal deficits, tone is normal in all 4 extremities. PSYCHIATRIC: Alert. Appropriate affect. Intact judgment and insight. - Labs CBC & Chem 7: 08/29/20 06:58 08/29/20 06:58 Labs: Abnormal Lab Results - Last 24 Hours (Table) 08/29/20 08/29/20 Range/Units 06:58 06:58 Hgb 12.0 L (13.0-17.5) gm/dL Hct 38.0 L (39.0-53.0) % Chloride 112 H (98-107) mmol/L BUN 66 H (9-20) mg/dL Creatinine 1.36 H (0.66-1.25) mg/dL Glucose 117 H (74-99) mg/dL AST 117 H (17-59) U/L ALT 102 H (4-49) U/L Albumin 3.1 L (3.5-5.0) g/dL Assessment and Plan Assessment: 1 Acute on chronic hypoxic respiratory failure, possibly related to recent history of COVId 19 infection or possibility of pulmonary embolism based on elevated d-dimer. Patient has underlying pulmonary fibrosis, is normally on oxygen, and is normally short of breath. No fever or chills, CT chest without contrast showing bilateral moderate patchy groundglass opacities. Repeat Covid 19 test was negative 2 Elevated d-dimer, related to right common femoral vein DVT, patient is Eliquis 3 Elevated troponin, possibly related to acute hypoxia, possibly a pulmonary embolism, cardiology is following 4 Positive COVID19 test last month 5 History of coronary artery disease with previous stenting 6 Pulmonary fibrosis 7 History of left leg chronic wounds with history of MRSA infections Plan: The patient was seen and evaluated by Dr. Stone Transition to Eliquis Continue bronchodilators Return to ECF once cleared medically I, the cosigning physician, performed a history & physical examination of the patient. Lungs sounds with few crackles in the posterior bases. Maintaining good O2 saturations in the 90s on room air. I discussed the assessment and plan of care with my nurse practitioner, Rhea Dial. I attest to the above note as dictated by her.
[2020-08-29] MEDS: MELATONIN 5 MG TABLET PO SCH (20:52)
[2020-08-29] MEDS: traZODone HCL 100 MG TAB PO SCH (20:52)
[2020-08-29] MEDS: CYCLOBENZAPRINE 10 MG TAB PO SCH (20:53)
[2020-08-29] MEDS: TAMSULOSIN 0.4 MG CAP.ER.24H PO SCH (20:53)
[2020-08-29] MEDS: ATORVASTATIN 80 MG TAB PO SCH (20:53)
[2020-08-29] MEDS: SODIUM CHLORIDE 0.9% 1,000 ML IV SCH (20:59)
--- NOTE | 2020-08-29 22:12 | P.PN ---
Subjective This is a pleasant 80 years old male with multiple medical problems was admitted from snf for hypoxia and respiratory symptoms, he was recently diagnosed with covid about one month ago. And the presentation was noted to have elevated d-dimer and ultrasound of the right leg was positive for DVT and patient was started on Eliquis, patient breathing is currently improving and he is saturating 90 cm oxygen via nasal cannula. Patient is not dyspneic or tachypneic. Also patient with acute kidney injury with creatinine is trending down from 2.12 down to 1.3 today with baseline around 0.9. Patient looks somewhat confused may be a component of metabolic encephalopathy Patient is kind of poor historian and is not eating well, as per staff and bedside patient states that he did not like the food and denies trying to find food selection that the patient likes to see he will be able to eat or not. Objective - Vital Signs Vital signs: Vital Signs Temp 98.1 F 08/29/20 17:09 Pulse 74 08/29/20 17:09 Resp 19 08/29/20 17:09 BP 133/53 08/29/20 17:09 Pulse Ox 94 L 08/29/20 17:09 Intake & Output 08/28/20 08/29/20 08/29/20 18:59 06:59 18:59 Intake Total 813.925 650 60 Output Total 700 300 750 Balance 113.925 350 -690 Weight 89.5 kg 88 kg Intake: IV 10 Invasive Line 2 10 Intake, IV Titration 13.925 Amount Heparin Sod,Pork in 0.45% 13.925 NaCl 25,000 unit In 0.45 % NaCl 1 250ml.bag @ 18 UNITS/KG/HR 16.068 mls/hr IV .[id number] [facility] Rx#: [id number] Oral 800 650 50 Output: Urine 700 300 750 Uretheral (Gamble) 700 750 Other: Voiding Method Indwelling Catheter Indwelling Catheter Indwelling Catheter # Bowel Movements 2 1 - Exam GENERAL: The patient is awake however he does not answer clearly and looks somewhat confused., not in any acute distress. Well developed, well nourished. HEENT: Pupils are round and equally reacting to light. EOMI. No scleral icterus. No conjunctival pallor. Normocephalic, atraumatic. No pharyngeal erythema. No thyromegaly. CARDIOVASCULAR: S1 and S2 present. No murmurs, rubs, or gallops. PULMONARY: Chest is clear to auscultation, no wheezing or crackles. ABDOMEN: Soft, nontender, nondistended, normoactive bowel sounds. No palpable organomegaly. MUSCULOSKELETAL: No joint swelling or deformity. EXTREMITIES: No cyanosis, clubbing, or pedal edema. NEUROLOGICAL: Gross neurological examination did not reveal any focal deficits. SKIN: No rashes. no petechiae. - Labs CBC & Chem 7: 08/29/20 06:58 08/29/20 06:58 Labs: Abnormal Lab Results - Last 24 Hours (Table) 08/29/20 08/29/20 Range/Units 06:58 06:58 Hgb 12.0 L (13.0-17.5) gm/dL Hct 38.0 L (39.0-53.0) % Chloride 112 H (98-107) mmol/L BUN 66 H (9-20) mg/dL Creatinine 1.36 H (0.66-1.25) mg/dL Glucose 117 H (74-99) mg/dL AST 117 H (17-59) U/L ALT 102 H (4-49) U/L Albumin 3.1 L (3.5-5.0) g/dL Assessment and Plan Assessment: Possible acute pulmonary embolism based on elevated d-dimer and DVT Right leg DVT Acute hypoxic respiratory failure, present on admission. Improving Acute kidney injury, improving Metabolic encephalopathy secondary to above Elevated troponin with, could be related to renal injury. Its chronic and patient denies chest pain and he is not dyspneic. Also has an aspirin and Eliquis Hyperlipidemia History of CVA/TIA COPD, not an active issue Hypertension Benign prostatic hypertrophy History of coronary artery disease
[2020-08-30] MEDS: ACETAMINOPHEN TAB 325 MG TAB PO SCH ×4 (04:37→21:21)
[2020-08-30] MEDS: FUROSEMIDE 20 MG TAB PO SCH (06:04)
[2020-08-30] MEDS: GABAPENTIN 300 MG CAP PO SCH ×3 (06:04→21:00)
[2020-08-30 06:35] LABS: Basophils # (A) 0.1 k/uL (0-0.2); Basophils % (A) 1 %; Eosinophils # (A) 0.3 k/uL (0-0.7); Eosinophils % (A) 4 %; HCT 39.6 % (39.0-53.0); HGB 12.3 gm/dL (13.0-17.5); Hypochromasia Slight; Lymphocytes # (A) 2.4 k/uL (1.0-4.8); Lymphocytes % (A) 28 %; MCH 27.2 pg (25.0-35.0); MCHC 31.1 g/dL (31.0-37.0); MCV 87.4 fL (80.0-100.0); Monocytes # (A) 0.6 k/uL (0-1.0); Monocytes % (A) 7 %; Neutrophils # (A) 5.1 k/uL (1.3-7.7); Neutrophils % (A) 59 %; Platelet Count 215 k/uL (150-450); RBC 4.53 m/uL (4.30-5.90); RDW 14.7 % (11.5-15.5); WBC 8.7 k/uL (3.8-10.6)
[2020-08-30] MEDS: IPRATROPIUM-ALBUTEROL 3 ML NEB INHALATION PRN ×2 (07:35→20:31)
[2020-08-30] MEDS: BUDESONIDE 0.5 MG/2 ML NEBU INHALATION SCH ×2 (07:35→20:31)
[2020-08-30] MEDS: ALBUTEROL HFA INHALER INHALATION SCH ×3 (07:38→20:31)
[2020-08-30 09:38] LABS: African American GFR (CKD) 54.2 (60.0-200.0); Anion Gap 9.2 mmol/L (4.00-12.00); BUN/Creat Ratio 42.86 Ratio (12.00-20.00); Calcium 9.5 mg/dL (8.7-10.3); Carbon Dioxide 26.8 mmol/L (21.6-31.8); Non-African American GFR(CKD) 46.8 (60.0-200.0); Potassium 3.8 mmol/L (3.5-5.5)
[2020-08-30] MEDS: METOPROLOL TARTRATE 50 MG TAB PO SCH ×2 (10:38→21:21)
[2020-08-30] MEDS: MEGESTROL 400 MG/10 ML CUP PO SCH (10:38)
[2020-08-30] MEDS: ESCITALOPRAM 10 MG TAB PO SCH (10:39)
[2020-08-30] MEDS: MIDODRINE 5 MG TAB PO SCH ×4 (10:39→18:27)
[2020-08-30] MEDS: ASPIRIN 81 MG PO SCH (10:39)
[2020-08-30] MEDS: CYANOCOBALAMIN 500 MCG TAB PO SCH (10:40)
[2020-08-30] MEDS: PANTOPRAZOLE 40 MG TABLET PO SCH (10:40)
[2020-08-30] MEDS: SENNOSIDES-DOCUSATE SODIUM 1 EACH TAB PO SCH ×2 (10:40→21:21)
[2020-08-30] MEDS: APIXABAN 5 MG TAB PO SCH ×2 (10:40→21:21)
[2020-08-30] MEDS: AMMONIUM LACTATE 12% CREAM 140 GM TUBE TOPICAL SCH ×2 (10:41→21:21)
--- NOTE | 2020-08-30 12:40 | P.PN ---
Subjective This is a pleasant 80 years old male with multiple medical problems was [facility] for hypoxia and respiratory symptoms, he was recently diagnosed with covid about one month ago. And the presentation was noted to have elevated d-dimer and ultrasound of the right leg was positive for DVT and patient was started on Eliquis, patient breathing is currently improving and he is saturating 90 cm oxygen via nasal cannula. Patient is not dyspneic or tachypneic. Also patient with acute kidney injury with creatinine is trending down from 2.12 down to 1.3 today with baseline around 0.9. Patient looks somewhat confused may be a component of metabolic encephalopathy Patient is kind of poor historian and is not eating well, as per staff and bedside patient states that he did not like the food and denies trying to find food selection that the patient likes to see he will be able to eat or not. 08/30/2020 Patient lying In bed not in respiratory distress but becomes tachypneic while talking and his oxygen dropped during the night to high 80s. Currently he is saturating 95% on 2 L/m oxygen via nasal cannula. No chest pain or discomfort or heaviness He has some pain on swallowing, his mouth dry and there is no evidence of thr ush. Swallow evaluation is ordered. Also will check hemoglobin A1c However when we asked him he states he has no difficulty swallowing and he finished 50% of his systemic. He is on Eliquis and aspirin. Objective - Vital Signs Vital signs: Vital Signs Temp 98.3 F 08/30/20 04:31 Pulse 80 08/30/20 07:51 Resp 19 08/30/20 07:45 BP 104/70 08/30/20 10:30 Pulse Ox 95 08/30/20 04:31 Intake & Output 08/29/20 08/30/20 08/30/20 18:59 06:59 18:59 Intake Total 60 710 Output Total 750 Balance -690 710 Intake: IV 10 Invasive Line 2 10 Oral 50 710 Output: Urine 750 Uretheral (Gamble) 750 Other: Voiding Method Indwelling Catheter Indwelling Catheter Indwelling Catheter - Exam GENERAL: The patient is awake however he does not answer clearly and looks somewhat confused., not in any acute distress. Well developed, well nourished. HEENT: Pupils are round and equally reacting to light. EOMI. No scleral icterus. No conjunctival pallor. Normocephalic, atraumatic. No pharyngeal erythema. No thyromegaly. CARDIOVASCULAR: S1 and S2 present. No murmurs, rubs, or gallops. PULMONARY: Chest is clear to auscultation, no wheezing or crackles. ABDOMEN: Soft, nontender, nondistended, normoactive bowel sounds. No palpable organomegaly. MUSCULOSKELETAL: No joint swelling or deformity. EXTREMITIES: No cyanosis, clubbing, or pedal edema. NEUROLOGICAL: Gross neurological examination did not reveal any focal deficits. SKIN: No rashes. no petechiae. - Labs CBC & Chem 7: 08/30/20 06:20 08/30/20 06:20 Labs: Abnormal Lab Results - Last 24 Hours (Table) 08/30/20 08/30/20 Range/Units 06:20 06:20 Hgb 12.3 L (13.0-17.5) gm/dL BUN 60.0 H (9.0-27.0) mg/dL Est GFR (CKD-EPI)AfAm 54.2 L (60.0-200.0) Est GFR (CKD-EPI)NonAf 46.8 L (60.0-200.0) BUN/Creatinine Ratio 42.86 H (12.00-20.00) Ratio Assessment and Plan Assessment: Possible acute pulmonary embolism based on elevated d-dimer and DVT Right leg DVT Acute hypoxic respiratory failure, present on admission. Improving Acute kidney injury, improving Metabolic encephalopathy secondary to above Elevated troponin with, could be related to renal injury. Its chronic and patient denies chest pain and he is not dyspneic. Also has an aspirin and Eliquis Hyperlipidemia History of CVA/TIA COPD, not an active issue Hypertension Benign prostatic hypertrophy History of coronary artery disease Plan: This is a pleasant 80 E. old male who was admitted with covert pneumonia with acute hypoxic respiratory failure, currently he is improved and pulmonary team cleared him for discharge, we are going to check his swallow evaluation. Also check hemoglobin A1c. Continue with aspirin and Eliquis. We will continue with Protonix Labs and medication were reviewed.. Continue same treatment. Continue with symptomatic treatment. Resume home medication. Monitor lytes and vitals. DVT and GI prophylaxis. Further recommendationsas per clinical course of the patient DVT prophylaxis: Eliquis GI Prophylaxis: Ppi Prognosis is guarded Dr. Patel will resume the care of the patient tomorrow
--- NOTE | 2020-08-30 14:24 | P.PN ---
Subjective Progress Note Date: 08/30/20 Principal diagnosis: Acute hypoxic respiratory failure secondary to CoVID 19 pneumonia This is a 80-year-old all white male patient of Dr. Lenard Patel, who is a resident of [facility] on [facility], with past medical history of multiple medical problems including coronary artery disease with stenting, previous history of CVA/TIA, hypertension, hyperlipidemia, previous myocardial infarction, pulmonary fibrosis, and wounds on his left leg with history of MRSA infection. Patient had a positive COVID 19 test last month. Patient is a poor historian, unclear what his baseline mental status is. Patient was brought in to the emergency department for evaluation of hypoxemia, with a pulse ox on the 80s, and his FiO2 requirement continue to increase at the senior care, the [facility] ient was brought in for evaluation. Patient is complaining of shortness of breath however not any more than usual, no chest discomfort. He required 6 L of oxygen in the emergency department upon arrival. His lab data revealed d-dimer of 26.71, he had elevated troponin of 1.210. He was started on heparin infusion. Renal function is impaired, with B1 of 79 and creatinine of 2.17. His chest x-ray shows some moderate left basilar opacity, no significant pleural effusion or pneumothorax. CT chest showed bilateral moderate patchy groundglass opacities concerning for COVID pneumonia, questionable mild right hydronephrosis. EKG showed sinus tachycardia with nonspecific ST and T-wave abnormality with consideration of lateral ischemia. The patient resting comfortably in bed, in no acute distress, he is on 3 L of oxygen is pulse ox 96%, his been afebrile. Is not complaining of any respiratory distress right now. ProBNP was elevated at 10,500, CRP is elevated at 143.5, his repeat COVID 19 PCR was negative On 08/28/2020 patient seen in follow-up on selective care unit, looks comfortab le, breathing comfortably currently on 3 L of oxygen pulse ox 100%, no fever or chills, hemodynamically has been stable, remains on heparin, his lower extremity Dopplers revealed DVT in the right common femoral vein involving the proximal femoral vein and deep femoral vein. Left side was negative for DVT. No worsening dyspnea, no cough, no hemoptysis no chest pain. No acute events overnight, his labs have been reviewed, showing until, 11, hemoglobin of 12.1, sodium is 1.2, potassium is 4.2, chloride was 111, B1 17 and creatinine is 1.56. Patient continues on breathing treatments and when necessary albuterol. The patient is seen today 08/29/2020 follow-up on the selective care unit. He is confused. Alert. Afebrile. Maintaining O2 saturations in the 90s on room air. White count 9.4. Hemoglobin 12.0. Sodium 143. Potassium 4.4. Creatinine 1.36. AST 117. ALT 102. Glucose 117. He remains on bronchodilators, anticoagulated with Eliquis for DVT. The patient is seen today 08/30/2020 follow-up on the regular medical floor. He is awake, alert, confused. Maintaining O2 saturations in the 90s on 2 L/m per nasal cannula. He is afebrile. Hemodynamically stable. White count 8.7. Hemoglobin 12.3. Sodium 134. Potassium 3.8. Creatinine 1.4. Endocrine regulated with Eliquis. Objective - Vital Signs Vital signs: Vital Signs Temp 98 F 08/30/20 11:00 Pulse 80 08/30/20 07:51 Resp 16 08/30/20 11:00 BP 106/70 08/30/20 11:00 Pulse Ox 92 L 08/30/20 11:00 Intake & Output 08/29/20 08/30/20 08/30/20 18:59 06:59 18:59 Intake Total 60 710 Output Total 750 Balance -690 710 Intake: IV 10 Invasive Line 2 10 Oral 50 710 Output: Urine 750 Uretheral (Gamble) 750 Other: Voiding Method Indwelling Catheter Indwelling Catheter Indwelling Catheter - Exam GENERAL EXAM: Alert, 80-year-old male patient, on 2 L/m per nasal cannula with a pulse ox of 92%, comfortable in no apparent distress. HEAD: Normocephalic/atraumatic. EYES: Normal reaction of pupils, equal size. Conjunctiva pink, sclera white. NOSE: Clear with pink turbinates. THROAT: No erythema or exudates. NECK: No masses, no JVD, no thyroid enlargement, no adenopathy. CHEST: No chest wall deformity. Symmetrical expansion. LUNGS: Equal air entry with few scattered rhonchi. CVS: Regular rate and rhythm, normal S1 and S2, no gallops, no murmurs, no rubs ABDOMEN: Soft, nontender. No hepatosplenomegaly, normal bowel sounds, no guarding or rigidity. EXTREMITIES: No clubbing, no edema, no cyanosis, 2+ pulses and upper and lower extremities. MUSCULOSKELETAL: Muscle strength and tone normal. Chronic wounds on the left leg which is covered with dressing SPINE: No scoliosis or deformity SKIN: No rashes CENTRAL NERVOUS SYSTEM: No focal deficits, tone is normal in all 4 extremities. PSYCHIATRIC: Alert. Unable to assess, confused - Labs CBC & Chem 7: 08/30/20 06:20 08/30/20 06:20 Labs: Abnormal Lab Results - Last 24 Hours (Table) 08/30/20 08/30/20 Range/Units 06:20 06:20 Hgb 12.3 L (13.0-17.5) gm/dL BUN 60.0 H (9.0-27.0) mg/dL Est GFR (CKD-EPI)AfAm 54.2 L (60.0-200.0) Est GFR (CKD-EPI)NonAf 46.8 L (60.0-200.0) BUN/Creatinine Ratio 42.86 H (12.00-20.00) Ratio Assessment and Plan Assessment: 1 Acute on chronic hypoxic respiratory failure, possibly related to recent history of COVId 19 infection or possibility of pulmonary embolism based on elevated d-dimer. Patient has underlying pulmonary fibrosis, is normally on oxygen, and is normally short of breath. No fever or chills, CT chest without contrast showing bilateral moderate patchy groundglass opacities. Repeat Covid 19 test was negative 2 Elevated d-dimer, related to right common femoral vein DVT, patient is on Eliquis 3 Elevated troponin, possibly related to acute hypoxia, possibly a pulmonary embolism, cardiology is following 4 Positive COVID19 test last month 5 History of coronary artery disease with previous stenting 6 Pulmonary fibrosis 7 History of left leg chronic wounds with history of MRSA infections Plan: The patient was seen and evaluated by Dr. Stone Anticoagulated with Eliquis Continue bronchodilators Return to ECF once cleared medically I, the cosigning physician, performed a history & physical examination of the patient. Lungs sounds with few crackles in the posterior bases. Maintaining good O2 saturations in the 90s on 2 L/m per nasal cannula. I discussed the assessment and plan of care with my nurse practitioner, Rhea Dial. I attest to the above note as dictated by her.
[2020-08-30] MEDS: TAMSULOSIN 0.4 MG CAP.ER.24H PO SCH (21:21)
[2020-08-30] MEDS: MELATONIN 5 MG TABLET PO SCH (21:21)
[2020-08-30] MEDS: CYCLOBENZAPRINE 10 MG TAB PO SCH (21:21)
[2020-08-30] MEDS: ATORVASTATIN 80 MG TAB PO SCH (21:21)
[2020-08-31] MEDS: traZODone HCL 100 MG TAB PO SCH ×2 (00:21→21:12)
[2020-08-31] MEDS: SODIUM CHLORIDE 0.9% 1,000 ML IV SCH ×2 (00:26→22:24)
[2020-08-31] MEDS: ACETAMINOPHEN TAB 325 MG TAB PO SCH ×4 (03:56→21:15)
[2020-08-31] MEDS: FUROSEMIDE 20 MG TAB PO SCH (05:40)
[2020-08-31] MEDS: GABAPENTIN 300 MG CAP PO SCH ×3 (05:40→21:11)
[2020-08-31 06:44] LABS: Basophils # (A) 0.1 k/uL (0-0.2); Basophils % (A) 0 %; Eosinophils # (A) 0.4 k/uL (0-0.7); Eosinophils % (A) 3 %; HCT 41.9 % (39.0-53.0); Hypochromasia Slight; Lymphocytes # (A) 1.9 k/uL (1.0-4.8); Lymphocytes % (A) 13 %; MCH 26.7 pg (25.0-35.0); MCHC 31.1 g/dL (31.0-37.0); Mean Platelet Volume 9.6; Monocytes # (A) 0.7 k/uL (0-1.0); Monocytes % (A) 5 %; Neutrophils # (A) 11.1 k/uL (1.3-7.7); Neutrophils % (A) 78 %; Platelet Count 216 k/uL (150-450); RBC 4.87 m/uL (4.30-5.90); RDW 14.9 % (11.5-15.5); WBC 14.2 k/uL (3.8-10.6)
[2020-08-31] MEDS: ALBUTEROL HFA INHALER INHALATION SCH ×3 (07:53→19:20)
[2020-08-31] MEDS: BUDESONIDE 0.5 MG/2 ML NEBU INHALATION SCH ×2 (07:53→19:18)
--- NOTE | 2020-08-31 08:28 | P.PN ---
Subjective Principal diagnosis: Femoral DVT This is a continue pressure 80-year-old white male essentially admitted for hypoxic respiratory failure with the patient is now found to have DVT of the femoral artery. The patient is now on Eliquis. There is a significant issues regarding oral intake. appreciate dietary input The patient states no significant pain. Objective - Vital Signs Vital signs: Vital Signs Temp 97.0 F L 08/31/20 05:00 Pulse 66 08/31/20 05:00 Resp 20 08/31/20 05:00 BP 112/73 08/31/20 05:00 Pulse Ox 92 L 08/31/20 05:00 Intake & Output 08/30/20 08/31/20 08/31/20 18:59 06:59 18:59 Intake Total 250 120 Output Total 600 Balance 250 -480 Intake: Oral 250 120 Output: Urine 600 Uretheral (Gamble) 300 Other: Voiding Method Indwelling Catheter Indwelling Catheter - Constitutional General appearance: Present: average body habitus - EENT Eyes: Absent: abnormal pupil - Neck Neck: Absent: lymphadenopathy - Respiratory Respiratory: bilateral: CTA - Cardiovascular Rhythm: regular Heart sounds: normal: S1, S2 Abnormal Heart Sounds: Absent: S3 Gallop - Gastrointestinal General gastrointestinal: Present: soft. Absent: tenderness - Integumentary Integumentary: Absent: cellulitis - Labs CBC & Chem 7: 08/31/20 05:51 08/30/20 06:20 Labs: Abnormal Lab Results - Last 24 Hours (Table) 08/30/20 08/31/20 Range/Units 06:20 05:51 WBC 14.2 H (3.8-10.6) k/uL Neutrophils # 11.1 H (1.3-7.7) k/uL BUN 60.0 H (9.0-27.0) mg/dL Est GFR (CKD-EPI)AfAm 54.2 L (60.0-200.0) Est GFR (CKD-EPI)NonAf 46.8 L (60.0-200.0) BUN/Creatinine Ratio 42.86 H (12.00-20.00) Ratio Assessment and Plan (1) COVID-19 Current Visit: Yes Status: Acute Code(s): U07.1 - COVID-19 SNOMED Code(s): 939331270 (2) Hypoxia Current Visit: Yes Status: Acute Code(s): R09.02 - HYPOXEMIA SNOMED Code(s): 315201610 (3) GERD (gastroesophageal reflux disease) Current Visit: No Status: Acute Code(s): K21.9 - GASTRO-ESOPHAGEAL REFLUX DISEASE WITHOUT ESOPHAGITIS SNOMED Code(s): 606929997 (4) Interstitial lung disease Current Visit: No Status: Acute Code(s): J84.9 - INTERSTITIAL PULMONARY DISEASE, UNSPECIFIED SNOMED Code(s): 375502817 Plan: Most likely weaned to oral agent today. This is dependent on insurance coverage. Otherwise, check CBC and CMP in a.m.. Will also check pre-albumin in a.m. Element of poor by mouth intake. Patient is currently on Megace. Appreciate dietary input. Now on Eliquis for DVT.
[2020-08-31 09:25] LABS: African American GFR (CKD) 65.3 (60.0-200.0); Anion Gap 8.3 mmol/L (4.00-12.00); BUN/Creat Ratio 37.5 Ratio (12.00-20.00); Calcium 9.5 mg/dL (8.7-10.3); Carbon Dioxide 29.7 mmol/L (21.6-31.8); Non-African American GFR(CKD) 56.4 (60.0-200.0); Potassium 3.9 mmol/L (3.5-5.5)
[2020-08-31] MEDS: PANTOPRAZOLE 40 MG TABLET PO SCH (09:46)
[2020-08-31] MEDS: ASPIRIN 81 MG PO SCH (09:46)
[2020-08-31] MEDS: METOPROLOL TARTRATE 50 MG TAB PO SCH ×2 (09:46→21:11)
[2020-08-31] MEDS: APIXABAN 5 MG TAB PO SCH ×2 (09:46→21:12)
[2020-08-31] MEDS: SENNOSIDES-DOCUSATE SODIUM 1 EACH TAB PO SCH ×2 (09:46→21:11)
[2020-08-31] MEDS: CYANOCOBALAMIN 500 MCG TAB PO SCH (09:47)
[2020-08-31] MEDS: ESCITALOPRAM 10 MG TAB PO SCH (09:48)
[2020-08-31] MEDS: MIDODRINE 5 MG TAB PO SCH ×3 (09:48→17:26)
[2020-08-31] MEDS: MEGESTROL 400 MG/10 ML CUP PO SCH (09:48)
[2020-08-31] MEDS: AMMONIUM LACTATE 12% CREAM 140 GM TUBE TOPICAL SCH ×2 (09:57→21:33)
--- NOTE | 2020-08-31 13:50 | P.PN ---
Subjective Progress Note Date: 08/31/20 This is a 80-year-old all white male patient of Dr. Lenard Patel, who is a resident of [facility] on the [facility], with past medical history of multiple medical problems including coronary artery disease with stenting, previous history of CVA/TIA, hypertension, hyperlipidemia, previous myocardial infarction, pulmonary fibrosis, and wounds on his left leg with history of MRSA infection. Patient had a positive COVID 19 test last month. Patient is a poor historian, On 08/31/2020, the patient is doing well. He is stable. Resting comfortably in bed. Confused at baseline. He is a half-way resident with multiple medical problems including CAD, stenting, CVA, TIA, hypertension, hyperlipidemia, and pulmonary fibrosis. Furthermore, the patient was infected with Covid 19 last month from which she recovered. Was further diagnosed having a right common femoral DVT in the right lower extremity in addition to a proximal femoral vein and the femoral vein thrombosis. The patient is currently on Eliquis and the patient is doing well. No bleeding complications. No other significant events otherwise for now. Objective - Vital Signs Vital signs: Vital Signs Temp 97.8 F 08/31/20 11:00 Pulse 60 08/31/20 11:00 Resp 17 08/31/20 11:00 BP 94/57 08/31/20 11:00 Pulse Ox 93 L 08/31/20 11:00 Intake & Output 08/30/20 08/31/20 08/31/20 18:59 06:59 18:59 Intake Total 250 120 Output Total 600 Balance 250 -480 Intake: Oral 250 120 Output: Urine 600 Uretheral (Gamble) 300 Other: Voiding Method Indwelling Catheter Indwelling Catheter Indwelling Catheter - Exam GENERAL EXAM: Alert, 80-year-old male patient, on 2 L/m per nasal cannula with a pulse ox of 92%, comfortable in no apparent distress. HEAD: Normocephalic/atraumatic. EYES: Normal reaction of pupils, equal size. Conjunctiva pink, sclera white. NOSE: Clear with pink turbinates. THROAT: No erythema or exudates. NECK: No masses, no JVD, no thyroid enlargement, no adenopathy. CHEST: No chest wall deformity. Symmetrical expansion. LUNGS: Equal air entry with few scattered rhonchi. CVS: Regular rate and rhythm, normal S1 and S2, no gallops, no murmurs, no rubs ABDOMEN: Soft, nontender. No hepatosplenomegaly, normal bowel sounds, no g uarding or rigidity. EXTREMITIES: No clubbing, no edema, no cyanosis, 2+ pulses and upper and lower extremities. MUSCULOSKELETAL: Muscle strength and tone normal. Chronic wounds on the left leg which is covered with dressing SPINE: No scoliosis or deformity SKIN: No rashes CENTRAL NERVOUS SYSTEM: No focal deficits, tone is normal in all 4 extremities. PSYCHIATRIC: Alert. Unable to assess, confused - Labs CBC & Chem 7: 08/31/20 05:51 08/31/20 05:57 Labs: Abnormal Lab Results - Last 24 Hours (Table) 08/31/20 08/31/20 Range/Units 05:51 05:57 WBC 14.2 H (3.8-10.6) k/uL Neutrophils # 11.1 H (1.3-7.7) k/uL BUN 45.0 H (9.0-27.0) mg/dL Est GFR (CKD-EPI)NonAf 56.4 L (60.0-200.0) BUN/Creatinine Ratio 37.50 H (12.00-20.00) Ratio Glucose 116 H (70-110) mg/dL Assessment and Plan Plan: 1 Acute on chronic hypoxic respiratory failure, possibly related to recent history of COVId 19 infection or possibility of pulmonary embolism based on elevated d-dimer. Patient has underlying pulmonary fibrosis, is normally on oxygen, and is normally short of breath. No fever or chills, CT chest without contrast showing bilateral moderate patchy groundglass opacities. Repeat Covid 19 test was negative 2 Elevated d-dimer, related to right common femoral vein DVT, patient is on Eliquis 3 Elevated troponin, possibly related to acute hypoxia, possibly a pulmonary embolism, cardiology is following 4 Positive COVID19 test last month 5 History of coronary artery disease with previous stenting 6 Pulmonary fibrosis 7 History of left leg chronic wounds with history of MRSA infections Plan: Overall pulmonary status is stable. Patient has recovered from his coronavirus Covid 19 infection. The patient is being anticoagulated. I will suggest continuing the antibiotic ventilation with Eliquis. Continue rest of the treatment. He is on oxygen 2 L per minute nasal cannula.
[2020-08-31 14:56] LABS: Hemoglobin A1C 6.7 % (4.0-6.0)
[2020-08-31] MEDS: ATORVASTATIN 80 MG TAB PO SCH (21:11)
[2020-08-31] MEDS: TAMSULOSIN 0.4 MG CAP.ER.24H PO SCH (21:11)
[2020-08-31] MEDS: CYCLOBENZAPRINE 10 MG TAB PO SCH (21:11)
[2020-08-31] MEDS: MELATONIN 5 MG TABLET PO SCH (21:12)
[2020-09-01] MEDS: ACETAMINOPHEN TAB 325 MG TAB PO SCH ×4 (02:05→20:47)
[2020-09-01 05:32] LABS: Basophils # (A) 0.1 k/uL (0-0.2); Basophils % (A) 1 %; Eosinophils # (A) 0.5 k/uL (0-0.7); Eosinophils % (A) 4 %; HCT 39.1 % (39.0-53.0); HGB 12.6 gm/dL (13.0-17.5); Hypochromasia Slight; Lymphocytes # (A) 1.4 k/uL (1.0-4.8); Lymphocytes % (A) 12 %; MCH 27.7 pg (25.0-35.0); MCHC 32.1 g/dL (31.0-37.0); MCV 86.2 fL (80.0-100.0); Mean Platelet Volume 9.3; Monocytes # (A) 0.7 k/uL (0-1.0); Monocytes % (A) 6 %; Neutrophils # (A) 9.1 k/uL (1.3-7.7); Neutrophils % (A) 77 %; Platelet Count 232 k/uL (150-450); RBC 4.53 m/uL (4.30-5.90); WBC 11.8 k/uL (3.8-10.6)
[2020-09-01] MEDS: GABAPENTIN 300 MG CAP PO SCH ×3 (05:42→20:47)
[2020-09-01] MEDS: FUROSEMIDE 20 MG TAB PO SCH (05:42)
--- NOTE | 2020-09-01 08:41 | P.PN ---
Subjective Principal diagnosis: Femoral DVT This is a continue pressure 80-year-old white male essentially admitted for hypoxic respiratory failure with the patient is now found to have DVT of the femoral artery. The patient is now on Eliquis. There is a significant issues regarding oral intake. appreciate dietary input The patient states no significant pain. I had a long discussion with the daughter yesterday and they are deciding whe ther they'll will request evaluation for feeding tube given his poor by mouth intake and cognitive state. Objective - Vital Signs Vital signs: Vital Signs Temp 98.4 F 09/01/20 04:46 Pulse 70 09/01/20 04:46 Resp 20 09/01/20 04:46 BP 114/61 09/01/20 04:46 Pulse Ox 96 09/01/20 04:46 Intake & Output 08/31/20 09/01/20 09/01/20 18:59 06:59 18:59 Intake Total 340 Output Total 600 325 Balance -600 15 Intake: Oral 340 Output: Urine 600 325 Uretheral (Gamble) 325 Other: Voiding Method Indwelling Catheter Indwelling Catheter # Bowel Movements 0 - Constitutional General appearance: Present: average body habitus - Neck Neck: Absent: lymphadenopathy - Respiratory Respiratory: bilateral: CTA - Cardiovascular Rhythm: regular Heart sounds: normal: S1, S2 Abnormal Heart Sounds: Absent: S3 Gallop - Gastrointestinal General gastrointestinal: Absent: soft - Integumentary Integumentary: Absent: cellulitis - Labs CBC & Chem 7: 09/01/20 04:54 08/31/20 05:57 Labs: Abnormal Lab Results - Last 24 Hours (Table) 08/31/20 08/31/20 09/01/20 Range/Units 05:51 05:57 04:54 WBC 11.8 H (3.8-10.6) k/uL Hgb 12.6 L (13.0-17.5) gm/dL Neutrophils # 9.1 H (1.3-7.7) k/uL BUN 45.0 H (9.0-27.0) mg/dL Est GFR (CKD-EPI)NonAf 56.4 L (60.0-200.0) BUN/Creatinine Ratio 37.50 H (12.00-20.00) Ratio Glucose 116 H (70-110) mg/dL Hemoglobin A1c 6.7 H (4.0-6.0) % Assessment and Plan (1) COVID-19 Current Visit: Yes Status: Acute Code(s): U07.1 - COVID-19 SNOMED Code(s): 600136277 (2) Hypoxia Current Visit: Yes Status: Acute Code(s): R09.02 - HYPOXEMIA SNOMED Code(s): 533003968 (3) GERD (gastroesophageal reflux disease) Current Visit: No Status: Acute Code(s): K21.9 - GASTRO-ESOPHAGEAL REFLUX DISEASE WITHOUT ESOPHAGITIS SNOMED Code(s): 041990012 (4) Interstitial lung disease Current Visit: No Status: Acute Code(s): J84.9 - INTERSTITIAL PULMONARY DISEASE, UNSPECIFIED SNOMED Code(s): 729099589 Plan: Otherwise, check CBC and CMP in a.m.. Will also check pre-albumin in a.m. Element of poor by mouth intake. Patient is currently on Megace. Await family decision for surgical evaluation for possible feeding tube. Appreciate dietary input. Now on Eliquis for DVT.
[2020-09-01] MEDS: ALBUTEROL HFA INHALER INHALATION SCH ×3 (08:46→21:18)
[2020-09-01] MEDS: BUDESONIDE 0.5 MG/2 ML NEBU INHALATION SCH ×2 (08:47→21:15)
[2020-09-01] MEDS: ASPIRIN 81 MG PO SCH (09:15)
[2020-09-01] MEDS: CYANOCOBALAMIN 500 MCG TAB PO SCH (09:15)
[2020-09-01] MEDS: MIDODRINE 5 MG TAB PO SCH ×3 (09:15→17:38)
[2020-09-01] MEDS: ESCITALOPRAM 10 MG TAB PO SCH (09:15)
[2020-09-01] MEDS: METOPROLOL TARTRATE 50 MG TAB PO SCH ×2 (09:15→20:47)
[2020-09-01] MEDS: APIXABAN 5 MG TAB PO SCH ×2 (09:15→20:47)
[2020-09-01] MEDS: PANTOPRAZOLE 40 MG TABLET PO SCH (09:16)
[2020-09-01] MEDS: MEGESTROL 400 MG/10 ML CUP PO SCH (09:16)
[2020-09-01] MEDS: SENNOSIDES-DOCUSATE SODIUM 1 EACH TAB PO SCH ×2 (09:16→20:47)
[2020-09-01] MEDS: AMMONIUM LACTATE 12% CREAM 140 GM TUBE TOPICAL SCH ×2 (09:36→23:28)
[2020-09-01 09:54] LABS: African American GFR (CKD) 81.4 (60.0-200.0); Albumin 3.4 g/dL (3.80-4.90); Albumin/Globulin Ratio 1.55 (1.60-3.17); Anion Gap 9.4 mmol/L (4.00-12.00); Carbon Dioxide 25.6 mmol/L (21.6-31.8); Globulin 2.2 g/dL (1.6-3.3); Non-African American GFR(CKD) 70.3 (60.0-200.0); Potassium 4.2 mmol/L (3.5-5.5); Total Bilirubin 0.4 mg/dL (0.3-1.2); Total Protein 5.6 g/dL (6.2-8.2)
--- NOTE | 2020-09-01 13:08 | P.PN ---
Subjective Progress Note Date: 09/01/20 Principal diagnosis: Acute hypoxic respiratory failure, weakness, COVID 19 This is a 80-year-old all white male patient of Dr. Lenard Patel, who is a resident of [facility] on [facility], with past medical history of multiple medical problems including coronary artery disease with stenting, previous history of CVA/TIA, hypertension, hyperlipidemia, previous myocardial infarction, pulmonary fibrosis, and wounds on his left leg with history of MRSA infection. Patient had a positive COVID 19 test last month. Patient is a poor historian, unclear what his baseline mental status is. Patient was brought in to the emergency department for evaluation of hypoxemia, with a pulse ox on the 80s, and [facility], the patient was brought in for evaluation. Patient is complaining of shortness of breath however not any more than usual, no chest discomfort. He required 6 L of oxygen in the emergency department upon arrival. His lab data revealed d-dimer of 26.71, he had elevated troponin of 1.210. He was started on heparin infu diana. Renal function is impaired, with B1 of 79 and creatinine of 2.17. His chest x-ray shows some moderate left basilar opacity, no significant pleural effusion or pneumothorax. CT chest showed bilateral moderate patchy groundglass opacities concerning for COVID pneumonia, questionable mild right hydronephrosis. EKG showed sinus tachycardia with nonspecific ST and T-wave abnormality with consideration of lateral ischemia. The patient resting comfortably in bed, in no acute distress, he is on 3 L of oxygen is pulse ox 96%, his been afebrile. Is not complaining of any respiratory distress right now. ProBNP was elevated at 10,500, CRP is elevated at 143.5, his repeat COVID 19 PCR was negative On 08/28/2020 patient seen in follow-up on selective care unit, looks comfortable, breathing comfortably currently on 3 L of oxygen pulse ox 100%, no fever or chills, hemodynamically has been stable, remains on heparin, his lower extremity Dopplers revealed DVT in the right common femoral vein involving the proximal femoral vein and deep femoral vein. Left side was negative for DVT. No worsening dyspnea, no cough, no hemoptysis no chest pain. No acute events overnight, his labs have been reviewed, showing until, 11, hemoglobin of 12.1, sodium is 1.2, potassium is 4.2, chloride was 111, B1 17 and creatinine is 1.56. Patient continues on breathing treatments and when necessary albuterol. On 09/01/2020 patient seen in follow-up on the medical floor, today she is anxious, he is yelling out, but he is easily redirected , he is fairly cooperative, he is currently on 3 L of oxygen his pulse ox is 92-93%, he denies any worsening dyspnea, lung sounds reveal some fine rales scattered bilaterally, no significant cough, no wheezing or congestion, no complaints of chest pain, he is on Eliquis for evidence of right lower extremity DVT, no acute events overnight, he is tolerating oral intake, discharge planning is in progress for discharge to long-term care facility today Objective - Vital Signs Vital signs: Vital Signs Temp 98.2 F 09/01/20 11:00 Pulse 77 09/01/20 11:00 Resp 18 09/01/20 11:00 BP 99/60 09/01/20 11:00 Pulse Ox 89 L 09/01/20 11:00 Intake & Output 08/31/20 09/01/20 09/01/20 18:59 06:59 18:59 Intake Total 340 Output Total 600 325 Balance -600 15 Intake: Oral 340 Output: Urine 600 325 Uretheral (Gamble) 325 Other: Voiding Method Indwelling Catheter Indwelling Catheter Indwelling Catheter # Bowel Movements 0 - Exam GENERAL EXAM: Alert, very pleasant, 80-year-old white female, on 3 L of oxygen a pulse ox of 93 %, comfortable in no apparent distress. HEAD: Normocephalic/atraumatic. EYES: Normal reaction of pupils, equal size. Conjunctiva pink, sclera white. NOSE: Clear with pink turbinates. THROAT: No erythema or exudates. NECK: No masses, no JVD, no thyroid enlargement, no adenopathy. CHEST: No chest wall deformity. Symmetrical expansion. LUNGS: Equal air entry with no crackles, wheeze, rhonchi or dullness. CVS: Regular rate and rhythm, normal S1 and S2, no gallops, no murmurs, no rubs ABDOMEN: Soft, nontender. No hepatosplenomegaly, normal bowel sounds, no gua rding or rigidity. EXTREMITIES: No clubbing, no edema, no cyanosis, 2+ pulses and upper and lower extremities. MUSCULOSKELETAL: Muscle strength and tone normal. Chronic wounds on the left leg which is covered with dressing SPINE: No scoliosis or deformity SKIN: No rashes CENTRAL NERVOUS SYSTEM: Alert and oriented -3. No focal deficits, tone is normal in all 4 extremities. PSYCHIATRIC: Alert and oriented -3. Appropriate affect. Intact judgment and insight. - Labs CBC & Chem 7: 09/01/20 04:54 09/01/20 04:54 Labs: Abnormal Lab Results - Last 24 Hours (Table) 08/31/20 09/01/20 09/01/20 Range/Units 05:51 04:54 04:54 WBC 11.8 H (3.8-10.6) k/uL Hgb 12.6 L (13.0-17.5) gm/dL Neutrophils # 9.1 H (1.3-7.7) k/uL BUN 37.0 H (9.0-27.0) mg/dL BUN/Creatinine Ratio 37.00 H (12.00-20.00) Ratio Hemoglobin A1c 6.7 H (4.0-6.0) % AST 48 H (14-35) U/L ALT 95 H (10-49) U/L Total Protein 5.6 L (6.2-8.2) g/dL Albumin 3.40 L (3.80-4.90) g/dL Albumin/Globulin Ratio 1.55 L (1.60-3.17) g/dL Prealbumin 13.0 L (18.0-42.0) mg/dL Assessment and Plan Plan: Assessment: #1. Acute on chronic hypoxic respiratory failure, possibly related to recent history of COVId 19 infection or possibility of pulmonary embolism based on elevated d-dimer. Patient has underlying pulmonary fibrosis, is normally on o xygen, and is normally short of breath. No fever or chills, CT chest without contrast showing bilateral moderate patchy groundglass opacities. Repeat Covid 19 test was negative #2. Elevated d-dimer, related to right common femoral vein DVT, patient is currently on heparin, will be switched to Eliquis #3. Elevated troponin, possibly related to acute hypoxia, possibly a pulmonary embolism, cardiology is following, patient has been started on heparin infusion #4. Positive COVID19 test last month #5. History of coronary artery disease with previous stenting #6. Pulmonary fibrosis #7. History of left leg chronic wounds with history of MRSA infections Plan: Continue with oral anticoagulation, patient has been started on Eliquis. There is stable, he continues on 3 L of oxygen, wean FiO2 to keep O2 sat at or above 90%. No worsening dyspnea, he is awake and alert, he is confused, but He worsening dyspnea, no complaints of chest pain, no hemoptysis, will from pulmonary perspective, discharge planning is in progress for discharge to long- term care facility today I performed a history & physical examination of the patient and discussed their management with my nurse practitioner, Eli Ayala. I reviewed the nurse practitioner's note and agree with the documented findings and plan of care. Lung sounds are positive for diminished breath sounds The findings and the impression was discussed with the patient. I attest to the documentation by the nurse practitioner. Time with Patient: Less than 30
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
[2020-09-01] MEDS ORDERED: LORazepam 0.5 MG TAB PO PRN (18:44)
[2020-09-01] MEDS: CYCLOBENZAPRINE 10 MG TAB PO SCH (20:46)
[2020-09-01] MEDS: MELATONIN 5 MG TABLET PO SCH (20:47)
[2020-09-01] MEDS: traZODone HCL 100 MG TAB PO SCH (20:47)
[2020-09-01] MEDS: ATORVASTATIN 80 MG TAB PO SCH (20:47)
[2020-09-01] MEDS: TAMSULOSIN 0.4 MG CAP.ER.24H PO SCH (20:47)
[2020-09-01] MEDS: SODIUM CHLORIDE 0.9% 1,000 ML IV SCH (23:29)
[2020-09-02] MEDS: ACETAMINOPHEN TAB 325 MG TAB PO SCH ×4 (03:38→22:22)
[2020-09-02] MEDS: FUROSEMIDE 20 MG TAB PO SCH (05:38)
[2020-09-02] MEDS: GABAPENTIN 300 MG CAP PO SCH ×3 (05:38→22:24)
[2020-09-02] MEDS: ALBUTEROL HFA INHALER INHALATION SCH ×3 (07:37→19:44)
[2020-09-02] MEDS: BUDESONIDE 0.5 MG/2 ML NEBU INHALATION SCH ×2 (07:38→19:42)
[2020-09-02] MEDS: APIXABAN 5 MG TAB PO SCH ×2 (08:55→22:23)
[2020-09-02] MEDS: ASPIRIN 81 MG PO SCH (08:55)
[2020-09-02] MEDS: MIDODRINE 5 MG TAB PO SCH ×3 (08:56→15:30)
[2020-09-02] MEDS: METOPROLOL TARTRATE 50 MG TAB PO SCH ×2 (08:56→22:24)
[2020-09-02] MEDS: PANTOPRAZOLE 40 MG TABLET PO SCH (08:57)
[2020-09-02] MEDS: CYANOCOBALAMIN 500 MCG TAB PO SCH (08:57)
[2020-09-02] MEDS: SENNOSIDES-DOCUSATE SODIUM 1 EACH TAB PO SCH ×2 (08:58→22:25)
[2020-09-02] MEDS: MEGESTROL 400 MG/10 ML CUP PO SCH (08:58)
[2020-09-02] MEDS: ESCITALOPRAM 10 MG TAB PO SCH (08:58)
[2020-09-02] MEDS: AMMONIUM LACTATE 12% CREAM 140 GM TUBE TOPICAL SCH ×2 (08:59→22:23)
--- NOTE | 2020-09-02 12:36 | P.PN ---
Subjective Progress Note Date: 09/02/20 Principal diagnosis: Acute hypoxic respiratory failure, weakness, COVID 19 This is a 80-year-old all white male patient of Dr. Lenard Patel, who is a resident of [facility] on [facility], with past medical history of multiple medical problems including coronary artery disease with stenting, previous history of CVA/TIA, hypertension, hyperlipidemia, previous myocardial infarction, pulmonary fibrosis, and wounds on his left leg with history of MRSA infection. Patient had a positive COVID 19 test last month. Patient is a poor historian, unclear what his baseline mental status is. Patient was brought in to the emergency department for evaluation of hypoxemia, with a pulse ox on the 80s, and his FiO2 requirement continue to increase at the halfway, the patient was brought in for evaluation. Patient is complaining of shortness of breath however not any more than usual, no chest discomfort. He required 6 L of oxygen in the emergency department upon arrival. His lab data revealed d-dimer of 26.71, he had elevated troponin of 1.210. He was started on heparin infu diana. Renal function is impaired, with B1 of 79 and creatinine of 2.17. His chest x-ray shows some moderate left basilar opacity, no significant pleural effusion or pneumothorax. CT chest showed bilateral moderate patchy groundglass opacities concerning for COVID pneumonia, questionable mild right hydronephrosis. EKG showed sinus tachycardia with nonspecific ST and T-wave abnormality with consideration of lateral ischemia. The patient resting comfortably in bed, in no acute distress, he is on 3 L of oxygen is pulse ox 96%, his been afebrile. Is not complaining of any respiratory distress right now. ProBNP was elevated at 10,500, CRP is elevated at 143.5, his repeat COVID 19 PCR was negative On 08/28/2020 patient seen in follow-up on selective care unit, looks comfortable, breathing comfortably currently on 3 L of oxygen pulse ox 100%, no fever or chills, hemodynamically has been stable, remains on heparin, his lower extremity Dopplers revealed DVT in the right common femoral vein involving the proximal femoral vein and deep femoral vein. Left side was negative for DVT. No worsening dyspnea, no cough, no hemoptysis no chest pain. No acute events overnight, his labs have been reviewed, showing until, 11, hemoglobin of 12.1, sodium is 1.2, potassium is 4.2, chloride was 111, B1 17 and creatinine is 1.56. Patient continues on breathing treatments and when necessary albuterol. On 09/01/2020 patient seen in follow-up on the medical floor, today she is anxious, he is yelling out, but he is easily redirected , he is fairly cooperative, he is currently on 3 L of oxygen his pulse ox is 92-93%, he denies any worsening dyspnea, lung sounds reveal some fine rales scattered bilaterally, no significant cough, no wheezing or congestion, no complaints of chest pain, he is on Eliquis for evidence of right lower extremity DVT, no acute events overnight, he is tolerating oral intake, discharge planning is in progress for discharge to long-term care facility today On 09/02/2020 patient seen in follow-up for floor, he has remained stable from pulmonary perspective, he remains on supplemental oxygen at 3 L, his pulse ox is 95%, hemodynamically stable, denies any worsening dyspnea, his been afebrile, lung sounds reveal diminished breath sounds with bibasilar crackles, patient does have occasional cough, no phlegm production. No new chest x-ray, today's labs have been reviewed, showing white blood cell count of 11.8, hemoglobin is 12.6, sodium is 140, potassium is 4.2, chloride is 105, B1 is 37, creatinine is 1. Patient was started on Eliquis which is currently on hold for the PEG tube insertion today. Objective - Vital Signs Vital signs: Vital Signs Temp 97.8 F 09/02/20 05:59 Pulse 67 09/02/20 05:59 Resp 20 09/02/20 05:59 BP 117/76 09/02/20 05:59 Pulse Ox 95 09/02/20 05:59 Intake & Output 09/01/20 09/02/20 09/02/20 18:59 06:59 18:59 Intake Total 0 Output Total 600 600 Balance -600 -600 Intake: Oral 0 Output: Urine 600 600 Uretheral (Gamble) 300 Other: Voiding Method Indwelling Catheter Indwelling Catheter Indwelling Catheter - Exam GENERAL EXAM: Alert, very pleasant, 80-year-old white female, on 3 L of oxygen a pulse ox of 93 %, comfortable in no apparent distress. HEAD: Normocephalic/atraumatic. EYES: Normal reaction of pupils, equal size. Conjunctiva pink, sclera white. NOSE: Clear with pink turbinates. THROAT: No erythema or exudates. NECK: No masses, no JVD, no thyroid enlargement, no adenopathy. CHEST: No chest wall deformity. Symmetrical expansion. LUNGS: Equal air entry with no crackles, wheeze, rhonchi or dullness. CVS: Regular rate and rhythm, normal S1 and S2, no gallops, no murmurs, no rubs ABDOMEN: Soft, nontender. No hepatosplenomegaly, normal bowel sounds, no guarding or rigidity. EXTREMITIES: No clubbing, no edema, no cyanosis, 2+ pulses and upper and lower extremities. MUSCULOSKELETAL: Muscle strength and tone normal. Chronic wounds on the left leg which is covered with dressing SPINE: No scoliosis or deformity SKIN: No rashes CENTRAL NERVOUS SYSTEM: Alert and oriented -3. No focal deficits, tone is normal in all 4 extremities. PSYCHIATRIC: Alert and oriented -3. Appropriate affect. Intact judgment and insight. - Labs CBC & Chem 7: 09/01/20 04:54 09/01/20 04:54 Assessment and Plan Plan: Assessment: #1. Acute on chronic hypoxic respiratory failure, possibly related to recent history of COVId 19 infection or possibility of pulmonary embolism based on elevated d-dimer. Patient has underlying pulmonary fibrosis, is normally on ox ygen, and is normally short of breath. No fever or chills, CT chest without contrast showing bilateral moderate patchy groundglass opacities. Repeat Covid 19 test was negative #2. Elevated d-dimer, related to right common femoral vein DVT, patient is currently on heparin, will be switched to Eliquis #3. Elevated troponin, possibly related to acute hypoxia, possibly a pulmonary embolism, cardiology is following, patient has been started on heparin infusion #4. Positive COVID19 test last month #5. History of coronary artery disease with previous stenting #6. Pulmonary fibrosis #7. History of left leg chronic wounds with history of MRSA infections Plan: Patient has remained stable from pulmonary perspective, vitals stable overnight, remains on 3 L of oxygen, wean FiO2 O2 sat at or above 90%, no worsening dyspnea, no fever or chills, may resume Eliquis's after the PEG tube insertion. From pulmonary perspective she can be considered for discharge back to the ECF once cleared by medicine I performed a history & physical examination of the patient and discussed their management with my nurse practitioner, Eli Ayala. I reviewed the nurse practitioner's note and agree with the documented findings and plan of care. Lung sounds are positive for diminished breath sounds The findings and the impression was discussed with the patient. I attest to the documentation by the nurse practitioner. Time with Patient: Less than 30
[2020-09-02] MEDS ORDERED: PROPOFOL 10 MG/ML 20 ML VIAL IV ONE (13:31)
[2020-09-02] MEDS ORDERED: LIDOCAINE 1% INJ 10MG/ML (20 ML MDV) ONE (13:31)
[2020-09-02] MEDS ORDERED: LACTATED RINGERS 1,000 ML IV ONE (13:42)
--- NOTE | 2020-09-02 15:31 | P.OP ---
Date of Procedure: 09/02/20 Preoperative Diagnosis: Malnutrition Postoperative Diagnosis: Malnutrition Procedure(s) Performed: EGD with PEG tube placement Anesthesia: MAC Surgeon: French West Pathology: none sent Condition: stable Description of Procedure: The patient's placed on the operative table in the supine position. He received IV sedation. The gastric was patient oropharynx passed in the esophagus into the stomach. Scope then placed through the pylorus. Scope summer back and stomach and the stomach was insufflated with air. After adequate air insufflation the suitable light reflux was seen the anterior abdominal wall. The skin S is 1% local Xylocaine. A skin incision was made with an 11 blade. The needles a place and stomach and the needles and snare. The wire was then placed through the needle. The wire was snared and brought oropharynx. The PEG tube placed overtop the wire and brought down the stomach. The PEG tube was secured at the 3 cm ava. The one-piece bolster was used. Patient top she will was sent to recovery room stable condition.
[2020-09-02] MEDS: TAMSULOSIN 0.4 MG CAP.ER.24H PO SCH (22:23)
[2020-09-02] MEDS: CYCLOBENZAPRINE 10 MG TAB PO SCH (22:24)
[2020-09-02] MEDS: ATORVASTATIN 80 MG TAB PO SCH (22:24)
[2020-09-02] MEDS: MELATONIN 5 MG TABLET PO SCH (22:25)
[2020-09-02] MEDS: traZODone HCL 100 MG TAB PO SCH (22:26)
[2020-09-02] MEDS: SODIUM CHLORIDE 0.9% 1,000 ML IV SCH (22:26)
[2020-09-03] MEDS: ACETAMINOPHEN TAB 325 MG TAB PO SCH ×4 (02:44→20:25)
[2020-09-03] MEDS: GABAPENTIN 300 MG CAP PO SCH ×3 (05:53→20:23)
[2020-09-03] MEDS: FUROSEMIDE 20 MG TAB PO SCH (05:53)
[2020-09-03] MEDS: ALBUTEROL HFA INHALER INHALATION SCH ×3 (07:18→20:49)
[2020-09-03] MEDS: BUDESONIDE 0.5 MG/2 ML NEBU INHALATION SCH ×2 (07:32→20:49)
--- NOTE | 2020-09-03 08:23 | P.PN ---
Subjective Principal diagnosis: Femoral DVT This is a continue pressure 80-year-old white male essentially admitted for hypoxic respiratory failure with the patient is now found to have DVT of the femoral artery. The patient is now on Eliquis. There is a significant issues regarding oral intake. appreciate dietary input The patient states no significant pain. I had a long discussion with the daughter yesterday and they are deciding whe ther they'll will request evaluation for feeding tube given his poor by mouth intake and cognitive state. Objective - Vital Signs Vital signs: Vital Signs Temp 98.3 F 09/03/20 04:27 Pulse 68 09/03/20 04:27 Resp 16 09/02/20 16:12 BP 125/75 09/03/20 04:27 Pulse Ox 95 09/03/20 04:27 Intake & Output 09/02/20 09/03/20 09/03/20 18:59 06:59 18:59 Intake Total 338 60 Output Total 400 545 Balance -62 -485 Weight 88 kg Intake: IV 100 Oral 238 60 Output: Urine 400 545 Uretheral (Gamble) 250 Other: Voiding Method Indwelling Catheter Indwelling Catheter # Bowel Movements 0 - Constitutional General appearance: Present: average body habitus - EENT Eyes: Absent: abnormal pupil - Neck Neck: Absent: lymphadenopathy - Cardiovascular Rhythm: regular Heart sounds: normal: S1, S2 Abnormal Heart Sounds: Absent: S3 Gallop - Gastrointestinal General gastrointestinal: Present: soft. Absent: tenderness - Integumentary Integumentary: Absent: normal - Labs CBC & Chem 7: 09/01/20 04:54 09/01/20 04:54 Assessment and Plan (1) COVID-19 Current Visit: Yes Status: Acute Code(s): U07.1 - COVID-19 SNOMED Code(s): 985130941 (2) Hypoxia Current Visit: Yes Status: Acute Code(s): R09.02 - HYPOXEMIA SNOMED Code(s): 402634648 (3) GERD (gastroesophageal reflux disease) Current Visit: No Status: Acute Code(s): K21.9 - GASTRO-ESOPHAGEAL REFLUX DISEASE WITHOUT ESOPHAGITIS SNOMED Code(s): 916651516 (4) Interstitial lung disease Current Visit: No Status: Acute Code(s): J84.9 - INTERSTITIAL PULMONARY DISEASE, UNSPECIFIED SNOMED Code(s): 286667435 Plan: Otherwise, check CBC and CMP in a.m.. Element of poor by mouth intake. Patient is currently on Megace. Feeding tube to be placed today Appreciate dietary input. Now on Eliquis for DVT. Time with Patient: Less than 30
--- NOTE | 2020-09-03 08:37 | P.DS ---
Providers Date of admission: 08/26/20 21:26 Attending physician: Lenard Patel Consults: 08/26/20 21:28 Consult Physician Routine Consulting Provider: Phoenix Stone Consult Reason/Comments: hypoxia, PE suspected Do you want consulting provider notified?: Already Contacted 09/01/20 13:44 Consult Physician ONCE Consulting Provider: [place] Consult Reason/Comments: feeding tube placement. Family requesting consult Do you want consulting provider notified?: Yes Primary care physician: Lenard Patel - Discharge Diagnosis(es) (1) COVID-19 Current Visit: Yes Status: Acute (2) Hypoxia Current Visit: Yes Status: Acute (3) GERD (gastroesophageal reflux disease) Current Visit: No Status: Acute (4) Interstitial lung disease Current Visit: No Status: Acute Hospital Course: This discharge summary 80-year-old white male essentially admitted for elevated d-dimer found to have femoral deep vein thrombosis with possibility of PE. The patient was stabilized but after observing the patient had significant poor by mouth intake it was a decision made by the family to go ahead and start supplemental tube feeding. We do suspect this is related to advancing age and history of dementia past. The patient will be discharged once stable to follow- up at the [facility]. Patient Condition at Discharge: Fair Plan - Discharge Summary Discharge Rx Participant: Yes New Discharge Prescriptions: New Apixaban [Eliquis] 10 mg PO BID #60 tab Megestrol [Megace] 400 mg PO DAILY #300 ml Continue Nitroglycerin Sl Tabs [Nitrostat] 0.4 mg SUBLINGUAL Q5M PRN PRN Reason: Chest Pain Aspirin EC [Ecotrin Low Dose] 81 mg PO DAILY@0900 Metoprolol Tartrate [Lopressor] 50 mg PO BID@0900,2100 Tamsulosin [Flomax] 0.4 mg PO DAILY@2100 Mag Hydrox/Al Hydrox/Simeth [Maalox] 30 ml PO Q4HR PRN ml PRN Reason: Heartburn Ergocalciferol [Vitamin D2 (DRISDOL)] 50,000 unit PO [id number] Bismuth Subsalicylate [Pepto-Bismol] 524 mg PO Q4H PRN PRN Reason: Gi Upset Ammonium Lactate Cream [Lac-Hydrin 12% Cream] 1 applic TOPICAL BID Ipratropium-Albuterol Nebulize [Duoneb 0.5 mg-3 mg/3 ml Soln] 3 ml INHALATION RT-Q6H PRN PRN Reason: Shortness Of Breath Acetaminophen [Tylenol 8 Hour] 650 mg PO Q6H Albuterol Inhaler [Ventolin Hfa Inhaler] 2 puff INHALATION RT-TID Midodrine HCl [ProAmatine] 10 mg PO TID@0800,1200,1700 Sennosides/Docusate Sodium [Senna Plus 8.6-50 mg Tablet] 1 tab PO BID@0900,2099 Budesonide [Pulmicort] 0.5 mg INHALATION RT-BID@09,2099 Cyanocobalamin [Vitamin B-12] 1,000 mcg PO DAILY@0900 traZODone HCL 200 mg PO HS@2100 Omeprazole 20 mg PO DAILY@0900 Melatonin 10 mg PO HS@2100 Furosemide [Lasix] 20 mg PO DAILY@0600 Atorvastatin [Lipitor] 80 mg PO HS@2100 Gabapentin 600 mg PO HS@2099 Escitalopram [Lexapro] 10 mg PO DAILY@0900 Cyclobenzaprine [Flexeril] 10 mg PO HS@2100 Methyl Salicylate/Menthol [Salonpas Patch] 1 patch TOPICAL DAILY@0900 Gabapentin 300 mg PO BID@0600,1200 #60 cap HYDROcodone/APAP 7.5-325MG [[place] 7.5-325] 1 tab PO Q8H PRN #90 tab PRN Reason: Pain Discontinued Ticagrelor [Brilinta] 90 mg PO BID@0900,2100 Discharge Medication List Nitroglycerin Sl Tabs [Nitrostat] 0.4 mg SUBLINGUAL Q5M PRN 03/26/14 [History] Aspirin EC [Ecotrin Low Dose] 81 mg PO DAILY@0900 12/14/17 [History] Metoprolol Tartrate [Lopressor] 50 mg PO BID@0900,2100 03/20/18 [History] Tamsulosin [Flomax] 0.4 mg PO DAILY@209911/06/18 [History] Mag Hydrox/Al Hydrox/Simeth [Maalox] 30 ml PO Q4HR PRN ml 12/04/19 [Rx] Acetaminophen [Tylenol 8 Hour] 650 mg PO Q6H 08/26/20 [History] Albuterol Inhaler [Ventolin Hfa Inhaler] 2 puff INHALATION RT-TID 08/26/20 [History] Ammonium Lactate Cream [Lac-Hydrin 12% Cream] 1 applic TOPICAL BID 08/26/20 [History] Atorvastatin [Lipitor] 80 mg PO HS@209908/26/20 [History] Bismuth Subsalicylate [Pepto-Bismol] 524 mg PO Q4H PRN 08/26/20 [History] Budesonide [Pulmicort] 0.5 mg INHALATION RT-BID@899,209908/26/20 [History] Cyanocobalamin [Vitamin B-12] 1,000 mcg PO DAILY@89908/26/20 [History] Cyclobenzaprine [Flexeril] 10 mg PO HS@209908/26/20 [History] Ergocalciferol [Vitamin D2 (DRISDOL)] 50,000 unit PO [id number] 08/26/20 [History] Escitalopram [Lexapro] 10 mg PO DAILY@89908/26/20 [History] Furosemide [Lasix] 20 mg PO DAILY@0608/26/20 [History] Gabapentin 600 mg PO HS@209908/26/20 [History] Ipratropium-Albuterol Nebulize [Duoneb 0.5 mg-3 mg/3 ml Soln] 3 ml INHALATION RT-Q6H PRN 08/26/20 [History] Melatonin 10 mg PO HS@209908/26/20 [History] Methyl Salicylate/Menthol [Salonpas Patch] 1 patch TOPICAL DAILY@89908/26/20 [History] Midodrine HCl [ProAmatine] 10 mg PO TID@0800,1200,1700 08/26/20 [History] Omeprazole 20 mg PO DAILY@89908/26/20 [History] Sennosides/Docusate Sodium [Senna Plus 8.6-50 mg Tablet] 1 tab PO BID@899,209908/26/20 [History] traZODone HCL 200 mg PO HS@209908/26/20 [History] Apixaban [Eliquis] 10 mg PO BID #60 tab 09/03/20 [Rx] Gabapentin 300 mg PO BID@0600,1200 #60 cap 09/03/20 [Rx] HYDROcodone/APAP 7.5-325MG [[place] 7.5-325] 1 tab PO Q8H PRN #90 tab 09/03/20 [Rx] Megestrol [Megace] 400 mg PO DAILY #300 ml 09/03/20 [Rx] Follow up Appointment(s)/Referral(s): Lenard Patel MD [Primary Care Provider] - 1 Week Discharge Disposition: TRANSFER TO SNF/ECF
[2020-09-03] MEDS: ASPIRIN 81 MG PO SCH (09:14)
[2020-09-03] MEDS: METOPROLOL TARTRATE 50 MG TAB PO SCH ×2 (09:14→20:24)
[2020-09-03] MEDS: PANTOPRAZOLE 40 MG TABLET PO SCH (09:14)
[2020-09-03] MEDS: MIDODRINE 5 MG TAB PO SCH ×3 (09:15→18:28)
[2020-09-03] MEDS: SENNOSIDES-DOCUSATE SODIUM 1 EACH TAB PO SCH ×2 (09:15→20:24)
[2020-09-03] MEDS: ESCITALOPRAM 10 MG TAB PO SCH (09:15)
[2020-09-03] MEDS: AMMONIUM LACTATE 12% CREAM 140 GM TUBE TOPICAL SCH ×2 (09:17→20:25)
[2020-09-03] MEDS: CYANOCOBALAMIN 500 MCG TAB PO SCH (09:32)
[2020-09-03] MEDS: APIXABAN 5 MG TAB PO SCH (09:32)
[2020-09-03] MEDS: MEGESTROL 400 MG/10 ML CUP PO SCH (10:45)
--- NOTE | 2020-09-03 13:48 | P.PN ---
Subjective Progress Note Date: 09/03/20 Principal diagnosis: Acute hypoxic respiratory failure secondary to CoVID 19 pneumonia This is a 80-year-old all white male patient of Dr. Lenard Patel, who is a resident of [facility] on [facility], with past medical history of multiple medical problems including coronary artery disease with stenting, previous history of CVA/TIA, hypertension, hyperlipidemia, previous myocardial infarction, pulmonary fibrosis, and wounds on his left leg with history of MRSA infection. Patient had a positive COVID 19 test last month. Patient is a poor historian, unclear what his baseline mental status is. Patient was brought in to the emergency department for evaluation of hypoxemia, with a pulse ox on the 80s, and his FiO2 requirement [facility] at the [facility] the [facility] ient was brought in for evaluation. Patient is complaining of shortness of breath however not any more than usual, no chest discomfort. He required 6 L of oxygen in the emergency department upon arrival. His lab data revealed d-dimer of 26.71, he had elevated troponin of 1.210. He was started on heparin infusion. Renal function is impaired, with B1 of 79 and creatinine of 2.17. His chest x-ray shows some moderate left basilar opacity, no significant pleural effusion or pneumothorax. CT chest showed bilateral moderate patchy groundglass opacities concerning for COVID pneumonia, questionable mild right hydronephrosis. EKG showed sinus tachycardia with nonspecific ST and T-wave abnormality with consideration of lateral ischemia. The patient resting comfortably in bed, in no acute distress, he is on 3 L of oxygen is pulse ox 96%, his been afebrile. Is not complaining of any respiratory distress right now. ProBNP was elevated at 10,500, CRP is elevated at 143.5, his repeat COVID 19 PCR was negative On 08/28/2020 patient seen in follow-up on selective care unit, looks comfortab le, breathing comfortably currently on 3 L of oxygen pulse ox 100%, no fever or chills, hemodynamically has been stable, remains on heparin, his lower extremity Dopplers revealed DVT in the right common femoral vein involving the proximal femoral vein and deep femoral vein. Left side was negative for DVT. No worsening dyspnea, no cough, no hemoptysis no chest pain. No acute events overnight, his labs have been reviewed, showing until, 11, hemoglobin of 12.1, sodium is 1.2, potassium is 4.2, chloride was 111, B1 17 and creatinine is 1.56. Patient continues on breathing treatments and when necessary albuterol. The patient is seen today 08/29/2020 follow-up on the selective care unit. He is confused. Alert. Afebrile. Maintaining O2 saturations in the 90s on room air. White count 9.4. Hemoglobin 12.0. Sodium 143. Potassium 4.4. Creatinine 1.36. AST 117. ALT 102. Glucose 117. He remains on bronchodilators, anticoagulated with Eliquis for DVT. The patient is seen today 08/30/2020 follow-up on the regular medical floor. He is awake, alert, confused. Maintaining O2 saturations in the 90s on 2 L/m per nasal cannula. He is afebrile. Hemodynamically stable. White count 8.7. Hemoglobin 12.3. Sodium 134. Potassium 3.8. Creatinine 1.4. Endocrine regulated with Eliquis. The patient is seen today 09/03/2020 follow-up on the regular medical floor. He is currently maintaining good O2 saturations in the mid 90s on 3 L/m per nasal cannula. He's been afebrile. Hemodynamically stable. He remains on bronchodilators. Oral diuretics. Anticoagulated with Eliquis. He did receive a PEG tube for nutrition yesterday. Objective - Vital Signs Vital signs: Vital Signs Temp 98.9 F 09/03/20 08:00 Pulse 70 09/03/20 08:00 Resp 22 09/03/20 08:00 BP 117/74 09/03/20 08:00 Pulse Ox 98 09/03/20 08:00 Intake & Output 09/02/20 09/03/20 09/03/20 18:59 06:59 18:59 Intake Total 338 60 Output Total 400 545 Balance -62 -485 Weight 88 kg 88 kg Intake: IV 100 Oral 238 60 Output: Urine 400 545 Uretheral (Gamble) 250 Other: Voiding Method Indwelling Catheter Indwelling Catheter # Bowel Movements 0 - Exam GENERAL EXAM: Alert, 80-year-old male patient, on 3 L/m per nasal cannula with a pulse ox of 98%, comfortable in no apparent distress. HEAD: Normocephalic/atraumatic. EYES: Normal reaction of pupils, equal size. Conjunctiva pink, sclera white. NOSE: Clear with pink turbinates. THROAT: No erythema or exudates. NECK: No masses, no JVD, no thyroid enlargement, no adenopathy. CHEST: No chest wall deformity. Symmetrical expansion. LUNGS: Equal air entry with few scattered rhonchi. CVS: Regular rate and rhythm, normal S1 and S2, no gallops, no murmurs, no rubs ABDOMEN: PEG tube exit site clean and dry. Soft, nontender. No hepatosplenomegaly, normal bowel sounds, no guarding or rigidity. EXTREMITIES: No clubbing, no edema, no cyanosis, 2+ pulses and upper and lower extremities. MUSCULOSKELETAL: Muscle strength and tone normal. Chronic wounds on the left leg which is covered with dressing SPINE: No scoliosis or deformity SKIN: No rashes CENTRAL NERVOUS SYSTEM: No focal deficits, tone is normal in all 4 extremities. PSYCHIATRIC: Alert. Unable to assess, confused - Labs CBC & Chem 7: 09/01/20 04:54 09/01/20 04:54 Assessment and Plan Assessment: 1 Acute on chronic hypoxic respiratory failure, possibly related to recent history of COVId 19 infection or possibility of pulmonary embolism based on elevated d-dimer. Patient has underlying pulmonary fibrosis, is normally on oxygen, and is normally short of breath. No fever or chills, CT chest without contrast showing bilateral moderate patchy groundglass opacities. Repeat Covid 19 test was negative 2 Elevated d-dimer, related to right common femoral vein DVT, patient is on Eliquis 3 Elevated troponin, possibly related to acute hypoxia, possibly a pulmonary embolism, cardiology is following 4 Positive COVID19 test last month 5 History of coronary artery disease with previous stenting 6 Pulmonary fibrosis 7 History of left leg chronic wounds with history of MRSA infections 8 PEG tube placement on 09/02/2020 for nutritional support Plan: The patient was seen and evaluated by Dr. Dey Anticoagulated with Eliquis Continue bronchodilators PEG tube placed for nutrition Cleared for discharge from pulmonary standpoint I, the cosigning physician, performed a history & physical examination of the patient. Lungs sounds with few crackles in the posterior bases. Maintaining good O2 saturations in the 90s on 3 L/m per nasal cannula. I discussed the assessment and plan of care with my nurse practitioner, Rhea Dial. I attest to the above note as dictated by her.
--- NOTE | 2020-09-03 14:02 | P.PN ---
Subjective Progress Note Date: 09/03/20 HISTORY OF PRESENT ILLNESS: Patient is status post PEG tube placement. Tube feedings have been started today. He is scheduled for discharge back to ECF today. Afebrile. PHYSICAL EXAM: VITAL SIGNS: Reviewed. GENERAL: Well-developed in no acute distress. HEENT: No sclera icterus. Extraocular movements grossly intact. Moist buccal mucosa. Head is atraumatic, normocephalic. ABDOMEN: Soft. Nondistended. Nontender. PEG tube site clean dry and intact NEUROLOGIC: Pleasantly confused ASSESSMENT: 1. Moderate protein calorie malnutrition status post PEG tube placement 2. Poor oral intake 3. CVA 4. Dementia 5. New right lower extremity DVT and possible PE on Eliquis 6. Recent history of Covid 19 infection PLAN: -Tube feedings to start today and continue to be titrated at ECF per dietitian recommendations -Patient is stable from surgical standpoint for discharge Physician Buttonhole Marker note has been reviewed by physician. Signing provider agrees with the documented findings, assessment, and plan of care. Objective - Vital Signs Vital signs: Vital Signs Temp 98.9 F 09/03/20 08:00 Pulse 70 09/03/20 08:00 Resp 22 09/03/20 08:00 BP 117/74 09/03/20 08:00 Pulse Ox 98 09/03/20 08:00 Intake & Output 09/02/20 09/03/20 09/03/20 18:59 06:59 18:59 Intake Total 338 60 Output Total 400 545 Balance -62 -485 Weight 88 kg 88 kg Intake: IV 100 Oral 238 60 Output: Urine 400 545 Uretheral (Gamble) 250 Other: Voiding Method Indwelling Catheter Indwelling Catheter # Bowel Movements 0 - Labs CBC & Chem 7: 09/01/20 04:54 09/01/20 04:54
[2020-09-03] MEDS: CYCLOBENZAPRINE 10 MG TAB PO SCH (20:24)
[2020-09-03] MEDS: TAMSULOSIN 0.4 MG CAP.ER.24H PO SCH (20:24)
[2020-09-03] MEDS: ATORVASTATIN 80 MG TAB PO SCH (20:24)
[2020-09-03] MEDS: traZODone HCL 100 MG TAB PO SCH (20:24)
[2020-09-03] MEDS: MELATONIN 5 MG TABLET PO SCH (20:24)
[2020-09-03] MEDS: SODIUM CHLORIDE 0.9% 1,000 ML IV SCH (21:50)
[2020-09-04] MEDS: ACETAMINOPHEN TAB 325 MG TAB PO SCH ×2 (03:02→10:27)
[2020-09-04] MEDS: FUROSEMIDE 20 MG TAB PO SCH (05:37)
[2020-09-04] MEDS: GABAPENTIN 300 MG CAP PO SCH ×2 (05:37→13:28)
[2020-09-04 07:55] VITALS: PULSE 61; RESP 24
[2020-09-04 07:58] VITALS: BP 96/59; TEMP 97.8
[2020-09-04] MEDS: ALBUTEROL HFA INHALER INHALATION SCH ×2 (08:20→13:14)
[2020-09-04] MEDS: BUDESONIDE 0.5 MG/2 ML NEBU INHALATION SCH (08:21)
[2020-09-04] MEDS: METOPROLOL TARTRATE 50 MG TAB PO SCH (10:27)
[2020-09-04] MEDS: PANTOPRAZOLE 40 MG TABLET PO SCH (10:27)
[2020-09-04] MEDS: ASPIRIN 81 MG PO SCH (10:28)
[2020-09-04] MEDS: AMMONIUM LACTATE 12% CREAM 140 GM TUBE TOPICAL SCH (10:28)
[2020-09-04] MEDS: CYANOCOBALAMIN 500 MCG TAB PO SCH (10:28)
[2020-09-04] MEDS: MIDODRINE 5 MG TAB PO SCH ×2 (10:30→10:31)
[2020-09-04] MEDS: MEGESTROL 400 MG/10 ML CUP PO SCH (10:31)
[2020-09-04] MEDS: ESCITALOPRAM 10 MG TAB PO SCH (10:31)
[2020-09-04] MEDS: SENNOSIDES-DOCUSATE SODIUM 1 EACH TAB PO SCH (10:33)
--- NOTE | 2020-09-04 12:39 | P.PN ---
Subjective Progress Note Date: 09/04/20 Principal diagnosis: Acute hypoxic respiratory failure, weakness, COVID 19 This is a 80-year-old all white male patient of Dr. Lenard Patel, who is a resident of [facility] on [facility], with past medical history of multiple medical problems including coronary artery disease with stenting, previous history of CVA/TIA, hypertension, hyperlipidemia, previous myocardial infarction, pulmonary fibrosis, and wounds on his left leg with history of MRSA infection. Patient had a positive COVID 19 test last month. Patient is a poor historian, unclear what his baseline mental status is. Patient was brought in to the emergency department for evaluation of hypoxemia, with a pulse ox on the 80s, and his FiO2 requirement continue to increase at the [facility], the patient was brought in for evaluation. Patient is complaining of shortness of breath however not any more than usual, no chest discomfort. He required 6 L of oxygen in the emergency department upon arrival. His lab data revealed d-dimer of 26.71, he had elevated troponin of 1.210. He was started on heparin infu diana. Renal function is impaired, with B1 of 79 and creatinine of 2.17. His chest x-ray shows some moderate left basilar opacity, no significant pleural effusion or pneumothorax. CT chest showed bilateral moderate patchy groundglass opacities concerning for COVID pneumonia, questionable mild right hydronephrosis. EKG showed sinus tachycardia with nonspecific ST and T-wave abnormality with consideration of lateral ischemia. The patient resting comfortably in bed, in no acute distress, he is on 3 L of oxygen is pulse ox 96%, his been afebrile. Is not complaining of any respiratory distress right now. ProBNP was elevated at 10,500, CRP is elevated at 143.5, his repeat COVID 19 PCR was negative On 08/28/2020 patient seen in follow-up on selective care unit, looks comfortable, breathing comfortably currently on 3 L of oxygen pulse ox 100%, no fever or chills, hemodynamically has been stable, remains on heparin, his lower extremity Dopplers revealed DVT in the right common femoral vein involving the proximal femoral vein and deep femoral vein. Left side was negative for DVT. No worsening dyspnea, no cough, no hemoptysis no chest pain. No acute events overnight, his labs have been reviewed, showing until, 11, hemoglobin of 12.1, sodium is 1.2, potassium is 4.2, chloride was 111, B1 17 and creatinine is 1.56. Patient continues on breathing treatments and when necessary albuterol. On 09/01/2020 patient seen in follow-up on the medical floor, today she is anxious, he is yelling out, but he is easily redirected , he is fairly cooperative, he is currently on 3 L of oxygen his pulse ox is 92-93%, he denies any worsening dyspnea, lung sounds reveal some fine rales scattered bilaterally, no significant cough, no wheezing or congestion, no complaints of chest pain, he is on Eliquis for evidence of right lower extremity DVT, no acute events overnight, he is tolerating oral intake, discharge planning is in progress for discharge to long-term care facility today On 09/02/2020 patient seen in follow-up for floor, he has remained stable from pulmonary perspective, he remains on supplemental oxygen at 3 L, his pulse ox is 95%, hemodynamically stable, denies any worsening dyspnea, his been afebrile, lung sounds reveal diminished breath sounds with bibasilar crackles, patient does have occasional cough, no phlegm production. No new chest x-ray, today's labs have been reviewed, showing white blood cell count of 11.8, hemoglobin is 12.6, sodium is 140, potassium is 4.2, chloride is 105, B1 is 37, creatinine is 1. Patient was started on Eliquis which is currently on hold for the PEG tube insertion today. On 09/04/2020 patient was seen in follow-up on medical floor, no worsening dyspnea, he is breathing comfortably, currently on 3 L of oxygen pulse ox of 95-98%, no fever or chills, signs have been stable, lung sounds revealed same mild basilar crackles, no rhonchi or wheezing, patient had his PEG tube put in the day before yesterday, 2 feedings have been started with Jevity 1.5 at a rate of 45, with a goal of 62, and patient has been tolerating tube feedings well, no abdominal discomfort, abdomen is soft, nontender. His labs have been reviewed, showing white blood cell count 11.8, hemoglobin is 12.6, electrolytes are within normal limits, BUN is 37 and creatinine is 1, liver enzymes are improving, has had no fever or chills. No acute events overnight Objective - Vital Signs Vital signs: Vital Signs Temp 97.8 F 09/04/20 07:38 Pulse 61 09/04/20 07:38 Resp 24 09/04/20 07:38 BP 96/59 09/04/20 07:38 Pulse Ox 95 09/04/20 07:38 Intake & Output 09/03/20 09/04/20 09/04/20 18:59 06:59 18:59 Output Total 220 Balance -220 Weight 90 kg 90 kg Output: Urine 220 Other: Voiding Method Indwelling Catheter Indwelling Catheter Indwelling Catheter - Exam GENERAL EXAM: Alert, very pleasant, 80-year-old white female, on 3 L of oxygen a pulse ox of 95 %, comfortable in no apparent distress. HEAD: Normocephalic/atraumatic. EYES: Normal reaction of pupils, equal size. Conjunctiva pink, sclera white. NOSE: Clear with pink turbinates. THROAT: No erythema or exudates. NECK: No masses, no JVD, no thyroid enlargement, no adenopathy. CHEST: No chest wall deformity. Symmetrical expansion. LUNGS: Equal air entry with no crackles, wheeze, rhonchi or dullness. CVS: Regular rate and rhythm, normal S1 and S2, no gallops, no murmurs, no rubs ABDOMEN: Soft, nontender. No hepatosplenomegaly, normal bowel sounds, no guarding or rigidity. Patient has a PEG tube in the left upper quadrant, has 2 feedings infusing with Jevity 1.5 at a rate of 45 with a goal 62 EXTREMITIES: No clubbing, no edema, no cyanosis, 2+ pulses and upper and lower extremities. MUSCULOSKELETAL: Muscle strength and tone normal. Chronic wounds on the left leg which is covered with dressing SPINE: No scoliosis or deformity SKIN: No rashes CENTRAL NERVOUS SYSTEM: Alert and oriented -2. No focal deficits, tone is normal in all 4 extremities. PSYCHIATRIC: Alert and oriented -3. Appropriate affect. Intact judgment and insight. - Labs CBC & Chem 7: 09/01/20 04:54 09/01/20 04:54 Assessment and Plan Plan: Assessment: #1. Acute on chronic hypoxic respiratory failure, possibly related to recent history of COVId 19 infection or possibility of pulmonary embolism based on elevated d-dimer. Patient has underlying pulmonary fibrosis, is normally on oxygen, and is normally short of breath. No fever or chills, CT chest without c ontrast showing bilateral moderate patchy groundglass opacities. Repeat Covid 19 test was negative #2. Elevated d-dimer, related to right common femoral vein DVT, patient is currently on heparin, will be switched to Eliquis #3. Elevated troponin, possibly related to acute hypoxia, possibly a pulmonary embolism, cardiology is following, patient has been started on heparin infusion #4. Positive COVID19 test last month #5. History of coronary artery disease with previous stenting #6. Pulmonary fibrosis #7. History of left leg chronic wounds with history of MRSA infections #8. Moderate malnutrition, status post PEG tube insertion, and patient is tolerating tube feedings well Plan: No acute events overnight, remains stable from pulmonary perspective, continue weaning FiO2, vital signs have been stable, from pulmonary perspective patient is stable for discharge back to the ECF today I performed a history & physical examination of the patient and discussed their management with my nurse practitioner, Eli Ayala. I reviewed the nurse practitioner's note and agree with the documented findings and plan of care. Lung sounds are positive for diminished breath sounds The findings and the impression was discussed with the patient. I attest to the documentation by the nurse practitioner. Time with Patient: Less than 30
[2020-09-04 13:06] VITALS: BMI 26.2
--- NOTE | 2020-09-04 13:57 | P.PN ---
Subjective Progress Note Date: 09/04/20 HISTORY OF PRESENT ILLNESS: Patient is status post PEG tube placement. He is tolerating tube feeds. He is scheduled for discharge back to [facility] today. Afebrile. PHYSICAL EXAM: VITAL SIGNS: Reviewed. GENERAL: Well-developed in no acute distress. HEENT: No sclera icterus. Extraocular movements grossly intact. Moist buccal mucosa. Head is atraumatic, normocephalic. ABDOMEN: Soft. Nondistended. Nontender. PEG tube site clean dry and intact NEUROLOGIC: Pleasantly confused ASSESSMENT: 1. Moderate protein calorie malnutrition status post PEG tube placement 2. Poor oral intake 3. CVA 4. Dementia 5. New right lower extremity DVT and possible PE on Eliquis 6. Recent history of Covid 19 infection PLAN: -Continue tube feedings per dietitian recommendations -Patient is stable from surgical standpoint for discharge [facility] note has been reviewed by physician. Signing provider agrees with the documented findings, assessment, and plan of care. Objective - Vital Signs Vital signs: Vital Signs Temp 97.8 F 09/04/20 07:38 Pulse 61 09/04/20 07:38 Resp 24 09/04/20 07:38 BP 96/59 09/04/20 07:38 Pulse Ox 95 09/04/20 07:38 Intake & Output 09/03/20 09/04/20 09/04/20 18:59 06:59 18:59 Output Total 220 Balance -220 Weight 90 kg 90 kg 90 kg Output: Urine 220 Other: Voiding Method Indwelling Catheter Indwelling Catheter Indwelling Catheter - Labs CBC & Chem 7: 09/01/20 04:54 09/01/20 04:54
== END 2020-09-04 14:05 | DRG 177 ==
LOC: EC 16:34 → 3SCARD 21:26 → 6NMEDSUR 08-29 12:39
PROVIDERS: ADMIT Family Medicine; ATTEND Family Medicine
PROC: 0DH63UZ Insertion of Feeding Device into Stomach, Percutaneous Approach (ICD-10-PCS; principal; 2020-09-02 08:30)
DX: U07.1 COVID-19 (principal); G93.41 Metabolic encephalopathy; J12.82 Pneumonia due to coronavirus disease 2019; J96.21 Acute and chronic respiratory failure with hypoxia; I26.99 Other pulmonary embolism without acute cor pulmonale; E44.0 Moderate protein-calorie malnutrition; I82.411 Acute embolism and thrombosis of right femoral vein; N17.9 Acute kidney failure, unspecified; I50.32 Chronic diastolic (congestive) heart failure; J44.0 Chronic obstructive pulmonary disease with (acute) lower respiratory infection; F03.90 Unspecified dementia, unspecified severity, without behavioral disturbance, psychotic disturbance, mood disturbance, and anxiety; I11.0 Hypertensive heart disease with heart failure; J84.10 Pulmonary fibrosis, unspecified; L89.611 Pressure ulcer of right heel, stage 1; L89.891 Pressure ulcer of other site, stage 1; E78.5 Hyperlipidemia, unspecified; I25.10 Atherosclerotic heart disease of native coronary artery without angina pectoris; G62.9 Polyneuropathy, unspecified; Z96.641 Presence of right artificial hip joint; K21.9 Gastro-esophageal reflux disease without esophagitis; N40.0 Benign prostatic hyperplasia without lower urinary tract symptoms; Z79.01 Long term (current) use of anticoagulants; Z79.02 Long term (current) use of antithrombotics/antiplatelets; Z79.82 Long term (current) use of aspirin; Z79.899 Other long term (current) drug therapy; I25.2 Old myocardial infarction; Z83.3 Family history of diabetes mellitus; Z86.14 Personal history of Methicillin resistant Staphylococcus aureus infection; Z86.73 Personal history of transient ischemic attack (TIA), and cerebral infarction without residual deficits; Z95.5 Presence of coronary angioplasty implant and graft; Z79.891 Long term (current) use of opiate analgesic; Z88.1 Allergy status to other antibiotic agents; Z88.8 Allergy status to other drugs, medicaments and biological substances; Z80.9 Family history of malignant neoplasm, unspecified
CPT/HCPCS: 36415; 43246; 71045; 71250; 80048; 80053; 83036; 83605; 83735; 83880; 84134; 84484; 85025; 85027; 85379; 85610; 85730; 86140; 87635; 93005; 93970; 94640; 94760; 96365; 96366; 96368; 96375; 99291